=== PATIENT | male | born 1940 | race Caucasian/White ===

== ENCOUNTER 2019-04-29 19:15 | Inpatient (IN) | payer BC, MEDICARE ==
--- NOTE | 2019-04-29 19:35 | EDM.PDOC ---
ED HPI GENERAL MEDICAL PROBLEM - General Chief Complaint: General Stated Complaint: MEDICAL [facility] Time Seen by Provider: 04/29/19 19:35 Source of Information: Reports: Patient, EMS History Limitations: Reports: No Limitations - History of Present Illness INITIAL COMMENTS - FREE TEXT/NARRATIVE: pt had been at a friends tonight for supper. He did not turn the yard lit on and he went out to the car to leave. He slipped and hit his nose and his face on the car. He is having pain in the left shoulder and he has weakness in the left hand. Onset: Sudden Duration: Hour(s): Location: Reports: Face, Neck, Upper Extremity, Left Associated Symptoms: Reports: Weakness, Other (pt has weakness in the left hand. ) - Related Data Allergies Allergy/AdvReac Type Severity Reaction Status Date / Time lisinopril Allergy Other Verified 04/29/19 19:22 Home Meds: Home Meds Allopurinol [Zyloprim] 300 mg PO DAILY 03/25/16 [History] Aspirin 325 mg PO BEDTIME 03/25/16 [History] Furosemide 40 mg PO BIDAC #60 tablet 03/25/16 [Rx] metFORMIN HCl [Metformin HCl] 1,000 mg PO DAILY 03/25/16 [History] Insulin NPH/Insulin Reg,Human [Novolin 70-30] 40 units SQ BEDTIME 04/29/19 [ History] Insulin NPH/Insulin Reg,Human [Novolin 70-30] 60 units SQ DAILY 04/29/19 [ History] Metoprolol Succinate 100 mg PO DAILY 04/29/19 [History] Potassium Chloride 10 meq PO BEDTIME 04/29/19 [History] Potassium Chloride 20 meq PO DAILY 04/29/19 [History] Warfarin [Coumadin] 5 mg PO DAILY 04/29/19 [History] atorvaSTATin [Lipitor] 40 mg PO BEDTIME 04/29/19 [History] Past Medical History HEENT History: Reports: Cataract Cardiovascular History: Reports: Heart Failure, High Cholesterol, Hypertension Musculoskeletal History: Reports: Other (See Below) Other Musculoskeletal History: torn rotator cuff Endocrine/Metabolic History: Reports: Diabetes, Type II - Infectious Disease History Infectious Disease History: Reports: Mumps - Past Surgical History HEENT Surgical History: Reports: Cataract Surgery Cardiovascular Surgical History: Reports: Coronary Artery Bypass Musculoskeletal Surgical History: Reports: Shoulder Surgery Social & Family History - Family History Endocrine/Metabolic: Reports: Diabetes, type II - Caffeine Use Caffeine Use: Reports: Coffee ED ROS GENERAL - Review of Systems Review Of Systems: See Below Constitutional: Reports: No Symptoms HEENT: Reports: Other (pt hit his nose on the car and he has a nose bleed. A clamp was placed on the nose. ) Respiratory: Reports: No Symptoms Cardiovascular: Reports: No Symptoms Endocrine: Reports: No Symptoms GI/Abdominal: Reports: No Symptoms : Reports: No Symptoms Musculoskeletal: Reports: Other (pain in the left shoulder, weakness in lsft hand, paion in the cervical are and he has bruising over the nose. ) ED EXAM, GENERAL - Physical Exam Exam: See Below Free Text/Narrative:: pt arrived with a nose bleed and swelling of the nasal area. He has pain in the cervical area. He has a history of being on coumadin. Pt was going to get in his car and he missed the door handle and he hit his face on the handle. He was not knocked out. Exam Limited By: No Limitations General Appearance: Alert, Anxious, Moderate Distress, Other (pupils are equal and reactive.) Ears: Normal TMs Nose: Nasal Tenderness, Nasal Swelling, Other ( there is bleeding from the left nare area. ) Throat/Mouth: Normal Inspection Head: Atraumatic Neck: Tender Lateral, Other (pt is tender in the left post cervcal area. He is having difficulty using his left hand. He is having trouble making a fist. ) Respiratory/Chest: No Respiratory Distress Cardiovascular: Regular Rate, Rhythm GI/Abdominal: Soft, Non-Tender (Male) Exam: Deferred Rectal (Males) Exam: Deferred Back Exam: Normal Inspection Extremities: Other (He is having trouble making a fist with the left hand. ) Neurological: Alert, Oriented, Normal Cognition Psychiatric: Normal Affect Course - Vital Signs Last Recorded V/S: Last Vital Signs Temp 37.1 C 04/29/19 20:10 Pulse 69 04/29/19 22:45 Resp 20 04/29/19 22:45 BP 102/50 L 04/29/19 22:45 Pulse Ox 94 L 04/29/19 22:45 - Orders/Labs/Meds Orders: Active Orders 24 hr Category Date Time Status cefTRIAXone [Rocephin] 1 gm Med 04/29/19 23:42 Active Sodium Chloride 0.9% [Normal Saline] 50 ml IV ONETIME Medication Orders Ceftriaxone Sodium 1 gm/ (Sodium Chloride) 50 mls @ 100 mls/hr IV ONETIME ONE Stop: 04/30/19 00:11 Labs: Laboratory Tests 04/29/19 Range/Units 19:59 PT 20.6 H (9.5-12.0) sec INR 1.98 H (0.80-1.20) Meds: Medications Generic Name Dose Route Start Last Admin Trade Name Freq PRN Reason Stop Dose Admin Ceftriaxone Sodium 1 gm/ 50 mls @ 100 mls/hr 04/29/19 23:42 Sodium Chloride IV 04/30/19 00:11 ONETIME ONE Discontinued Medications Generic Name Dose Route Start Last Admin Trade Name Freq PRN Reason Stop Dose Admin Hydromorphone HCl 0.5 mg 04/29/19 20:12 04/29/19 20:15 Dilaudid IVPUSH 04/29/19 20:13 0.5 mg ONETIME ONE Administration Hydromorphone HCl 0.5 mg 04/29/19 22:23 04/29/19 22:34 Dilaudid IVPUSH 04/29/19 22:24 0.5 mg ONETIME ONE Administration - Re-Assessments/Exams Free Text/Narrative Re-Assessment/Exam: 04/29/19 22:49 pt arrived with pain in his neck and facial area. He is on coumadin. He had a cat scan of the head which was neg. He had a cat scan of the cervical spine that showed degenerative changes but no acute fracture. He had a xray of his left shoulder that was neg. 04/29/19 23:44 Dr Conklin neurosurgery [facility] was consulted regarding admitting pt to the local Hosp. She felt this was a cord contussion but recommended a soft collar for over nite and a MRI of the cervical spine in the am. 04/29/19 23:59 pt is on coumadin therapy and he had persistent bleeding from both nares. A cat scan of the facial area showed blood in the sinuses and a nasal fracture. He was packed with a rapid rhino on the left and a ant pack was placed with vaseline guaze on the rt. At this point is bleeding is under control. He had his last tetanus in 2013. He was stood up and the numbness in his legs are better. He is able to stand but because of all the blood loss he is lite headed when he stands. Departure - Departure Time of Disposition: 23:51 Disposition: Admitted As Inpatient 65 Condition: Fair Clinical Impression: Spinal cord concussion, Nasal fracture, Bleeding from the nose - Discharge Information Referrals: PCP,None [Primary Care Provider] - Forms: ED Department Discharge Care Plan Goals: admit to Dr Alvarado - My Orders Last 24 Hours: My Active Orders 04/29/19 23:42 cefTRIAXone [Rocephin] 1 gm Sodium Chloride 0.9% [Normal Saline] 50 ml IV ONETIME - Assessment/Plan Last 24 Hours: My Active Orders 04/29/19 23:42 cefTRIAXone [Rocephin] 1 gm Sodium Chloride 0.9% [Normal Saline] 50 ml IV ONETIME
[2019-04-29] MEDS ORDERED: HYDROmorphone 0.5 MG/0.5 ML Syringe IVPUSH ONE ×2 (20:12→22:23)
--- NOTE | 2019-04-29 21:29 | CRLCR ---
Indication: Left shoulder pain, left hand weakness Technique: Three views of the left shoulder Comparison: None Findings/Impression: There is no fracture or intrinsic bone lesion. The glenohumeral joint is anatomically aligned. The surrounding soft tissues are unremarkable. Dictated by Herminio Fischer MD @ Apr 29 2019 9:26PM Signed by Dr. Herminio Fischer @ Apr 29 2019 9:27PM
--- NOTE | 2019-04-29 21:49 | CRLCT ---
Indication: Neck pain, left hand weakness Technique: Nonenhanced axial CT imaging through the head. Coronal reconstructions are provided. Comparison: None Findings: There is no intracranial hemorrhage, edema, or mass effect. There is mild patchy hypoattenuation of the periventricular white matter likely reflecting chronic microvascular ischemic change. The ventricles are normal in size. The basal cisterns are patent. The calvarium is intact. There is a frontal scalp hematoma. There is partial opacification of the right frontal sinus, ethmoid air cells, and partially visualized right maxillary sinus with air-fluid level in hyperdense contents in the right maxillary sinus, likely reflecting hemorrhage. Fracture of the bony nasal septum is suggested. Impression: 1. No acute intracranial process. 2. Hyperdense fluid in the right maxillary sinus suggesting hemorrhage and likely fracture of the bony nasal septum. Dedicated facial CT is recommended for further evaluation. Please note that all CT scans at this facility use dose modulation, iterative reconstruction, and/or weight-based dosing when appropriate to reduce radiation dose to as low as reasonably achievable. Dictated by Herminio Fischer MD @ Apr 29 2019 9:41PM Signed by Dr. Herminio Fischer @ Apr 29 2019 9:47PM
--- NOTE | 2019-04-29 22:37 | CRLCT ---
Indication: Blow to the head, nose, and cervical spine, left hand weakness Technique: Nonenhanced axial CT imaging through the cervical spine. Sagittal and coronal reconstructions are provided. Comparison: None Findings: There is mild thickening of the. Small calcific focus along the anterior inferior margin of the C4 vertebral body is favored to represent ligamentous calcification. No definite cervical spine fracture is demonstrated. The cervical vertebral bodies are normal in height. The atlantoaxial and atlantooccipital relationships are maintained. There is reversal of cervical lordosis centered at C5-6. There is moderate degenerative disc height loss at C5-6 with disc bulging endplate osteophytosis resulting in moderate spinal stenosis and severe bilateral neural foraminal stenosis. There is also prominent degenerative facet hypertrophy at C2-3 and C3-4 on the left resulting in severe neural foraminal stenosis at both levels. Impression: 1. Mild indeterminate thickening of the prevertebral soft tissues of the lower cervical levels. Further evaluation with MRI is recommended to exclude ligamentous injury. 2. No acute fracture or traumatic malalignment. 3. Multilevel degenerative changes, as above. Please note that all CT scans at this facility use dose modulation, iterative reconstruction, and/or weight-based dosing when appropriate to reduce radiation dose to as low as reasonably achievable. Dictated by Herminio Fischer MD @ Apr 29 2019 10:25PM Signed by Dr. Herminio Fischer @ Apr 29 2019 10:37PM
--- NOTE | 2019-04-29 23:12 | CRLCT ---
Indication: Head trauma, facial fractures Technique: Nonenhanced axial CT images through the face. Sagittal and coronal reconstructions are provided. Comparison: CT head without contrast 04/19/2019 Findings: There is suggestion of a minimally displaced fracture of the right nasal bone. Again demonstrated is a minimally displaced fracture through the anterior portion of the bone use obtained. Hyperdense fluid in the right maxillary and sphenoid sinuses is compatible with small amount of hemorrhage. No fractures are seen through the orbital young, maxillary sinus young, and zygomatic arches. The orbital contents are normal. The mandible is intact. The temporomandibular joints are anatomically aligned. The skullbase appears intact. The mastoid air cells are well aerated. A hematoma is again noted in the superior nasal/frontal scalp. Impression: Likely minimally displaced fracture of the right nasal bone and fracture of the osseous nasal septum. Mild hemorrhage within the right maxillary and sphenoid sinuses. No evidence of maxillary sinus, orbital wall, or skullbase fracture. Please note that all CT scans at this facility use dose modulation, iterative reconstruction, and/or weight-based dosing when appropriate to reduce radiation dose to as low as reasonably achievable. Dictated by Herminio Fischer MD @ Apr 29 2019 10:53PM Signed by Dr. Herminio Fischer @ Apr 29 2019 11:11PM
[2019-04-29] MEDS ORDERED: cefTRIAXone 1 GM in Sodium Chloride 0.9% 50 ML IV ONE (23:42)
[2019-04-30] MEDS: Acetaminophen 325 MG Tab PO PRN ×2 (01:58→19:36)
--- NOTE | 2019-04-30 02:17 | HP ---
IDENTIFYING DATA: King Bhatt is a 78-year-old , male from [place], [place]. CHIEF COMPLAINT: "I fell." HISTORY OF PRESENT ILLNESS: Adult gentleman reports he was visiting a friend at suppertime this evening, as he was leaving the residence and walking toward his car, he reached for the car, slipped and fell, striking his face on the doorframe. He denies loss of consciousness or dizziness, though following the fall had significant weakness in the left upper extremity with paresthesias in the arms and legs. He was unable to ambulate with injuries to the facial area noted. He was transported to the emergency room for evaluation. He notes some interval improvement in his arm weakness as well as leg weakness. He has had no history of stroke or previous similar occurrence. He does report a history of cardiac arrhythmia with long-term Coumadin anticoagulant therapy accompanying his noted ischemic heart disease. PAST MEDICAL HISTORY: History of type 2 diabetes with b.i.d. NPH insulin therapies, followed by his [facility] physician in [place]. Denies a history of stroke or stroke-like symptoms. No history of glaucoma. No chronic neuropathy or paresthesias in the feet. Does have a reported history of coronary artery disease with 3-vessel coronary artery bypass graft in 2005. Additionally, he reports cardiac catheterization and stent placement 3 years ago. No recent episodes of angina-like pain. No palpitations, syncope, or near syncope reported. Also has a recognized history of hyperuricemia with gout, hypertension, ischemic cardiomyopathy with congestive heart failure, and hyperlipidemia. Additionally, he has a recognized history of hearing loss. Does have bilateral hearing aids, currently not worn. PREVIOUS SURGERIES: Include CABG, coronary artery stenting, and bilateral cataract extractions. HABITS: Nonsmoker of greater than 20 years' time. Infrequent use of caffeinated beverages. No alcohol use reported. ALLERGIES: REPORTED TO LISINOPRIL. CURRENT MEDICATIONS: Include allopurinol 300 mg daily, aspirin 325 mg at bedtime, furosemide 40 mg b.i.d., metformin 1000 mg daily; NPH insulin 70/30, 40 units at bedtime, 60 units in a.m.; metoprolol succinate 100 mg daily; potassium chloride 10 mEq at bedtime, 20 mEq in a.m.; Coumadin 5 mg daily, atorvastatin 40 mg at bedtime. SOCIAL HISTORY: Retired, living independently [place]. Generally performs ADLs without assistance. Drives without difficulty. FAMILY HISTORY: Noncontributory. REVIEW OF SYSTEMS: NEUROLOGIC: No history of strokes, chronic headaches, retinopathy, or chronic visual loss. Denies glaucoma. Does have a history of bilateral cataract extraction. No history of paresthesias, weakness, general imbalance, or peripheral neuropathy. CARDIAC: As above. RESPIRATORY: Denies asthma, emphysema, chronic cough, sputum production, or recent URIs. GI: No chronic dyspepsia, hepatitis, jaundice, gallbladder disease, bowel changes, diarrhea, or hematochezia. : Voids twice nightly. Records indicate a history of stage III renal insufficiency. No urinary incontinence. No dysuria or gross hematuria. MUSCULOSKELETAL: History of rotator cuff disease. No chronic arthralgias in the upper or lower extremities. PHYSICAL EXAMINATION: GENERAL: Appearance is that of an elderly male, resting comfortably in the emergency room bay, significant facial bruising is noted. VITAL SIGNS: Temperature 37.1, pulse 69 and regular, respiratory rate 20, blood pressure 102/50, O2 saturations 94% on room air. HEENT: Markedly diminished hearing. Hearing aids are not currently in place. Canals and TMs are normal. Eyes reveal previous cataract extractions. Symmetrical extraocular eye movements without nystagmus. Sclerae anicteric. Nasal packing in place bilaterally. Significant bruising in the periorbital and nasal regions. Mouth is dry. Dentures are worn. No evidence of acute oropharyngeal trauma. NECK: Brisk carotid pulses. No stridor or adenopathy. LUNGS: Symmetrical, clear, resonant, non-tachypneic. HEART: Regular. Rhythm strip suggests underlying atrial fibrillation with controlled rate. ABDOMEN: Soft, nontender, nondistended. No organomegaly. Active sounds. Good femoral pulses. No abdominal bruits. No guarding, rebound, or referred pain. No CVA tenderness. EXTREMITIES: Abrasion over the anterior left knee. Good radial and posterior tibial pulses. Non-diaphoretic. No cyanosis noted. He has mild weakness with right hand grasp, more significant weakness with hand grasp and extension of the digits of the left arm as well as flexion and extension across the elbow and left wrist. He reports of initial lower extremity weakness, though now shows good flexion and extension on command at the great toes and ankles. He is not ambulated at the present time. LABORATORY DATA: On admission, INR 1.98. IMAGING: CT of the sinuses reveal evidence of a nasal fracture as well as blood in the right maxillary and sphenoid sinus without evidence of orbital wall or skull base fracture. Shoulder x-ray showed no acute bony injury. Cervical spine CT again shows no evidence of acute bony injury or trauma to the cord. No spinal canal bleeding is evident. IMPRESSION: 1. Fall. The patient denying loss of consciousness, resultant facial contusion with nasal fracture and mild sinus bleeding into the right maxillary and sphenoid area. 2. Weakness of the lower extremities and left upper extremity showing interval improvement since fall. Consider cord contusion. No evidence of acute neurologic injury by CT imaging. 3. History of coronary artery disease status post CABG of 2005. More recent history of 3- vessel cardiac stenting with stable ischemic heart disease. 4. Hypertension. 5. Hyperlipidemia. 6. Type 2 diabetes with chronic insulin therapies. 7. Hyperuricemia with history of gout on allopurinol therapy. 8. Chronic shoulder pain secondary to rotator cuff disease. 9. Stage III renal insufficiency. PLAN: With patient's acute injury and neurologic weakness, he is unable to care for self in an unmonitored setting. Therefore, we will admit to observation bed with routine vitals and neuro checks, assistance with performance of ADLs and ambulation. We will request PT assessment in the a.m. Neurosurgery Services have suggested further imaging with MRI of the cervical spine, though given history of coronary artery bypass graft and arterial stenting, he is not a candidate for MR imaging. Therefore, we will continue to monitor in the observation setting. Coumadin and aspirin therapies will be held in the immediate post injury period, with anticipated resumption as his condition stabilizes. We will monitor b.i.d. gluco checks, provide consistent carb diet as well as insulin, and increase activity as tolerated. Consider discharge to home when neurologic status is stable and the patient is able to assume independent performance of activities of daily living. Full code status is to be maintained during the hospital stay. Todd Alvarado MD /[id number]
[2019-04-30] MEDS ORDERED: traMADol 50 MG Tab PO PRN (03:01)
[2019-04-30] MEDS ORDERED: Lidocaine 2% Jelly 10 ML Urojet MUCMEM STA (03:35)
[2019-04-30] MEDS ORDERED: Acetaminophen/HYDROcodone 325-10 MG Tab PO PRN (05:19)
[2019-04-30] MEDS: oxyCODONE 5 MG Tab PO PRN ×3 (07:54→19:35)
[2019-04-30] MEDS ORDERED: Insulin NPH/Insulin Regular,Human 70-30 100 Units/ML 10 ML Vial SUBCUT SCH ×4 (09:00→21:00)
[2019-04-30] MEDS ORDERED: Potassium Chloride 20 MEQ Tab.ER PO ONE (12:00)
--- NOTE | 2019-04-30 12:40 | PN ---
DATE OF SERVICE: 04/30/2019 SUBJECTIVE: A 78-year-old male living independently, was admitted in the electronic assembly hours following a fall and resultant facial trauma with accompanying upper and lower extremity weakness suggesting a potential cervical spine contusion. He has had significant facial pain through the nighttime hours. Analgesic therapy was escalated from tramadol to hydrocodone to oxycodone, now notes relative relief. Bilateral nasal packings are in place for reasons of significant persistent epistaxis on arrival. He is taking liquids and small amounts of food without discomfort. Denies dysphagia. No visual disturbance. Chronic hearing loss is managed with use of hearing aids. He continues to have significant weakness in the upper and lower extremities, being transferred with Muna lift and moderate to marked left hand weakness with grasp and mild to moderate right-sided weakness. No paresthesias are noted. No cardiac, respiratory, or GI complaints. He has a recognized history of ischemic heart disease with previous coronary artery bypass graft of 2005 and subsequent 3-vessel coronary artery stenting approximately 3 years ago. Additionally, he has paroxysmal atrial fibrillation with use of Coumadin anticoagulant therapy. Coumadin therapy is now on hold. Diabetes is managed with use of Novolin 70/30 on a b.i.d. schedule. Unsure of last diabetic labs obtained by his [facility] provider. He did have bladder distention and urinary retention through the nighttime with bladder scan revealing 1000 mL of retained urine necessitating placement of a Rubi catheter. OBJECTIVE: VITAL SIGNS: Temperature 37.3, pulse rate 69, AFib by cardiac monitoring, blood pressure 105/72, respiratory rate 20 with O2 saturations of 96% on room air. GENERAL: He is awake, attentive, oriented to person, place, and time. Hearing remains diminished, though hearing aids are in place. He has significant bruising in the periorbital and nasal regions. Nasal packings bilaterally remain in place. Speech is clear. NECK: No pain is noted. Good range of motion. Brisk carotid pulses without bruits. LUNGS: Few inspiratory rales, non-tachypneic. No wheezes. HEART: Atrial fibrillation by cardiac monitoring. Controlled rate. No murmurs noted. EXTREMITIES: Significant weakness with left hand grasp as well as flexion and extension at the left elbow. Mild weakness with right hand grasp. He has good abduction at the shoulders against resistance, is able to raise hands overhead as well. Normal sensation in the fingertips. He has reasonably well-maintained strength to dorsi and plantar flexion of the ankles and great toes, though has instability and imbalance when standing requiring use of Muna lift. IMPRESSION: 1. Fall with facial contusions leading to nasal fracture with epistaxis. 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 This is not confirmed by presenting CT imaging obtained in the emergency room. 2. History of ischemic heart disease, chronic, stable, prior coronary artery bypass graft and vascular stenting. 3. Type 2 diabetes, on insulin therapies. 4. Hypertension and hyperlipidemia. 5. Hearing loss. PLAN: PT/OT assessments are requested today to determine rehabilitative needs. The patient understands if weakness is persistent, he may require transfer to a rehab unit or alf for ongoing supportive and rehabilitative cares. Atrial fibrillation is currently stable. Coumadin anticoagulant therapy has been held given his presentation of nasal bleeding. Anticipate removal of nasal packing in 24 to 48 hours and potential resumption of his Coumadin therapy when condition stabilizes. Note, he had no evidence of posterior sinus, orbital, or cranial fractures on imaging. We will continue with his b.i.d. insulin therapies as well as b.i.d. Gluco Cheks. Allow consistent carb diet and fluid intake as desired. I have requested documentation regarding his cardiac interventional therapy provided by [facility] in [place]. If his stents and previous CABG are MRI compatible, we will then request MRI of the head and cervical spine to exclude other confirmed etiologies of his neurologic deficits. Care will be turned over to Hospitalist Service with Dr. Teixeira accepting responsibility for patient management. Todd Alvarado MD /[id number]
[2019-04-30] MEDS: Allopurinol 300 MG Tab PO SCH (13:10)
[2019-04-30] MEDS: metFORMIN 500 MG Tab PO SCH (13:10)
[2019-04-30] MEDS: Metoprolol Succinate 50 MG Tab.ER PO SCH (15:19)
--- NOTE | 2019-04-30 16:09 | MR ---
Cervical Spine Comp wo Cont CLINICAL HISTORY: Left arm and leg weakness, recent trauma TECHNIQUE: Sagittal and axial T2 and sagittal T1-weighted images were obtained through the cervical spine without contrast. All images were obtained on a 1.5 Myrna superconducting magnet. COMPARISON: CT cervical spine 04/29/2019 FINDINGS: There is motion artifact reducing some resolution. Vertebral body heights are maintained. There is diffuse spondylosis. There is reactive change at the inferior endplate of C3 related to an adjacent Schmorl's node. There is reversal of the normal cervical lordosis. There is soft tissue edema and fluid in the prevertebral space extending from the C2-3 space downward. There is a small fluid collection just anterior to C6. These findings may be related to soft tissue injury associated with the anterior longitudinal ligament. There is no subluxation. Axial images show concentric disc bulging and spondylosis at C2-3. There is uncovertebral joint spurring causing left neural foraminal encroachment. There is disc osteophyte complex at C3-4 with severe central canal stenosis. There is effacement of the anterior cord. There is moderate encroachment on the left neural foramina. There is disc osteophyte complex at C4-5 which abuts the anterior cord. There is moderate central canal stenosis and bilateral neural foraminal encroachment. There is moderate the disc osteophyte complex at C5-6 causing very severe central canal stenosis and effacement of the cervical cord. There is severe bilateral neural foraminal encroachment. There is disc osteophyte complex at C6-7 abutting the anterior cord. There is moderate central canal stenosis and encroachment on the neural foramina bilaterally. 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 This causes moderate to severe central canal stenosis at multiple levels most notable at C5-6 with significant effacement of the cord. There are multiple levels of moderate neural foraminal encroachment bilaterally There is no fracture or subluxation but there is moderate edema and some fluid in the prevertebral soft tissues which may relate to soft tissue or ligamentous injury
--- NOTE | 2019-04-30 16:14 | MR ---
Brain wo Cont CLINICAL HISTORY: Recent injury, left-sided weakness COMPARISON: CT brain 04/29/2019 TECHNIQUE: Multiple axial, sagittal, and coronal images were obtained on a 1.5 T magnet with multiweighted sequences, FLAIR, and diffusion imaging without contrast. FINDINGS: There is no focal mass lesion. There is no hemmorhage or extraaxial collection. There is no restricted diffusion. The basal cisterns and sulci over the convexities are prominent. The ventricles are normal for age. There are some scattered T2 hyperintensities in the periventricular region. There is fluid in both maxillary sinuses and significant swelling in the nasal mucosa and lower posterior ethmoid sinuses. The this is related to the recent facial trauma. IMPRESSION: No acute intracranial abnormality Fluid in the sinuses, right greater than left, related to recent facial trauma
[2019-04-30] MEDS: Dexamethasone 4 MG Tab PO SCH (21:32)
[2019-04-30] MEDS: atorvaSTATin 20 MG Tab PO SCH (21:32)
[2019-04-30] MEDS: Potassium Chloride 10 MEQ Cap.ER PO SCH (21:32)
[2019-04-30] MEDS: Insulin Lispro 100 Unit/ML 3 ML KwikPen SUBCUT PRN (21:40)
[2019-04-30] MEDS: Insulin NPH/Insulin Regular,Human 70-30 100 Units/ML 10 ML Vial SUBCUT SCH (21:40)
[2019-05-01] MEDS: oxyCODONE 5 MG Tab PO PRN ×2 (03:04→20:34)
[2019-05-01] MEDS: Acetaminophen 325 MG Tab PO PRN ×2 (03:04→20:35)
[2019-05-01] MEDS: metFORMIN 500 MG Tab PO SCH (08:26)
[2019-05-01] MEDS: Insulin Lispro 100 Unit/ML 3 ML KwikPen SUBCUT PRN ×3 (08:27→20:50)
[2019-05-01] MEDS: Dexamethasone 4 MG Tab PO SCH ×2 (08:27→20:36)
[2019-05-01] MEDS: Metoprolol Succinate 50 MG Tab.ER PO SCH (08:28)
[2019-05-01] MEDS: Allopurinol 300 MG Tab PO SCH (08:28)
[2019-05-01] MEDS: Insulin NPH/Insulin Regular,Human 70-30 100 Units/ML 10 ML Vial SUBCUT SCH ×2 (08:32→20:59)
[2019-05-01] MEDS ORDERED: Potassium Chloride 20 MEQ Tab.ER PO ONE (09:00)
--- NOTE | 2019-05-01 12:45 | PCM.PN ---
- General Info Date of Service: 05/01/19 Subjective Update: No acute events overnight. Patient still reports weakness in his upper extremities with the left being weaker than the right but this has improved a fair amount since last night. 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 No complaints of headache or neck pain. Rhino Rocket and nasal packing were both removed today with no continued bleeding from either nostril. Appetite little better today. Blood sugars have been well- controlled. Strength is improving and he is doing better with the Renata steady. Functional Status: Reports: Pain Controlled, Tolerating Diet - Review of Systems General: Reports: Weakness Musculoskeletal: Denies: Neck Pain Neurological: Reports: Tingling (feet), Weakness (both hands L>R) - Patient Data Vitals - Most Recent: Last Vital Signs Temp 37.3 C 05/01/19 11:00 Pulse 95 05/01/19 11:00 Resp 18 05/01/19 11:00 BP 114/53 L 05/01/19 11:00 Pulse Ox 96 05/01/19 11:00 Weight - Most Recent: 101.5 kg I&O - Last 24 Hours: Intake & Output 04/30/19 05/01/19 05/01/19 22:59 06:59 14:59 Intake Total 600 300 490 Output Total 325 750 Balance 275 -450 490 Lab Results Last 24 Hours: Laboratory Results - last 24 hr 05/01/19 05/01/19 05/01/19 Range/Units 05:19 05:19 05:19 WBC 12.3 H (4.5-11.0) K/uL RBC 3.66 L (4.30-5.90) M/uL Hgb 10.2 L (12.0-15.0) g/dL Hct 33.1 L (40.0-54.0) % MCV 90 (80-98) fL MCH 28 (27-31) pg MCHC 31 L (32-36) % Plt Count 199 (150-400) K/uL PT 18.8 H (9.5-12.0) sec INR 1.80 H (0.80-1.20) Sodium 137 L (140-148) mmol/L Potassium 3.7 (3.6-5.2) mmol/L Chloride 100 (100-108) mmol/L Carbon Dioxide 27 (21-32) mmol/L Anion Gap 13.7 (5.0-14.0) mmol/L BUN 42 H (7-18) mg/dL Creatinine 1.5 H (0.8-1.3) mg/dL Est Cr Clr Drug Dosing 41.23 mL/min Estimated GFR (MDRD) 45 L (>60) Glucose 162 H (74-106) mg/dL Calcium 8.7 (8.5-10.1) mg/dL Med Orders - Current: Current Medications Acetaminophen (Tylenol) 650 mg PO Q4H PRN PRN Reason: Pain Last Admin: 05/01/19 03:04 Dose: 650 mg Allopurinol (Zyloprim) 300 mg PO DAILY [facility] Last Admin: 05/01/19 08:28 Dose: 300 mg Atorvastatin Calcium (Lipitor) 40 mg PO BEDTIME [facility] Last Admin: 04/30/19 21:32 Dose: 40 mg Dexamethasone (Dexamethasone) 4 mg PO BID [facility] Last Admin: 05/01/19 08:27 Dose: 4 mg Insulin Human Isoph/Insulin Regular (Humulin 70-30) 20 units SUBCUT BEDTIME [facility] Last Admin: 04/30/19 21:40 Dose: 20 units Insulin Human Isoph/Insulin Regular (Humulin 70-30) 30 units SUBCUT DAILY [facility] Last Admin: 05/01/19 08:32 Dose: 30 units Insulin Human Lispro (Humalog) 0 unit SUBCUT ASDIRECTED PRN; Protocol PRN Reason: BLOOD SUGARS Last Admin: 05/01/19 08:27 Dose: 1 unit Metformin HCl (Glucophage) 1,000 mg PO DAILY@0800 [facility] Last Admin: 05/01/19 08:26 Dose: 1,000 mg Metoprolol Succinate (Toprol Xl) 100 mg PO DAILY [facility] Last Admin: 05/01/19 08:28 Dose: 100 mg Oxycodone HCl (Oxycodone) 5 mg PO Q4H PRN PRN Reason: Pain Last Admin: 05/01/19 03:04 Dose: 5 mg Potassium Chloride (Potassium Chloride) 10 meq PO BEDTIME [facility] Last Admin: 04/30/19 21:32 Dose: 10 meq Discontinued Medications Hydrocodone Bitart/Acetaminophen ([place]lin 325-10 Mg) 1 tab PO Q6H PRN PRN Reason: Pain Last Admin: 04/30/19 05:39 Dose: 1 tab Hydromorphone HCl (Dilaudid) 0.5 mg IVPUSH ONETIME ONE Stop: 04/29/19 20:13 Last Admin: 04/29/19 20:15 Dose: 0.5 mg Hydromorphone HCl (Dilaudid) 0.5 mg IVPUSH ONETIME ONE Stop: 04/29/19 22:24 Last Admin: 04/29/19 22:34 Dose: 0.5 mg Ceftriaxone Sodium 1 gm/ (Sodium Chloride) 50 mls @ 100 mls/hr IV ONETIME ONE Stop: 04/30/19 00:11 Last Admin: 04/30/19 00:13 Dose: 100 mls/hr Insulin Human Isoph/Insulin Regular (Humulin 70-30) 40 units SUBCUT BEDTIME [facility] Insulin Human Isoph/Insulin Regular (Humulin 70-30) 60 units SUBCUT DAILY [facility] Last Admin: 04/30/19 09:19 Dose: 60 units Lidocaine HCl (Xylocaine 2% Jelly) 10 ml MUCMEM ONETIME STA Stop: 04/30/19 03:36 Last Admin: 04/30/19 03:54 Dose: 10 ml Potassium Chloride (Klor-Con M20) 40 meq PO ONETIME ONE Stop: 04/30/19 12:01 Last Admin: 04/30/19 13:18 Dose: 40 meq Potassium Chloride (Klor-Con M20) 40 meq PO ONETIME ONE Stop: 05/01/19 09:01 Last Admin: 05/01/19 10:22 Dose: 40 meq Tramadol HCl (Ultram) 50 mg PO Q6H PRN PRN Reason: pain Last Admin: 04/30/19 03:53 Dose: 50 mg - Exam Quality Assessment: No: Supplemental Oxygen General: Alert, Oriented, Cooperative, No Acute Distress HEENT: Other (bilateral orbital ecchymoses ) Lungs: Normal Respiratory Effort Cardiovascular: Regular Rate, Regular Rhythm GI/Abdominal Exam: Soft, No Distention Extremities: No Pedal Edema Neurological: No: Strength Equal Bilateral (both hand pad machine operator weak but left more so than right ) Psy/Mental Status: Alert, Normal Affect - Problem List Review Problem List Initiated/Reviewed/Updated: Yes - My Orders Last 24 Hours: My Active Orders 04/30/19 17:01 Discontinue Telemetry Monitoring [Cardiac Monitoring Discontinue] [RC] Click to Edit 04/30/19 17:02 Communication Order [RC] PRN Communication Order [RC] PRN Diabetes Education [RC] Click to Edit Notify Provider [RC] PRN 04/30/19 17:14 Admission Status [Patient Status] [ADT] Routine 04/30/19 17:15 Insulin Lispro [HumaLOG] See Protocol SUBCUT ASDIRECTED PRN 04/30/19 21:00 Insulin NPH/Insulin Reg,Human [HumuLIN 70-30] 20 units SUBCUT BEDTIME dexAMETHasone 4 mg PO BID 05/01/19 03:15 Rubi Catheter Insertion [Insert Urinary Catheter] [OM.PC] Q24H 05/01/19 09:00 Insulin NPH/Insulin Reg,Human [HumuLIN 70-30] 30 units SUBCUT DAILY 05/01/19 16:30 GLUCOSE POC LAB TO COLLECT [POC] QIDACANDBED 05/01/19 21:00 GLUCOSE POC LAB TO COLLECT [POC] QIDACANDBED 05/02/19 07:30 GLUCOSE POC LAB TO COLLECT [POC] QIDACANDBED 05/02/19 11:30 GLUCOSE POC LAB TO COLLECT [POC] QIDACANDBED 05/02/19 16:30 GLUCOSE POC LAB TO COLLECT [POC] QIDACANDBED 05/02/19 21:00 GLUCOSE POC LAB TO COLLECT [POC] QIDACANDBED 05/03/19 07:30 GLUCOSE POC LAB TO COLLECT [POC] QIDACANDBED 05/03/19 11:30 GLUCOSE POC LAB TO COLLECT [POC] QIDACANDBED 05/03/19 16:30 GLUCOSE POC LAB TO COLLECT [POC] QIDACANDBED 05/03/19 21:00 GLUCOSE POC LAB TO COLLECT [POC] QIDACANDBED 05/04/19 07:30 GLUCOSE POC LAB TO COLLECT [POC] QIDACANDBED 05/04/19 11:30 GLUCOSE POC LAB TO COLLECT [POC] QIDACANDBED 05/04/19 16:30 GLUCOSE POC LAB TO COLLECT [POC] QIDACANDBED 05/04/19 21:00 GLUCOSE POC LAB TO COLLECT [POC] QIDACANDBED 05/05/19 07:30 GLUCOSE POC LAB TO COLLECT [POC] QIDACANDBED 05/05/19 11:30 GLUCOSE POC LAB TO COLLECT [POC] QIDACANDBED 05/05/19 16:30 GLUCOSE POC LAB TO COLLECT [POC] QIDACANDBED 05/05/19 21:00 GLUCOSE POC LAB TO COLLECT [POC] QIDACANDBED 05/06/19 07:30 GLUCOSE POC LAB TO COLLECT [POC] QIDACANDBED - Plan Plan:: ASSESSMENT AND PLAN - Cervical spine injury with contusion - MRI showed chronic stenosis of the cervical spine with some acute swelling related to his injury. No evidence for cervical spine fracture. Still has some left hand weakness but is clinically improving. -Continue dexamethasone -Physical therapy -Increase activity as tolerated -Continue neck brace when up in chair or about -Warfarin will remain on hold with recent trauma Fall with nasal fracture - initially there was some difficulty with epistaxis but this has resolved and the Rhino Rocket is removed. Has bilateral orbital ecchymoses but otherwise seems to be doing well. He does have mild to moderate pain related to the fractures but this has been controlled with oral medications. -Pain control Insulin-dependent type 2 diabetes mellitus - sugars a been well-controlled with reduced dose of his long-acting insulin. -Continue reduced dose of NPH with breakfast and supper -Sliding-scale insulin Chronic ischemic heart disease - stable with no active symptoms. Stage III chronic kidney disease - kidney function stable at this time. Maintenance issues - - DVT prophylaxis - warfarin and mechanical - GI prophylaxis - not indicated - Nutrition - consistent carbohydrate Admission justification - patient was transitioned to inpatient status last night with his suspected cervical spinal cord contusion and resulting neuromuscular dysfunction. Disposition - I would anticipate discharge home with home care after the hospital stay. Patient is adamant that he will not go to a [facility] facility for subacute rehabilitation. Wilberto Teixeira M.D.
[2019-05-01] MEDS: atorvaSTATin 20 MG Tab PO SCH (20:37)
[2019-05-01] MEDS: Potassium Chloride 10 MEQ Cap.ER PO SCH (20:37)
[2019-05-01] MEDS: Magnesium Hydroxide 400 MG/5 ML Susp 30 ML Cup PO PRN (20:54)
[2019-05-02] MEDS: Insulin NPH/Insulin Regular,Human 70-30 100 Units/ML 10 ML Vial SUBCUT SCH (09:03)
[2019-05-02] MEDS: Insulin Lispro 100 Unit/ML 3 ML KwikPen SUBCUT PRN ×4 (09:04→17:47)
[2019-05-02] MEDS: Dexamethasone 4 MG Tab PO SCH ×2 (09:08→21:09)
[2019-05-02] MEDS: metFORMIN 500 MG Tab PO SCH (09:08)
[2019-05-02] MEDS: Metoprolol Succinate 50 MG Tab.ER PO SCH (09:08)
[2019-05-02] MEDS: Allopurinol 300 MG Tab PO SCH (09:09)
[2019-05-02] MEDS ORDERED: Tamsulosin 0.4 MG Cap.ER PO ONE (10:15)
--- NOTE | 2019-05-02 12:17 | PCM.PN ---
- General Info Date of Service: 05/02/19 Subjective Update: No acute events overnight. Still weak today and requires significant assistance to stand or try to ambulate but a little better today. He thinks his right hand is almost back to normal and left hand is better but still quite weak. No fevers. Blood sugars moderately elevated. Tolerating steroid so far. Clinically seems to be getting better. Functional Status: Reports: Pain Controlled, Tolerating Diet - Review of Systems General: Reports: Weakness - Patient Data Vitals - Most Recent: Last Vital Signs Temp 36.6 C 05/02/19 11:23 Pulse 68 05/02/19 11:23 Resp 24 H 05/02/19 11:23 BP 102/63 05/02/19 11:23 Pulse Ox 94 L 05/02/19 11:23 Weight - Most Recent: 101.5 kg I&O - Last 24 Hours: Intake & Output 05/01/19 05/02/19 05/02/19 22:59 06:59 14:59 Intake Total 1380 Output Total 900 600 Balance 480 -600 Lab Results Last 24 Hours: Laboratory Results - last 24 hr 05/02/19 Range/Units 03:52 PT 17.6 H (9.5-12.0) sec INR 1.68 H (0.80-1.20) Med Orders - Current: Current Medications Acetaminophen (Tylenol) 650 mg PO Q4H PRN PRN Reason: Pain Last Admin: 05/01/19 20:35 Dose: 650 mg Allopurinol (Zyloprim) 300 mg PO DAILY [facility] Last Admin: 05/02/19 09:09 Dose: 300 mg Atorvastatin Calcium (Lipitor) 40 mg PO BEDTIME [facility] Last Admin: 05/01/19 20:37 Dose: 40 mg Dexamethasone (Dexamethasone) 4 mg PO BID [facility] Last Admin: 05/02/19 09:08 Dose: 4 mg Insulin Human Lispro (Humalog) 0 unit SUBCUT ASDIRECTED PRN; Protocol PRN Reason: BLOOD SUGARS Last Admin: 05/02/19 11:38 Dose: 1 unit Magnesium Hydroxide (Milk Of Magnesia) 30 ml PO BID PRN PRN Reason: Constipation Last Admin: 05/01/19 20:54 Dose: 30 ml Metformin HCl (Glucophage) 1,000 mg PO DAILY@0800 [facility] Last Admin: 05/02/19 09:08 Dose: 1,000 mg Metoprolol Succinate (Toprol Xl) 100 mg PO DAILY [facility] Last Admin: 05/02/19 09:08 Dose: 100 mg Oxycodone HCl (Oxycodone) 5 mg PO Q4H PRN PRN Reason: Pain Last Admin: 05/01/19 20:34 Dose: 5 mg Potassium Chloride (Potassium Chloride) 10 meq PO BEDTIME [facility] Last Admin: 05/01/19 20:37 Dose: 10 meq Discontinued Medications Hydrocodone Bitart/Acetaminophen ([place] 325-10 Mg) 1 tab PO Q6H PRN PRN Reason: Pain Last Admin: 04/30/19 05:39 Dose: 1 tab Hydromorphone HCl (Dilaudid) 0.5 mg IVPUSH ONETIME ONE Stop: 04/29/19 20:13 Last Admin: 04/29/19 20:15 Dose: 0.5 mg Hydromorphone HCl (Dilaudid) 0.5 mg IVPUSH ONETIME ONE Stop: 04/29/19 22:24 Last Admin: 04/29/19 22:34 Dose: 0.5 mg Ceftriaxone Sodium 1 gm/ (Sodium Chloride) 50 mls @ 100 mls/hr IV ONETIME ONE Stop: 04/30/19 00:11 Last Admin: 04/30/19 00:13 Dose: 100 mls/hr Insulin Human Isoph/Insulin Regular (Humulin 70-30) 40 units SUBCUT BEDTIME [facility] Insulin Human Isoph/Insulin Regular (Humulin 70-30) 60 units SUBCUT DAILY [facility] Last Admin: 04/30/19 09:19 Dose: 60 units Insulin Human Isoph/Insulin Regular (Humulin 70-30) 20 units SUBCUT BEDTIME [facility] Last Admin: 05/01/19 20:59 Dose: 20 units Insulin Human Isoph/Insulin Regular (Humulin 70-30) 30 units SUBCUT DAILY [facility] Last Admin: 05/02/19 09:03 Dose: 30 units Lidocaine HCl (Xylocaine 2% Jelly) 10 ml MUCMEM ONETIME STA Stop: 04/30/19 03:36 Last Admin: 04/30/19 03:54 Dose: 10 ml Potassium Chloride (Klor-Con M20) 40 meq PO ONETIME ONE Stop: 04/30/19 12:01 Last Admin: 04/30/19 13:18 Dose: 40 meq Potassium Chloride (Klor-Con M20) 40 meq PO ONETIME ONE Stop: 05/01/19 09:01 Last Admin: 05/01/19 10:22 Dose: 40 meq Tamsulosin HCl (Flomax) 0.4 mg PO ONETIME ONE Stop: 05/02/19 10:16 Last Admin: 05/02/19 11:28 Dose: 0.4 mg Tramadol HCl (Ultram) 50 mg PO Q6H PRN PRN Reason: pain Last Admin: 04/30/19 03:53 Dose: 50 mg - Exam Quality Assessment: No: Supplemental Oxygen General: Alert, Oriented, Cooperative, No Acute Distress Neck: Other (bilateral orbital ecchymoses ) Lungs: Normal Respiratory Effort GI/Abdominal Exam: Soft, No Distention Skin: Warm, Dry Neurological: No: Strength Equal Bilateral (diminished strength of both triceps and both hands but L>R) Psy/Mental Status: Alert, Normal Affect - Problem List Review Problem List Initiated/Reviewed/Updated: Yes - My Orders Last 24 Hours: My Active Orders 05/01/19 20:42 Magnesium Hydroxide [Milk of Magnesia] 30 ml PO BID PRN 05/02/19 14:00 DC Rubi Catheter [Urinary Catheter Removal] [RC] Per Unit Routine 05/02/19 16:30 GLUCOSE POC LAB TO COLLECT [POC] QIDACANDBED 05/02/19 21:00 GLUCOSE POC LAB TO COLLECT [POC] QIDACANDBED Insulin NPH/Insulin Reg,Human [HumuLIN 70-30] 30 units SUBCUT BEDTIME 05/03/19 05:00 BASIC METABOLIC PANEL,BMP [CHEM] Timed CBC W/O DIFF,HEMOGRAM [HEME] Timed (1) INR,PT,PROTHROMBIN TIME [COAG] Timed 05/03/19 07:30 GLUCOSE POC LAB TO COLLECT [POC] QIDACANDBED 05/03/19 09:00 Insulin NPH/Insulin Reg,Human [HumuLIN 70-30] 40 units SUBCUT DAILY 05/03/19 11:30 GLUCOSE POC LAB TO COLLECT [POC] QIDACANDBED 05/03/19 16:30 GLUCOSE POC LAB TO COLLECT [POC] QIDACANDBED 05/03/19 21:00 GLUCOSE POC LAB TO COLLECT [POC] QIDACANDBED 05/04/19 07:30 GLUCOSE POC LAB TO COLLECT [POC] QIDACANDBED 05/04/19 11:30 GLUCOSE POC LAB TO COLLECT [POC] QIDACANDBED 05/04/19 16:30 GLUCOSE POC LAB TO COLLECT [POC] QIDACANDBED 05/04/19 21:00 GLUCOSE POC LAB TO COLLECT [POC] QIDACANDBED 05/05/19 07:30 GLUCOSE POC LAB TO COLLECT [POC] QIDACANDBED 05/05/19 11:30 GLUCOSE POC LAB TO COLLECT [POC] QIDACANDBED 05/05/19 16:30 GLUCOSE POC LAB TO COLLECT [POC] QIDACANDBED 05/05/19 21:00 GLUCOSE POC LAB TO COLLECT [POC] QIDACANDBED 05/06/19 07:30 GLUCOSE POC LAB TO COLLECT [POC] QIDACANDBED - Plan Plan:: ASSESSMENT AND PLAN - Cervical spine injury with contusion - MRI showed 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 No evidence for cervical spine fracture. He remains weak, especially in the left arm but he is doing better today. Still not strong enough to stand on his own. -Continue dexamethasone -Physical therapy -Increase activity as tolerated -Continue neck brace when up in chair or about -Warfarin will remain on hold with recent trauma Fall with nasal fracture - no ongoing bleeding and pain is well-controlled. -Pain control Insulin-dependent type 2 diabetes mellitus - sugars are starting to rise with the use of steroids but remained acceptable. -Increase dose of NPH with breakfast and supper -Sliding-scale insulin Chronic ischemic heart disease - stable with no active symptoms. Stage III chronic kidney disease - kidney function stable at this time. Maintenance issues - - DVT prophylaxis - warfarin and mechanical - GI prophylaxis - not indicated - Nutrition - consistent carbohydrate Disposition - I would anticipate discharge home with home care after the hospital stay. Patient is adamant that he will not go to a [place] [facility] facility for subacute rehabilitation. Wilberto Teixeira M.D.
[2019-05-02] MEDS: Magnesium Hydroxide 400 MG/5 ML Susp 30 ML Cup PO PRN (16:05)
[2019-05-02] MEDS: oxyCODONE 5 MG Tab PO PRN ×2 (16:05→21:36)
[2019-05-02] MEDS: Acetaminophen 325 MG Tab PO PRN ×2 (16:06→21:34)
[2019-05-02] MEDS ORDERED: Insulin NPH/Insulin Regular,Human 70-30 100 Units/ML 10 ML Vial SUBCUT SCH (21:00)
[2019-05-02] MEDS: Potassium Chloride 10 MEQ Cap.ER PO SCH (21:10)
[2019-05-02] MEDS: atorvaSTATin 20 MG Tab PO SCH (21:10)
[2019-05-03] MEDS: metFORMIN 500 MG Tab PO SCH (08:17)
[2019-05-03] MEDS: Dexamethasone 4 MG Tab PO SCH ×2 (08:18→20:03)
[2019-05-03] MEDS: Allopurinol 300 MG Tab PO SCH (08:27)
[2019-05-03] MEDS: Metoprolol Succinate 50 MG Tab.ER PO SCH (08:28)
[2019-05-03] MEDS ORDERED: Insulin NPH/Insulin Regular,Human 70-30 100 Units/ML 10 ML Vial SUBCUT SCH (09:00)
[2019-05-03] MEDS: Magnesium Hydroxide 400 MG/5 ML Susp 30 ML Cup PO PRN (09:59)
--- NOTE | 2019-05-03 10:53 | PCM.PN ---
- General Info Date of Service: 05/03/19 Subjective Update: No acute events overnight. Blood sugars mildly elevated. No complaints of nausea or shortness of breath. No neck pain. Strength is a little better again today but he does continue to require the assist of 2 people. Left hand grasp is stronger but not normal. Right hand is nearly back to normal. Functional Status: Reports: Pain Controlled, Tolerating Diet - Review of Systems General: Reports: Weakness Musculoskeletal: Denies: Neck Pain - Patient Data Vitals - Most Recent: Last Vital Signs Temp 36.9 C 05/03/19 04:00 Pulse 79 05/03/19 08:28 Resp 18 05/03/19 04:00 BP 131/64 05/03/19 08:28 Pulse Ox 96 05/03/19 04:00 Weight - Most Recent: 101.5 kg I&O - Last 24 Hours: Intake & Output 05/02/19 05/03/19 05/03/19 22:59 06:59 14:59 Intake Total 1700 Output Total 1000 200 Balance 700 -200 Lab Results Last 24 Hours: Laboratory Results - last 24 hr 05/03/19 05/03/19 05/03/19 Range/Units 04:00 04:00 04:00 WBC 15.3 H (4.5-11.0) K/uL RBC 3.77 L (4.30-5.90) M/uL Hgb 10.6 L (12.0-15.0) g/dL Hct 34.4 L (40.0-54.0) % MCV 91 (80-98) fL MCH 28 (27-31) pg MCHC 31 L (32-36) % Plt Count 205 (150-400) K/uL PT 14.7 H (9.5-12.0) sec INR 1.39 H (0.80-1.20) Sodium 134 L (140-148) mmol/L Potassium 4.5 (3.6-5.2) mmol/L Chloride 99 L (100-108) mmol/L Carbon Dioxide 27 (21-32) mmol/L Anion Gap 12.5 (5.0-14.0) mmol/L BUN 55 H (7-18) mg/dL Creatinine 1.4 H (0.8-1.3) mg/dL Est Cr Clr Drug Dosing 44.18 mL/min Estimated GFR (MDRD) 49 L (>60) Glucose 244 H (74-106) mg/dL Calcium 8.9 (8.5-10.1) mg/dL Med Orders - Current: Current Medications Acetaminophen (Tylenol) 650 mg PO Q4H PRN PRN Reason: Pain Last Admin: 05/02/19 21:34 Dose: 650 mg Allopurinol (Zyloprim) 300 mg PO DAILY [facility] Last Admin: 05/03/19 08:27 Dose: 300 mg Atorvastatin Calcium (Lipitor) 40 mg PO BEDTIME [facility] Last Admin: 05/02/19 21:10 Dose: 40 mg Dexamethasone (Dexamethasone) 4 mg PO BID [facility] Last Admin: 05/03/19 08:18 Dose: 4 mg Insulin Human Isoph/Insulin Regular (Humulin 70-30) 30 units SUBCUT BEDTIME [facility] Last Admin: 05/02/19 21:10 Dose: 30 units Insulin Human Isoph/Insulin Regular (Humulin 70-30) 40 units SUBCUT DAILY [facility] Last Admin: 05/03/19 08:22 Dose: 40 unit Insulin Human Lispro (Humalog) 0 unit SUBCUT ASDIRECTED PRN; Protocol PRN Reason: BLOOD SUGARS Last Admin: 05/02/19 17:47 Dose: 3 unit Magnesium Hydroxide (Milk Of Magnesia) 30 ml PO BID PRN PRN Reason: Constipation Last Admin: 05/03/19 09:59 Dose: 30 ml Metformin HCl (Glucophage) 1,000 mg PO DAILY@0800 [facility] Last Admin: 05/03/19 08:17 Dose: 1,000 mg Metoprolol Succinate (Toprol Xl) 100 mg PO DAILY [facility] Last Admin: 05/03/19 08:28 Dose: 100 mg Oxycodone HCl (Oxycodone) 5 mg PO Q4H PRN PRN Reason: Pain Last Admin: 05/02/19 21:36 Dose: 5 mg Potassium Chloride (Potassium Chloride) 10 meq PO BEDTIME [facility] Last Admin: 05/02/19 21:10 Dose: 10 meq Discontinued Medications Hydrocodone Bitart/Acetaminophen ([place] 325-10 Mg) 1 tab PO Q6H PRN PRN Reason: Pain Last Admin: 04/30/19 05:39 Dose: 1 tab Hydromorphone HCl (Dilaudid) 0.5 mg IVPUSH ONETIME ONE Stop: 04/29/19 20:13 Last Admin: 04/29/19 20:15 Dose: 0.5 mg Hydromorphone HCl (Dilaudid) 0.5 mg IVPUSH ONETIME ONE Stop: 04/29/19 22:24 Last Admin: 04/29/19 22:34 Dose: 0.5 mg Ceftriaxone Sodium 1 gm/ (Sodium Chloride) 50 mls @ 100 mls/hr IV ONETIME ONE Stop: 04/30/19 00:11 Last Admin: 04/30/19 00:13 Dose: 100 mls/hr Insulin Human Isoph/Insulin Regular (Humulin 70-30) 40 units SUBCUT BEDTIME [facility] Insulin Human Isoph/Insulin Regular (Humulin 70-30) 60 units SUBCUT DAILY [facility] Last Admin: 04/30/19 09:19 Dose: 60 units Insulin Human Isoph/Insulin Regular (Humulin 70-30) 20 units SUBCUT BEDTIME [facility] Last Admin: 05/01/19 20:59 Dose: 20 units Insulin Human Isoph/Insulin Regular (Humulin 70-30) 30 units SUBCUT DAILY [facility] Last Admin: 05/02/19 09:03 Dose: 30 units Lidocaine HCl (Xylocaine 2% Jelly) 10 ml MUCMEM ONETIME STA Stop: 04/30/19 03:36 Last Admin: 04/30/19 03:54 Dose: 10 ml Potassium Chloride (Klor-Con M20) 40 meq PO ONETIME ONE Stop: 04/30/19 12:01 Last Admin: 04/30/19 13:18 Dose: 40 meq Potassium Chloride (Klor-Con M20) 40 meq PO ONETIME ONE Stop: 05/01/19 09:01 Last Admin: 05/01/19 10:22 Dose: 40 meq Tamsulosin HCl (Flomax) 0.4 mg PO ONETIME ONE Stop: 05/02/19 10:16 Last Admin: 05/02/19 11:28 Dose: 0.4 mg Tramadol HCl (Ultram) 50 mg PO Q6H PRN PRN Reason: pain Last Admin: 04/30/19 03:53 Dose: 50 mg - Exam Quality Assessment: No: Supplemental Oxygen General: Alert, Oriented, Cooperative, No Acute Distress HEENT: Other (bilateral eye ecchymoses ) Neck: Supple Lungs: Normal Respiratory Effort Cardiovascular: Regular Rate, Regular Rhythm GI/Abdominal Exam: Soft, No Distention Extremities: No Pedal Edema Psy/Mental Status: Alert, Normal Affect - Problem List Review Problem List Initiated/Reviewed/Updated: Yes - My Orders Last 24 Hours: My Active Orders 05/02/19 14:00 DC Rubi Catheter [Urinary Catheter Removal] [RC] Per Unit Routine 05/02/19 20:12 Sequential Compression Device [OM.PC] Routine 05/02/19 21:00 Insulin NPH/Insulin Reg,Human [HumuLIN 70-30] 30 units SUBCUT BEDTIME 05/03/19 09:00 Insulin NPH/Insulin Reg,Human [HumuLIN 70-30] 40 units SUBCUT DAILY 05/03/19 11:30 GLUCOSE POC LAB TO COLLECT [POC] QIDACANDBED 05/03/19 16:30 GLUCOSE POC LAB TO COLLECT [POC] QIDACANDBED 05/03/19 21:00 GLUCOSE POC LAB TO COLLECT [POC] QIDACANDBED Insulin NPH/Insulin Reg,Human [HumuLIN 70-30] 40 units SUBCUT BEDTIME 05/04/19 07:30 GLUCOSE POC LAB TO COLLECT [POC] QIDACANDBED 05/04/19 09:00 Insulin NPH/Insulin Reg,Human [HumuLIN 70-30] 50 units SUBCUT DAILY 05/04/19 11:30 GLUCOSE POC LAB TO COLLECT [POC] QIDACANDBED 05/04/19 16:30 GLUCOSE POC LAB TO COLLECT [POC] QIDACANDBED 05/04/19 21:00 GLUCOSE POC LAB TO COLLECT [POC] QIDACANDBED 05/05/19 07:30 GLUCOSE POC LAB TO COLLECT [POC] QIDACANDBED 05/05/19 11:30 GLUCOSE POC LAB TO COLLECT [POC] QIDACANDBED 05/05/19 16:30 GLUCOSE POC LAB TO COLLECT [POC] QIDACANDBED 05/05/19 21:00 GLUCOSE POC LAB TO COLLECT [POC] QIDACANDBED 05/06/19 07:30 GLUCOSE POC LAB TO COLLECT [POC] QIDACANDBED - Plan Plan:: ASSESSMENT AND PLAN - Cervical spine injury with contusion - MRI showed 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 No evidence for cervical spine fracture. Strength is slowly improving but he continues to require the assist of 2 and his quite unsteady when he is on his feet. -Continue dexamethasone -Physical therapy -Increase activity as tolerated -Continue neck brace when up in chair or about -Warfarin will remain on hold with recent trauma Fall with nasal fracture - no ongoing bleeding and pain is well-controlled. -Pain control Insulin-dependent type 2 diabetes mellitus - sugars are mildly elevated since the steroids were initiated. -Increase dose of NPH again today with breakfast and supper -Sliding-scale insulin Chronic ischemic heart disease - stable with no active symptoms. Stage III chronic kidney disease - kidney function stable at this time. Maintenance issues - - DVT prophylaxis - mechanical - GI prophylaxis - not indicated - Nutrition - consistent carbohydrate Disposition - I would anticipate discharge home with home care after the hospital stay. Patient is adamant that he will not go to a [facility] facility for subacute rehabilitation. Wilberto Teixeira M.D.
[2019-05-03] MEDS: Insulin Lispro 100 Unit/ML 3 ML KwikPen SUBCUT PRN ×2 (12:02→17:21)
[2019-05-03] MEDS: atorvaSTATin 20 MG Tab PO SCH (20:02)
[2019-05-03] MEDS: Potassium Chloride 10 MEQ Cap.ER PO SCH (20:03)
[2019-05-03] MEDS: oxyCODONE 5 MG Tab PO PRN (20:13)
[2019-05-03] MEDS: Insulin NPH/Insulin Regular,Human 70-30 100 Units/ML 10 ML Vial SUBCUT SCH (21:21)
[2019-05-04] MEDS: Dexamethasone 4 MG Tab PO SCH ×2 (08:16→20:04)
[2019-05-04] MEDS: Metoprolol Succinate 50 MG Tab.ER PO SCH (08:16)
[2019-05-04] MEDS: metFORMIN 500 MG Tab PO SCH (08:16)
[2019-05-04] MEDS: Allopurinol 300 MG Tab PO SCH (08:17)
[2019-05-04] MEDS: Insulin Lispro 100 Unit/ML 3 ML KwikPen SUBCUT PRN ×3 (08:38→17:06)
[2019-05-04] MEDS ORDERED: Insulin NPH/Insulin Regular,Human 70-30 100 Units/ML 10 ML Vial SUBCUT SCH (09:00)
--- NOTE | 2019-05-04 12:01 | PCM.PN ---
- General Info Date of Service: 05/04/19 Subjective Update: Patient was a little confused last night and thought the hospital was on fire. He is alert and oriented and back to baseline this morning. Left hand is a little stronger but not quite back to baseline. Leg strength is good but he still unable to bear weight on his own. Still using serous study to get around. Blood sugars have been rising with steroids. No complaints of neck pain. No fevers. No paresthesias. Functional Status: Reports: Pain Controlled, Tolerating Diet - Review of Systems General: Reports: Weakness Musculoskeletal: Denies: Neck Pain - Patient Data Vitals - Most Recent: Last Vital Signs Temp 36.2 C 05/04/19 11:12 Pulse 79 05/04/19 11:12 Resp 20 05/04/19 11:12 BP 120/68 05/04/19 11:12 Pulse Ox 96 05/04/19 11:12 Weight - Most Recent: 101.5 kg I&O - Last 24 Hours: Intake & Output 05/03/19 05/04/19 05/04/19 22:59 06:59 14:59 Intake Total 790 Output Total 550 625 Balance 240 -625 Med Orders - Current: Current Medications Acetaminophen (Tylenol) 650 mg PO Q4H PRN PRN Reason: Pain Last Admin: 05/02/19 21:34 Dose: 650 mg Allopurinol (Zyloprim) 300 mg PO DAILY [facility] Last Admin: 05/04/19 08:17 Dose: 300 mg Atorvastatin Calcium (Lipitor) 40 mg PO BEDTIME [facility] Last Admin: 05/03/19 20:02 Dose: 40 mg Dexamethasone (Dexamethasone) 4 mg PO BID [facility] Last Admin: 05/04/19 08:16 Dose: 4 mg Insulin Human Isoph/Insulin Regular (Humulin 70-30) 40 units SUBCUT BEDTIME [facility] Last Admin: 05/03/19 21:21 Dose: 40 units Insulin Human Isoph/Insulin Regular (Humulin 70-30) 60 units SUBCUT DAILY [facility] Insulin Human Lispro (Humalog) 0 unit SUBCUT ASDIRECTED PRN; Protocol PRN Reason: BLOOD SUGARS Last Admin: 05/04/19 08:38 Dose: 3 unit Magnesium Hydroxide (Milk Of Magnesia) 30 ml PO BID PRN PRN Reason: Constipation Last Admin: 05/03/19 09:59 Dose: 30 ml Metformin HCl (Glucophage) 1,000 mg PO DAILY@0800 [facility] Last Admin: 05/04/19 08:16 Dose: 1,000 mg Metoprolol Succinate (Toprol Xl) 100 mg PO DAILY [facility] Last Admin: 05/04/19 08:16 Dose: 100 mg Oxycodone HCl (Oxycodone) 5 mg PO Q4H PRN PRN Reason: Pain Last Admin: 05/03/19 20:13 Dose: 5 mg Potassium Chloride (Potassium Chloride) 10 meq PO BEDTIME [facility] Last Admin: 05/03/19 20:03 Dose: 10 meq Warfarin Sodium (Coumadin) 5 mg PO DAILY@1300 [facility] Discontinued Medications Hydrocodone Bitart/Acetaminophen ([place] 325-10 Mg) 1 tab PO Q6H PRN PRN Reason: Pain Last Admin: 04/30/19 05:39 Dose: 1 tab Hydromorphone HCl (Dilaudid) 0.5 mg IVPUSH ONETIME ONE Stop: 04/29/19 20:13 Last Admin: 04/29/19 20:15 Dose: 0.5 mg Hydromorphone HCl (Dilaudid) 0.5 mg IVPUSH ONETIME ONE Stop: 04/29/19 22:24 Last Admin: 04/29/19 22:34 Dose: 0.5 mg Ceftriaxone Sodium 1 gm/ (Sodium Chloride) 50 mls @ 100 mls/hr IV ONETIME ONE Stop: 04/30/19 00:11 Last Admin: 04/30/19 00:13 Dose: 100 mls/hr Insulin Human Isoph/Insulin Regular (Humulin 70-30) 40 units SUBCUT BEDTIME [facility] Insulin Human Isoph/Insulin Regular (Humulin 70-30) 60 units SUBCUT DAILY [facility] Last Admin: 04/30/19 09:19 Dose: 60 units Insulin Human Isoph/Insulin Regular (Humulin 70-30) 20 units SUBCUT BEDTIME [facility] Last Admin: 05/01/19 20:59 Dose: 20 units Insulin Human Isoph/Insulin Regular (Humulin 70-30) 30 units SUBCUT DAILY [facility] Last Admin: 05/02/19 09:03 Dose: 30 units Insulin Human Isoph/Insulin Regular (Humulin 70-30) 30 units SUBCUT BEDTIME [facility] Last Admin: 05/02/19 21:10 Dose: 30 units Insulin Human Isoph/Insulin Regular (Humulin 70-30) 40 units SUBCUT DAILY [facility] Last Admin: 05/03/19 08:22 Dose: 40 unit Insulin Human Isoph/Insulin Regular (Humulin 70-30) 50 units SUBCUT DAILY [facility] Last Admin: 05/04/19 08:33 Dose: 50 units Lidocaine HCl (Xylocaine 2% Jelly) 10 ml MUCMEM ONETIME STA Stop: 04/30/19 03:36 Last Admin: 04/30/19 03:54 Dose: 10 ml Potassium Chloride (Klor-Con M20) 40 meq PO ONETIME ONE Stop: 04/30/19 12:01 Last Admin: 04/30/19 13:18 Dose: 40 meq Potassium Chloride (Klor-Con M20) 40 meq PO ONETIME ONE Stop: 05/01/19 09:01 Last Admin: 05/01/19 10:22 Dose: 40 meq Tamsulosin HCl (Flomax) 0.4 mg PO ONETIME ONE Stop: 05/02/19 10:16 Last Admin: 05/02/19 11:28 Dose: 0.4 mg Tramadol HCl (Ultram) 50 mg PO Q6H PRN PRN Reason: pain Last Admin: 04/30/19 03:53 Dose: 50 mg - Exam Quality Assessment: No: Supplemental Oxygen General: Alert, Oriented, Cooperative, No Acute Distress HEENT: Other (bilateral orbital ecchymoses ) Lungs: Normal Respiratory Effort GI/Abdominal Exam: Soft, No Distention Extremities: No Pedal Edema Psy/Mental Status: Alert, Normal Affect - Problem List Review Problem List Initiated/Reviewed/Updated: Yes - My Orders Last 24 Hours: My Active Orders 05/03/19 14:19 Consult to Occupational Therapy [OT Evaluation and Treatment] [CONS] Routine 05/03/19 21:00 Insulin NPH/Insulin Reg,Human [HumuLIN 70-30] 40 units SUBCUT BEDTIME 05/04/19 13:00 Warfarin [Coumadin] 5 mg PO DAILY@1300 05/04/19 16:30 GLUCOSE POC LAB TO COLLECT [POC] QIDACANDBED 05/04/19 21:00 GLUCOSE POC LAB TO COLLECT [POC] QIDACANDBED Melatonin 9 mg PO BEDTIME 05/05/19 05:00 BASIC METABOLIC PANEL,BMP [CHEM] Timed CBC W/O DIFF,HEMOGRAM [HEME] Timed (1) INR,PT,PROTHROMBIN TIME [COAG] Timed 05/05/19 07:30 GLUCOSE POC LAB TO COLLECT [POC] QIDACANDBED 05/05/19 09:00 Insulin NPH/Insulin Reg,Human [HumuLIN 70-30] 60 units SUBCUT DAILY 05/05/19 11:30 GLUCOSE POC LAB TO COLLECT [POC] QIDACANDBED 05/05/19 16:30 GLUCOSE POC LAB TO COLLECT [POC] QIDACANDBED 05/05/19 21:00 GLUCOSE POC LAB TO COLLECT [POC] QIDACANDBED 05/06/19 07:30 GLUCOSE POC LAB TO COLLECT [POC] QIDACANDBED - Plan Plan:: ASSESSMENT AND PLAN - Cervical spine injury with contusion - MRI showed 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 No evidence for cervical spine fracture. Strength is improving but very slowly. He continues to require the assist of 2 and his quite unsteady when he is on his feet. -Continue dexamethasone twice daily -Physical therapy -Increase activity as tolerated -Continue neck brace when up in chair or about -Warfarin will be restarted today Fall with nasal fracture - no ongoing bleeding and pain is well-controlled. -Pain control Insulin-dependent type 2 diabetes mellitus - sugars have trended up over the past couple of days. -Increase dose of NPH to usual dosing of 60/40 -Sliding-scale insulin Chronic ischemic heart disease - stable with no active symptoms. Stage III chronic kidney disease - kidney function stable at this time. Maintenance issues - - DVT prophylaxis - mechanical - GI prophylaxis - not indicated - Nutrition - consistent carbohydrate Disposition - I would anticipate discharge to a [facility] facility. Patient would like to go home but is unable to bear any weight and would benefit from subacute rehabilitation. Wilberto Teixeira M.D.
[2019-05-04] MEDS: Warfarin 5 MG Tab PO SCH (13:23)
[2019-05-04] MEDS: Acetaminophen 325 MG Tab PO PRN (15:58)
[2019-05-04] MEDS: Magnesium Hydroxide 400 MG/5 ML Susp 30 ML Cup PO PRN (18:01)
[2019-05-04] MEDS: atorvaSTATin 20 MG Tab PO SCH (20:03)
[2019-05-04] MEDS: Potassium Chloride 10 MEQ Cap.ER PO SCH (20:04)
[2019-05-04] MEDS: Melatonin 3 MG Tab PO SCH (20:05)
[2019-05-04] MEDS: Insulin NPH/Insulin Regular,Human 70-30 100 Units/ML 10 ML Vial SUBCUT SCH (22:22)
[2019-05-05] MEDS: Metoprolol Succinate 50 MG Tab.ER PO SCH (08:34)
[2019-05-05] MEDS: metFORMIN 500 MG Tab PO SCH (08:38)
[2019-05-05] MEDS: Allopurinol 300 MG Tab PO SCH (08:38)
[2019-05-05] MEDS: Dexamethasone 4 MG Tab PO SCH (08:38)
[2019-05-05] MEDS: Insulin Lispro 100 Unit/ML 3 ML KwikPen SUBCUT PRN ×4 (08:46→21:57)
[2019-05-05] MEDS: Insulin NPH/Insulin Regular,Human 70-30 100 Units/ML 10 ML Vial SUBCUT SCH ×2 (08:49→21:55)
[2019-05-05] MEDS: Warfarin 5 MG Tab PO SCH (14:24)
--- NOTE | 2019-05-05 15:03 | PCM.PN ---
- General Info Date of Service: 05/05/19 Subjective Update: Mr. Bhatt has continued to show improvement in his left arm strength as well as lower extremity strength. Glucose levels of been elevated but he has remained on oral Decadron. Each day seems to regain strength and mobility. Currently awaiting discharge plans for acute rehabilitation stay at retirement. Functional Status: Reports: Tolerating Diet - Review of Systems General: Reports: Weakness. Denies: Fever, Chills Pulmonary: Reports: No Symptoms Cardiovascular: Reports: No Symptoms Gastrointestinal: Reports: No Symptoms Neurological: Reports: Difficulty Walking, Weakness - Patient Data Vitals - Most Recent: Last Vital Signs Temp 97.9 F 05/05/19 14:41 Pulse 64 05/05/19 14:41 Resp 18 05/05/19 14:41 BP 106/71 05/05/19 14:41 Pulse Ox 96 05/05/19 14:41 Weight - Most Recent: 223 lb 12.307 oz I&O - Last 24 Hours: Intake & Output 05/04/19 05/05/19 05/05/19 22:59 06:59 14:59 Intake Total 900 120 Output Total 550 500 150 Balance -550 400 -30 Lab Results Last 24 Hours: Laboratory Results - last 24 hr 05/05/19 05/05/19 05/05/19 Range/Units 06:01 06:01 06:01 WBC 20.3 H (4.5-11.0) K/uL RBC 4.00 L (4.30-5.90) M/uL Hgb 11.7 L (12.0-15.0) g/dL Hct 36.8 L (40.0-54.0) % MCV 92 (80-98) fL MCH 29 (27-31) pg MCHC 32 (32-36) % Plt Count 287 (150-400) K/uL PT 13.3 H (9.5-12.0) sec INR 1.25 H (0.80-1.20) Sodium 135 L (140-148) mmol/L Potassium 5.2 (3.6-5.2) mmol/L Chloride 101 (100-108) mmol/L Carbon Dioxide 25 (21-32) mmol/L Anion Gap 14.2 H (5.0-14.0) mmol/L BUN 67 H (7-18) mg/dL Creatinine 1.5 H (0.8-1.3) mg/dL Est Cr Clr Drug Dosing 41.23 mL/min Estimated GFR (MDRD) 45 L (>60) Glucose 237 H (74-106) mg/dL Calcium 8.9 (8.5-10.1) mg/dL Med Orders - Current: Current Medications Acetaminophen (Tylenol) 650 mg PO Q4H PRN PRN Reason: Pain Last Admin: 05/04/19 15:58 Dose: 650 mg Allopurinol (Zyloprim) 300 mg PO DAILY [facility] Last Admin: 05/05/19 08:38 Dose: 300 mg Atorvastatin Calcium (Lipitor) 40 mg PO BEDTIME [facility] Last Admin: 05/04/19 20:03 Dose: 40 mg Insulin Human Isoph/Insulin Regular (Humulin 70-30) 40 units SUBCUT BEDTIME [facility] Last Admin: 05/04/19 22:22 Dose: 40 units Insulin Human Isoph/Insulin Regular (Humulin 70-30) 60 units SUBCUT DAILY [facility] Last Admin: 05/05/19 08:49 Dose: 60 units Insulin Human Lispro (Humalog) 0 unit SUBCUT ASDIRECTED PRN; Protocol PRN Reason: BLOOD SUGARS Last Admin: 05/05/19 12:50 Dose: 2 unit Magnesium Hydroxide (Milk Of Magnesia) 30 ml PO BID PRN PRN Reason: Constipation Last Admin: 05/04/19 18:01 Dose: 30 ml Melatonin (Melatonin) 9 mg PO BEDTIME [facility] Last Admin: 05/04/19 20:05 Dose: 9 mg Metformin HCl (Glucophage) 1,000 mg PO DAILY@0800 [facility] Last Admin: 05/05/19 08:38 Dose: 1,000 mg Metoprolol Succinate (Toprol Xl) 100 mg PO DAILY [facility] Last Admin: 05/05/19 08:34 Dose: 100 mg Oxycodone HCl (Oxycodone) 5 mg PO Q4H PRN PRN Reason: Pain Last Admin: 05/03/19 20:13 Dose: 5 mg Potassium Chloride (Potassium Chloride) 10 meq PO BEDTIME [facility] Last Admin: 05/04/19 20:04 Dose: 10 meq Warfarin Sodium (Coumadin) 5 mg PO DAILY@1300 [facility] Last Admin: 05/05/19 14:24 Dose: 5 mg Discontinued Medications Hydrocodone Bitart/Acetaminophen ([place] 325-10 Mg) 1 tab PO Q6H PRN PRN Reason: Pain Last Admin: 04/30/19 05:39 Dose: 1 tab Dexamethasone (Dexamethasone) 4 mg PO BID [facility] Last Admin: 05/05/19 08:38 Dose: 4 mg Hydromorphone HCl (Dilaudid) 0.5 mg IVPUSH ONETIME ONE Stop: 04/29/19 20:13 Last Admin: 04/29/19 20:15 Dose: 0.5 mg Hydromorphone HCl (Dilaudid) 0.5 mg IVPUSH ONETIME ONE Stop: 04/29/19 22:24 Last Admin: 04/29/19 22:34 Dose: 0.5 mg Ceftriaxone Sodium 1 gm/ (Sodium Chloride) 50 mls @ 100 mls/hr IV ONETIME ONE Stop: 04/30/19 00:11 Last Admin: 04/30/19 00:13 Dose: 100 mls/hr Insulin Human Isoph/Insulin Regular (Humulin 70-30) 40 units SUBCUT BEDTIME [facility] Insulin Human Isoph/Insulin Regular (Humulin 70-30) 60 units SUBCUT DAILY [facility] Last Admin: 04/30/19 09:19 Dose: 60 units Insulin Human Isoph/Insulin Regular (Humulin 70-30) 20 units SUBCUT BEDTIME [facility] Last Admin: 05/01/19 20:59 Dose: 20 units Insulin Human Isoph/Insulin Regular (Humulin 70-30) 30 units SUBCUT DAILY [facility] Last Admin: 05/02/19 09:03 Dose: 30 units Insulin Human Isoph/Insulin Regular (Humulin 70-30) 30 units SUBCUT BEDTIME [facility] Last Admin: 05/02/19 21:10 Dose: 30 units Insulin Human Isoph/Insulin Regular (Humulin 70-30) 40 units SUBCUT DAILY [facility] Last Admin: 05/03/19 08:22 Dose: 40 unit Insulin Human Isoph/Insulin Regular (Humulin 70-30) 50 units SUBCUT DAILY [facility] Last Admin: 05/04/19 08:33 Dose: 50 units Lidocaine HCl (Xylocaine 2% Jelly) 10 ml MUCMEM ONETIME STA Stop: 04/30/19 03:36 Last Admin: 04/30/19 03:54 Dose: 10 ml Potassium Chloride (Klor-Con M20) 40 meq PO ONETIME ONE Stop: 04/30/19 12:01 Last Admin: 04/30/19 13:18 Dose: 40 meq Potassium Chloride (Klor-Con M20) 40 meq PO ONETIME ONE Stop: 05/01/19 09:01 Last Admin: 05/01/19 10:22 Dose: 40 meq Tamsulosin HCl (Flomax) 0.4 mg PO ONETIME ONE Stop: 05/02/19 10:16 Last Admin: 05/02/19 11:28 Dose: 0.4 mg Tramadol HCl (Ultram) 50 mg PO Q6H PRN PRN Reason: pain Last Admin: 04/30/19 03:53 Dose: 50 mg - Exam Quality Assessment: DVT Prophylaxis General: Alert, Oriented, Cooperative, Mild Distress Lungs: Clear to Auscultation, Normal Respiratory Effort Cardiovascular: Regular Rate, Regular Rhythm, No Murmurs GI/Abdominal Exam: Soft, Non-Tender, No Organomegaly, No Distention Neurological: Other (Weakness both legs and left upper extremity) - Problem List Review Problem List Initiated/Reviewed/Updated: Yes - My Orders Last 24 Hours: My Active Orders 05/06/19 05:00 BASIC METABOLIC PANEL,BMP [CHEM] Timed CBC WITH AUTO DIFF [HEME] Timed INR,PT,PROTHROMBIN TIME [COAG] Timed - Plan Plan:: ASSESSMENT AND PLAN - Cervical spine injury with contusion - MRI showed 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 No evidence for cervical spine fracture. Strength is improving but very slowly. He continues to require the assist of 2 and his quite unsteady when he is on his feet. -Discontinue dexamethasone twice daily -Physical therapy -Increase activity as tolerated -Continue neck brace when up in chair or about -Warfarin Fall with nasal fracture - no ongoing bleeding and pain is well-controlled. -Pain control Insulin-dependent type 2 diabetes mellitus - sugars have trended up over the past couple of days. Expect that glucose post levels will improve off of Decadron -Increase dose of NPH to usual dosing of 60/40 -Sliding-scale insulin Chronic ischemic heart disease - stable with no active symptoms. Stage III chronic kidney disease - kidney function stable at this time. Maintenance issues - - DVT prophylaxis - mechanical - GI prophylaxis - not indicated - Nutrition - consistent carbohydrate Disposition - I would anticipate discharge to a senior care facility. Patient would like to go home but is unable to bear any weight and would benefit from subacute rehabilitation.
[2019-05-05] MEDS ORDERED: diphenhydrAMINE 50 MG/ML SDV IVPUSH PRN (17:47)
[2019-05-05] MEDS: atorvaSTATin 20 MG Tab PO SCH (21:54)
[2019-05-05] MEDS: Melatonin 3 MG Tab PO SCH (21:54)
[2019-05-05] MEDS: Potassium Chloride 10 MEQ Cap.ER PO SCH (21:54)
[2019-05-06] MEDS: oxyCODONE 5 MG Tab PO PRN (07:21)
[2019-05-06] MEDS: metFORMIN 500 MG Tab PO SCH (07:21)
[2019-05-06 07:52] VITALS: BP 107/76; PULSE 89
[2019-05-06] MEDS: Insulin NPH/Insulin Regular,Human 70-30 100 Units/ML 10 ML Vial SUBCUT SCH (09:21)
[2019-05-06] MEDS: Insulin Lispro 100 Unit/ML 3 ML KwikPen SUBCUT PRN (09:21)
[2019-05-06] MEDS: Metoprolol Succinate 50 MG Tab.ER PO SCH (09:25)
[2019-05-06] MEDS: Allopurinol 300 MG Tab PO SCH (09:25)
--- NOTE | 2019-05-06 09:25 | PCM.DCSUM1 ---
Discharge Summary - Hospital Course Brief History: Mr. Bhatt is a 78-year-old gentleman who fell on the evening of admission experiencing facial injuries including a nasal fracture. He also experienced a spinal cord contusion resulting in weakness of his left upper extremity and both lower extremities. - Discharge Data Discharge Date: 05/06/19 Discharge Disposition: DC/Tfer to SNF 03 Condition: Fair - Referral to Home Health Primary Care Physician: PCP None - Discharge Diagnosis/Problem(s) (1) Spinal cord contusion SNOMED Code(s): 756499598 ICD Code: [id number] - Status: Acute Current Visit: Yes (2) Systolic CHF with reduced left ventricular function, NYHA class 2 SNOMED Code(s): 386330399, 822964802, 209162448 ICD Code: I50.20 - UNSPECIFIED SYSTOLIC (CONGESTIVE) HEART FAILURE Status: Acute Current Visit: No (3) Diabetes mellitus SNOMED Code(s): 35947575 ICD Code: E11.9 - TYPE 2 DIABETES MELLITUS WITHOUT COMPLICATIONS Status: Chronic Priority: Low Current Visit: No Qualifiers: Diabetes mellitus type: type 2 Diabetes mellitus detention insulin use: with detention use Diabetes mellitus complication status: with kidney complications Diabetes mellitus complication detail: with chronic kidney disease Chronic kidney disease stage: stage 3 (moderate) Qualified Code(s): E11.22 - Type 2 diabetes mellitus with diabetic chronic kidney disease; N18.3 - Chronic kidney disease, stage 3 (moderate); Z79.4 - penitentiary (current) use of insulin (4) COPD (chronic obstructive pulmonary disease) SNOMED Code(s): 11310987 ICD Code: J44.9 - CHRONIC OBSTRUCTIVE PULMONARY DISEASE, UNSPECIFIED Status : Chronic Current Visit: No - Patient Summary/Data Consults: Consultations 04/30/19 01:25 Consult to Physical Therapy [PT Evaluation and Treatment] [CONS] Routine Please Evaluate and Treat. PT Reason for Consult: Strengthening Pending Discharge: No This query below is only for informational purposes and is not editable. Admission Diagnosis/Problem: Spinal cord injury 05/03/19 14:19 Consult to Occupational Therapy [OT Evaluation and Treatment] [CONS] Routine Please Evaluate and Treat. OT Reason for Consult: Strengthening Pending Discharge: Yes Discharge Disposition: Alf Facility Special Instructions: pending SNF admission 05/05/19 This query below is only for informational purposes and is not editable. Admission Diagnosis/Problem: Spinal cord injury Hospital Course: Mr. Bhatt is a 78-year-old gentleman who fell on the evening admission experiencing facial injuries as well as spinal cord contusion resulting in weakness of both lower extremities and the left upper extremity. He slipped and fell on the ice as he was approaching his car striking his head on the side of the car and then on the ground. He noted immediate weakness in both legs as well as his left upper extremity. On evaluation in the emergency department facial x-rays showed evidence of a nasal fracture as well as some hemorrhage into sinuses. MRI was obtained of the cervical spine which did show chronic degenerative changes resulting in spinal canal stenosis worse at C5-6 with effacement of the spinal cord. MRI of the brain showed no acute abnormalities. He was admitted to the hospital, given pain medication as needed. He was seen daily by physical therapy. During the course of his hospital stay he did regain strength in his left arm as well as both lower extremities. Prior to discharge she was able to walk short distances in the hallway using a walker. He was treated with oral Decadron through most of the hospital stay, this was discontinued prior to discharge. Glucose levels were monitored and insulin adjusted as needed. Glucose levels were elevated during hospitalization secondary to therapy with Decadron. He requires ongoing physical therapy and occupational therapy and will be discharged to the [facility] until he is able to function adequately at home. Activity will be as tolerated and he will be on a 2 g sodium diabetic diet. He will follow-up with primary care provider within one week. - Patient Instructions Diet: Low Sodium, Diabetic Diet Activity: As Tolerated Other/Special Instructions: Daily PT and OT while at [facility]. - Discharge Plan *PRESCRIPTION DRUG MONITORING PROGRAM REVIEWED*: Not Applicable *COPY OF PRESCRIPTION DRUG MONITORING REPORT IN PATIENT RAYO: Not Applicable Home Medications: Home Meds Allopurinol [Zyloprim] 300 mg PO DAILY 03/25/16 [History] Aspirin 325 mg PO BEDTIME 03/25/16 [History] Furosemide 40 mg PO BIDAC #60 tablet 03/25/16 [Rx] metFORMIN HCl [Metformin HCl] 1,000 mg PO DAILY 03/25/16 [History] Insulin NPH/Insulin Reg,Human [Novolin 70-30] 40 units SQ BEDTIME 04/29/19 [ History] Insulin NPH/Insulin Reg,Human [Novolin 70-30] 60 units SQ DAILY 04/29/19 [ History] Metoprolol Succinate 100 mg PO DAILY 04/29/19 [History] Potassium Chloride 10 meq PO BEDTIME 04/29/19 [History] Potassium Chloride 20 meq PO DAILY 04/29/19 [History] Warfarin [Coumadin] 5 mg PO DAILY 04/29/19 [History] atorvaSTATin [Lipitor] 40 mg PO BEDTIME 04/29/19 [History] Referrals: Fede Sullivan NP [Ordering Only Provider] - 05/13/19 4:00 pm (Please arrive 15 minutes early to register for your appointment.) - Discharge Summary/Plan Comment DC Time >30 min.: No - Patient Data Vitals - Most Recent: Last Vital Signs Temp 98.1 F 05/06/19 07:50 Pulse 89 05/06/19 07:50 Resp 16 05/06/19 07:50 BP 107/76 05/06/19 07:50 Pulse Ox 92 L 05/06/19 07:50 Weight - Most Recent: 223 lb 12.307 oz I&O - Last 24 hours: Intake & Output 05/05/19 05/06/19 05/06/19 22:59 06:59 14:59 Intake Total 780 500 240 Output Total 700 600 Balance 80 -100 240 Lab Results - Last 24 hrs: Laboratory Results - last 24 hr 05/06/19 05/06/19 05/06/19 Range/Units 04:00 04:00 04:00 WBC 21.4 H (4.5-11.0) K/uL RBC 4.01 L (4.30-5.90) M/uL Hgb 11.7 L (12.0-15.0) g/dL Hct 36.7 L (40.0-54.0) % MCV 92 (80-98) fL MCH 29 (27-31) pg MCHC 32 (32-36) % Plt Count 294 (150-400) K/uL Neut % (Auto) 81 H (36-66) % Lymph % (Auto) 11 L (24-44) % [place] % (Auto) 8 H (2-6) % Eos % (Auto) 0 L (2-4) % Baso % (Auto) 0 (0-1) % PT 14.4 H (9.5-12.0) sec INR 1.36 H (0.80-1.20) Sodium 135 L (140-148) mmol/L Potassium 4.9 (3.6-5.2) mmol/L Chloride 100 (100-108) mmol/L Carbon Dioxide 24 (21-32) mmol/L Anion Gap 15.9 H (5.0-14.0) mmol/L BUN 70 H (7-18) mg/dL Creatinine 1.4 H (0.8-1.3) mg/dL Est Cr Clr Drug Dosing 44.18 mL/min Estimated GFR (MDRD) 49 L (>60) Glucose 253 H (74-106) mg/dL Calcium 8.7 (8.5-10.1) mg/dL Med Orders - Current: Current Medications Acetaminophen (Tylenol) 650 mg PO Q4H PRN PRN Reason: Pain Last Admin: 05/04/19 15:58 Dose: 650 mg Allopurinol (Zyloprim) 300 mg PO DAILY [facility] [place] Last Admin: 05/05/19 08:38 Dose: 300 mg Atorvastatin Calcium (Lipitor) 40 mg PO BEDTIME [facility] [place] Last Admin: 05/05/19 21:54 Dose: 40 mg Diphenhydramine HCl (Benadryl) 25 mg IVPUSH Q4H PRN PRN Reason: Itching Insulin Human Isoph/Insulin Regular (Humulin 70-30) 40 units SUBCUT BEDTIME [facility] [place] Last Admin: 05/05/19 21:55 Dose: 40 units Insulin Human Isoph/Insulin Regular (Humulin 70-30) 60 units SUBCUT DAILY [facility] [place] Last Admin: 05/05/19 08:49 Dose: 60 units Insulin Human Lispro (Humalog) 0 unit SUBCUT ASDIRECTED PRN; Protocol PRN Reason: BLOOD SUGARS Last Admin: 05/05/19 21:57 Dose: 4 unit Magnesium Hydroxide (Milk Of Magnesia) 30 ml PO BID PRN PRN Reason: Constipation Last Admin: 05/04/19 18:01 Dose: 30 ml Melatonin (Melatonin) 9 mg PO BEDTIME [facility] [place] Last Admin: 05/05/19 21:54 Dose: 9 mg Metformin HCl (Glucophage) 1,000 mg PO DAILY@0800 [facility] [place] Last Admin: 05/06/19 07:21 Dose: 1,000 mg Metoprolol Succinate (Toprol Xl) 100 mg PO DAILY [facility] [place] Last Admin: 05/05/19 08:34 Dose: 100 mg Oxycodone HCl (Oxycodone) 5 mg PO Q4H PRN PRN Reason: Pain Last Admin: 05/06/19 07:21 Dose: 5 mg Potassium Chloride (Potassium Chloride) 10 meq PO BEDTIME [facility] Last Admin: 05/05/19 21:54 Dose: 10 meq Warfarin Sodium (Coumadin) 5 mg PO DAILY@1300 [facility] [place] Last Admin: 05/05/19 14:24 Dose: 5 mg Discontinued Medications Hydrocodone Bitart/Acetaminophen ([place] 325-10 Mg) 1 tab PO Q6H PRN PRN Reason: Pain Last Admin: 04/30/19 05:39 Dose: 1 tab Dexamethasone (Dexamethasone) 4 mg PO BID [facility] [place] Last Admin: 05/05/19 08:38 Dose: 4 mg Hydromorphone HCl (Dilaudid) 0.5 mg IVPUSH ONETIME ONE Stop: 04/29/19 20:13 Last Admin: 04/29/19 20:15 Dose: 0.5 mg Hydromorphone HCl (Dilaudid) 0.5 mg IVPUSH ONETIME ONE Stop: 04/29/19 22:24 Last Admin: 04/29/19 22:34 Dose: 0.5 mg Ceftriaxone Sodium 1 gm/ (Sodium Chloride) 50 mls @ 100 mls/hr IV ONETIME ONE Stop: 04/30/19 00:11 Last Admin: 04/30/19 00:13 Dose: 100 mls/hr Insulin Human Isoph/Insulin Regular (Humulin 70-30) 40 units SUBCUT BEDTIME [facility] [place] Insulin Human Isoph/Insulin Regular (Humulin 70-30) 60 units SUBCUT DAILY [facility] [place] Last Admin: 04/30/19 09:19 Dose: 60 units Insulin Human Isoph/Insulin Regular (Humulin 70-30) 20 units SUBCUT BEDTIME [facility] [place] Last Admin: 05/01/19 20:59 Dose: 20 units Insulin Human Isoph/Insulin Regular (Humulin 70-30) 30 units SUBCUT DAILY [facility] [place] Last Admin: 05/02/19 09:03 Dose: 30 units Insulin Human Isoph/Insulin Regular (Humulin 70-30) 30 units SUBCUT BEDTIME [facility] [place] Last Admin: 05/02/19 21:10 Dose: 30 units Insulin Human Isoph/Insulin Regular (Humulin 70-30) 40 units SUBCUT DAILY [facility] [place] Last Admin: 05/03/19 08:22 Dose: 40 unit Insulin Human Isoph/Insulin Regular (Humulin 70-30) 50 units SUBCUT DAILY [facility] [place] Last Admin: 05/04/19 08:33 Dose: 50 units Lidocaine HCl (Xylocaine 2% Jelly) 10 ml MUCMEM ONETIME STA Stop: 04/30/19 03:36 Last Admin: 04/30/19 03:54 Dose: 10 ml Potassium Chloride (Klor-Con M20) 40 meq PO ONETIME ONE Stop: 04/30/19 12:01 Last Admin: 04/30/19 13:18 Dose: 40 meq Potassium Chloride (Klor-Con M20) 40 meq PO ONETIME ONE Stop: 05/01/19 09:01 Last Admin: 05/01/19 10:22 Dose: 40 meq Tamsulosin HCl (Flomax) 0.4 mg PO ONETIME ONE Stop: 05/02/19 10:16 Last Admin: 05/02/19 11:28 Dose: 0.4 mg Tramadol HCl (Ultram) 50 mg PO Q6H PRN PRN Reason: pain Last Admin: 04/30/19 03:53 Dose: 50 mg - Exam Quality Assessment: Reports: DVT Prophylaxis General: Reports: Alert, Oriented, Cooperative, Mild Distress Lungs: Reports: Clear to Auscultation, Normal Respiratory Effort, Decreased Breath Sounds Cardiovascular: Reports: Regular Rate, Regular Rhythm, No Murmurs GI/Abdominal Exam: Soft, Non-Tender, No Organomegaly, No Distention Neurological: Reports: Other (Weakness left upper extremity and both lower extremities)
[2019-05-06] MEDS: Warfarin 5 MG Tab PO SCH (12:45)
== END 2019-05-06 13:14 | DRG 52 ==
LOC: JP.ED 19:15 → JP.MS 23:40 → OBSVTOIN 04-30 17:14
PROVIDERS: ADMIT Family Medicine; ATTEND Hospitalist
DX: S14.0XXA Concussion and edema of cervical spinal cord, initial encounter (principal); S14.105A Unspecified injury at C5 level of cervical spinal cord, initial encounter; I13.0 Hypertensive heart and chronic kidney disease with heart failure and stage 1 through stage 4 chronic kidney disease, or unspecified chronic kidney disease; R04.0 Epistaxis; I50.9 Heart failure, unspecified; I50.22 Chronic systolic (congestive) heart failure; E11.9 Type 2 diabetes mellitus without complications; S02.2XXA Fracture of nasal bones, initial encounter for closed fracture; I25.10 Atherosclerotic heart disease of native coronary artery without angina pectoris; E78.5 Hyperlipidemia, unspecified; M10.9 Gout, unspecified; M48.02 Spinal stenosis, cervical region; J44.9 Chronic obstructive pulmonary disease, unspecified; G89.29 Other chronic pain; H91.93 Unspecified hearing loss, bilateral; Z98.49 Cataract extraction status, unspecified eye; N18.3 Chronic kidney disease, stage 3 (moderate); E79.0 Hyperuricemia without signs of inflammatory arthritis and tophaceous disease; E78.00 Pure hypercholesterolemia, unspecified; E11.22 Type 2 diabetes mellitus with diabetic chronic kidney disease; I25.9 Chronic ischemic heart disease, unspecified; Z95.1 Presence of aortocoronary bypass graft; Z79.4 Long term (current) use of insulin; Z79.899 Other long term (current) drug therapy; Z79.01 Long term (current) use of anticoagulants; Z98.41 Cataract extraction status, right eye; Z98.42 Cataract extraction status, left eye; Z88.8 Allergy status to other drugs, medicaments and biological substances; Z79.82 Long term (current) use of aspirin; Z95.5 Presence of coronary angioplasty implant and graft; W01.0XXA Fall on same level from slipping, tripping and stumbling without subsequent striking against object, initial encounter
CPT/HCPCS: 30901; 30905; 36415 ×2; 51702 ×2; 51798 ×2; 70450; 70486; 70551 ×2; 72125; 72141 ×2; 73030; 80053; 81001; 82962 ×2; 85025; 85610; 96365; 96372; 96375; 96376; 97112; 97162; 99285; A9270 ×8; J0696; J1170 ×2; J7050; 80048; 85027; 97110-GP; 97165-GO; 97530-GP; 97535-GP; J1815; J8540

== ENCOUNTER 2019-05-27 12:43 | Inpatient (IN) | payer MEDICARE ==
--- NOTE | 2019-05-27 13:00 | EDM.PDOC ---
ED HPI GENERAL MEDICAL PROBLEM - General Chief Complaint: Cardiovascular Problem Stated Complaint: CHS Time Seen by Provider: 05/27/19 12:55 Source of Information: Reports: Patient History Limitations: Reports: No Limitations - History of Present Illness INITIAL COMMENTS - FREE TEXT/NARRATIVE: pt has increased ankle swelling and is sob. Onset: Gradual, Other (pt has been more sob. ) Duration: Hour(s): Location: Reports: Chest, Lower Extremity, Left, Lower Extremity, Right, Other ( pt has marked peripheral edema. ) Associated Symptoms: Reports: Shortness of Breath - Related Data Allergies Allergy/AdvReac Type Severity Reaction Status Date / Time lisinopril Allergy Other Verified 05/27/19 13:20 Home Meds: Home Meds allopurinoL [Zyloprim] 300 mg PO DAILY 03/25/16 [History] metFORMIN HCl [Metformin HCl] 1,000 mg PO DAILY 03/25/16 [History] Insulin NPH/Insulin Reg,Human [Novolin 70-30] 45 units SQ DAILY 04/29/19 [ History] Potassium Chloride 20 meq PO BID 04/29/19 [History] Warfarin [Coumadin] 5 mg PO DAILY 04/29/19 [History] atorvaSTATin [Lipitor] 40 mg PO BEDTIME 04/29/19 [History] oxyCODONE 5 mg PO Q4H PRN #20 tablet 05/06/19 [Rx] Clopidogrel Bisulfate [Clopidogrel] 75 mg PO DAILY 05/27/19 [History] Furosemide 80 mg PO BIDAC 05/27/19 [History] Ipratropium [Atrovent] 0.5 mg IH Q6HR 05/27/19 [History] Ipratropium/Albuterol Sulfate [Iprat-Albut 0.5-3(2.5) MG/3 ML] 1 vial NEB Q6H PRN 05/27/19 [History] Metoprolol Succinate 25 mg PO DAILY 05/27/19 [History] levoFLOXacin [Levofloxacin] 250 mg PO DAILY 05/27/19 [History] metOLazone [Metolazone] 2.5 mg PO WEEKLY 05/27/19 [History] predniSONE [Prednisone] 40 mg PO ASDIRECTED 05/27/19 [History] Past Medical History HEENT History: Reports: Cataract Cardiovascular History: Reports: Heart Failure, High Cholesterol, Hypertension Genitourinary History: Reports: Other (See Below) Other Genitourinary History: some kidney insuffiency Musculoskeletal History: Reports: Other (See Below) Other Musculoskeletal History: torn rotator cuff Endocrine/Metabolic History: Reports: Diabetes, Type II Hematologic History: Reports: Anticoagulation Therapy - Infectious Disease History Infectious Disease History: Reports: Mumps - Past Surgical History HEENT Surgical History: Reports: Cataract Surgery Cardiovascular Surgical History: Reports: Coronary Artery Bypass, Other (See Below) Other Cardiovascular Surgeries/Procedures: stents Male Surgical History: Reports: None Endocrine Surgical History: Reports: None Musculoskeletal Surgical History: Reports: Shoulder Surgery Social & Family History - Family History Endocrine/Metabolic: Reports: Diabetes, type II - Caffeine Use Caffeine Use: Reports: Coffee ED ROS GENERAL - Review of Systems Review Of Systems: See Below Constitutional: Reports: Weakness, Other ( decreased exercise tolerance. ) HEENT: Reports: No Symptoms Respiratory: Reports: Shortness of Breath, Wheezing, Cough Cardiovascular: Reports: No Symptoms, Other (pt has not had chest pain. ) Endocrine: Reports: No Symptoms GI/Abdominal: Reports: No Symptoms : Reports: No Symptoms Musculoskeletal: Reports: No Symptoms Skin: Reports: No Symptoms Neurological: Reports: Other (pt is having trouble comprehending things. ) Psychiatric: Reports: Anxiety Hematologic/Lymphatic: Reports: No Symptoms ED EXAM, GENERAL - Physical Exam Exam: See Below Free Text/Narrative:: pt arrived with marked chf. He has increased swelling in both legs. He is very sob with any activity and he is not able to lie flat. Exam Limited By: No Limitations General Appearance: Alert, Anxious, Moderate Distress Ears: Normal TMs Nose: Normal Inspection Throat/Mouth: Normal Inspection Head: Atraumatic Neck: Other (neck veins are prominent. ) Respiratory/Chest: Decreased Breath Sounds, Crackles Cardiovascular: Irregularly Irregular, Other (history of atrial fib. ) GI/Abdominal: Soft, Non-Tender (Male) Exam: Deferred Rectal (Males) Exam: Deferred Back Exam: Normal Inspection Extremities: Other (pt has profound edema in both legs. ) Neurological: Alert, Oriented, Normal Cognition, Other (pt is slightly lethargic. ) Psychiatric: Anxious Course - Vital Signs Last Recorded V/S: Last Vital Signs Temp 35.9 C 05/28/19 07:49 Pulse 82 05/28/19 08:06 Resp 16 05/28/19 07:49 BP 100/58 L 05/28/19 08:06 Pulse Ox 94 L 05/28/19 07:55 - Orders/Labs/Meds Orders: Active Orders 24 hr Category Date Time Status Sodium Chloride 0.9% [Saline Flush] Med 05/27/19 13:17 Active 10 ml FLUSH ASDIRECTED PRN Saline Lock Insert [OM.PC] Routine Oth 05/27/19 13:17 Ordered EKG 12 Lead [EK] Routine Ther 05/27/19 12:54 Stop Req Medication Orders Acetaminophen (Tylenol) 650 mg PO Q4H PRN PRN Reason: Pain (Mild 1-3)/fever Albuterol (Proventil Neb Soln) 2.5 mg NEB Q4H PRN PRN Reason: Shortness Of Breath/wheezing Albuterol/Ipratropium (Duoneb 3.0-0.5 Mg/3 Ml) 3 ml NEB QIDRT [facility] Last Admin: 05/28/19 07:55 Dose: 3 ml Admin: 05/27/19 20:29 Dose: 3 ml Admin: 05/27/19 17:49 Dose: 3 ml Allopurinol (Zyloprim) 300 mg PO DAILY [facility] Last Admin: 05/28/19 08:07 Dose: 300 mg Atorvastatin Calcium (Lipitor) 40 mg PO BEDTIME [facility] Last Admin: 05/27/19 20:26 Dose: 40 mg Clopidogrel Bisulfate (Plavix) 75 mg PO DAILY [facility] Last Admin: 05/28/19 08:06 Dose: 75 mg Insulin Human Isoph/Insulin Regular (Humulin 70-30) 10 units SUBCUT QPM [facility] Insulin Human Isoph/Insulin Regular (Humulin 70-30) 25 units SUBCUT ACBREAKFAST [facility] Insulin Human Lispro (Humalog) 0 unit SUBCUT QIDACANDBED [facility]; Protocol Last Admin: 05/28/19 08:19 Dose: Not Given Admin: 05/27/19 20:55 Dose: Not Given Admin: 05/27/19 17:53 Dose: 1 unit Magnesium Hydroxide (Milk Of Magnesia) 30 ml PO Q12H PRN PRN Reason: Constipation Melatonin (Melatonin) 9 mg PO BEDTIME [facility] Last Admin: 05/27/19 20:26 Dose: 9 mg Metoprolol Succinate (Toprol Xl) 25 mg PO DAILY [facility] Last Admin: 05/28/19 08:06 Dose: 25 mg Ondansetron HCl (Zofran Odt) 4 mg PO Q6H PRN PRN Reason: Nausea able to take PO Ondansetron HCl (Zofran) 4 mg IV Q6H PRN PRN Reason: Nausea/Vomiting Oxycodone HCl (Oxycodone) 5 mg PO Q4H PRN PRN Reason: Pain Senna/Docusate Sodium (Senna Plus) 1 tab PO BID [facility] Last Admin: 05/28/19 08:06 Dose: 1 tab Admin: 05/27/19 20:26 Dose: 1 tab Sodium Chloride (Saline Flush) 10 ml FLUSH ASDIRECTED PRN PRN Reason: Keep Vein Open Last Admin: 05/27/19 14:10 Dose: 10 ml Warfarin Sodium (Coumadin) 5 mg PO DAILY@1300 [facility] Last Admin: 05/27/19 17:49 Dose: 5 mg Labs: Laboratory Tests 05/27/19 05/27/19 05/27/19 Range/Units 12:54 13:48 13:48 D-Dimer, Quantitative 679 H (0.0-400.0) ng/mL Puncture Site Lt brachial ABG pH 7.396 (7.350-7.450) ABG pCO2 43.4 H (35.0-42.0) mmHg ABG pO2 14.5 L* (75.0-100.0) mmHg ABG HCO3 26.1 H (22.0-26.0) mmol/L ABG Total CO2 24.5 (23.0-27.0) mmol/L ABG O2 Saturation 11.5 L (95.0-98.0) % ABG O2 Content 1.7 L (15.0-23.0) %vol ABG Base Excess 1.5 mm/L ABG Hemoglobin 10.7 L (13.5-18.0) g/dL ABG Oxyhemoglobin 11.4 % ABG Carboxyhemoglobin 0.7 (0.0-1.6) % ABG Methemoglobin 0.5 % Ranjit Test Performed O2 Delivery Device Room air Troponin I 0.183 H* (0.000-0.056) ng/mL Meds: Medications Generic Name Dose Route Start Last Admin Trade Name Freq PRN Reason Stop Dose Admin Acetaminophen 650 mg 05/27/19 16:14 Tylenol PO Q4H PRN Pain (Mild 1-3)/fever Albuterol 2.5 mg 05/27/19 16:14 Proventil Neb Soln NEB Q4H PRN Shortness Of Breath/wheezing Albuterol/Ipratropium 3 ml 05/27/19 16:14 05/28/19 07:55 Duoneb 3.0-0.5 Mg/3 Ml NEB 3 ml QIDRT [facility] Administration Allopurinol 300 mg 05/28/19 09:00 05/28/19 08:07 Zyloprim PO 300 mg DAILY [facility] Administration Atorvastatin Calcium 40 mg 05/27/19 21:00 05/27/19 20:26 Lipitor PO 40 mg BEDTIME [facility] Administration Clopidogrel Bisulfate 75 mg 05/28/19 09:00 05/28/19 08:06 Plavix PO 75 mg DAILY [facility] Administration Insulin Human Isoph/Insulin Regular 10 units 05/28/19 17:00 Humulin 70-30 SUBCUT QPM [facility] Insulin Human Isoph/Insulin Regular 25 units 05/29/19 07:30 Humulin 70-30 SUBCUT ACBREAKFAST [facility] Insulin Human Lispro 0 unit 05/27/19 17:00 05/28/19 08:19 Humalog SUBCUT Not Given QIDACANDBED [facility] Protocol Magnesium Hydroxide 30 ml 05/27/19 16:14 Milk Of Magnesia PO Q12H PRN Constipation Melatonin 9 mg 05/27/19 21:00 05/27/19 20:26 Melatonin PO 9 mg BEDTIME [facility] Administration Metoprolol Succinate 25 mg 05/28/19 09:00 05/28/19 08:06 Toprol Xl PO 25 mg DAILY [facility] Administration Ondansetron HCl 4 mg 05/27/19 16:14 Zofran Odt PO Q6H PRN Nausea able to take PO Ondansetron HCl 4 mg 05/27/19 16:14 Zofran IV Q6H PRN Nausea/Vomiting Oxycodone HCl 5 mg 05/27/19 16:14 Oxycodone PO Q4H PRN Pain Senna/Docusate Sodium 1 tab 05/27/19 21:00 05/28/19 08:06 Senna Plus PO 1 tab BID [facility] Administration Sodium Chloride 10 ml 05/27/19 13:17 05/27/19 14:10 Saline Flush FLUSH 10 ml ASDIRECTED PRN Administration Keep Vein Open Warfarin Sodium 5 mg 05/27/19 16:14 05/27/19 17:49 Coumadin PO 5 mg DAILY@1300 [facility] Administration Discontinued Medications Generic Name Dose Route Start Last Admin Trade Name Freq PRN Reason Stop Dose Admin Furosemide 60 mg 05/27/19 13:33 05/27/19 14:08 Lasix IVPUSH 05/27/19 13:34 60 mg ONETIME ONE Administration Furosemide 60 mg 05/28/19 07:00 05/28/19 08:07 Lasix IVPUSH 05/28/19 07:01 60 mg ONETIME ONE Administration Insulin Human Isoph/Insulin Regular 30 units 05/28/19 07:30 05/28/19 08:12 Humulin 70-30 SUBCUT 30 units ACBREAKFAST [facility] Administration Insulin Human Isoph/Insulin Regular 15 units 05/27/19 17:00 05/27/19 17:56 Humulin 70-30 SUBCUT 15 units QPM [facility] Administration Sodium Chloride 10 ml 05/27/19 13:32 Saline Flush FLUSH ASDIRECTED PRN Keep Vein Open - Re-Assessments/Exams Free Text/Narrative Re-Assessment/Exam: 05/27/19 14:18 pt had a repeat trop which was down from this am. He has a very elevated bnp. His chest xray shows cardiomegoly and congestion. His creatnine is 1.7. He does have chronic renal issues. He did have a doppler on both legs. Departure - Departure Time of Disposition: 14:19 Disposition: Admitted As Inpatient 65 Condition: Fair Clinical Impression: Elevated troponin, Renal insufficiency, History of Coumadin therapy CHF (congestive heart failure) Qualifiers: Qualified Code(s): I50.23 - Acute on chronic systolic (congestive) heart failure Atrial fibrillation Qualifiers: Atrial fibrillation type: permanent Qualified Code(s): I48.21 - Permanent atrial fibrillation Sepsis Event Note - Focused Exam Date Exam was Performed: 05/28/19 Time Exam was Performed: 09:03 - My Orders Last 24 Hours: My Active Orders 05/27/19 12:54 EKG 12 Lead [EK] Routine 05/27/19 13:17 Sodium Chloride 0.9% [Saline Flush] 10 ml FLUSH ASDIRECTED PRN Saline Lock Insert [OM.PC] Routine - Assessment/Plan Last 24 Hours: My Active Orders 05/27/19 12:54 EKG 12 Lead [EK] Routine 05/27/19 13:17 Sodium Chloride 0.9% [Saline Flush] 10 ml FLUSH ASDIRECTED PRN Saline Lock Insert [OM.PC] Routine
[2019-05-27] MEDS ORDERED: Sodium Chloride 0.9% 10 ML Syringe FLUSH PRN (13:32)
[2019-05-27] MEDS ORDERED: Furosemide 40 MG/4 ML VIAL IVPUSH ONE (13:33)
[2019-05-27] MEDS: Sodium Chloride 0.9% 10 ML Syringe FLUSH PRN (14:10)
--- NOTE | 2019-05-27 14:55 | CRLUS ---
INDICATION: Shows of breath, bilateral leg swelling. COMPARISON: None. TECHNIQUE: A compression venous ultrasound exam was performed of the right and left lower extremity using yang-scale imaging, color Doppler and spectral Doppler analysis. FINDINGS: The right and left common femoral, femoral, and popliteal veins are fully compressible and patent. The paired veins of the calf are patent. IMPRESSION: Normal right and left lower extremity Doppler ultrasound. No evidence of DVT. Dictated by Earnest Carrera MD @ May 27 2019 2:51PM Signed by Dr. Earnest Carrera @ May 27 2019 2:52PM
--- NOTE | 2019-05-27 15:25 | PCM.HP.2 ---
H&P History of Present Illness - General Date of Service: 05/27/19 Admit Problem/Dx: Admission Diagnosis/Problem Admission Diagnosis/Problem Congestive heart failure Source of Information: Patient, Provider History Limitations: Reports: No Limitations - History of Present Illness Initial Comments - Free Text/Narative: CC: My legs are huge HPI: Ed presents to the emergency room today with 3 to 4 days of progressive lower extremity swelling and progressive shortness of breath, especially with exertion. He is currently at the [facility] for [facility] after a recent fall and spinal cord contusion. Towards the end of last week he had sudden onset of shortness of breath and some lower extremity swelling. Both of these have progressed fairly rapidly despite medication adjustments, antibiotic therapy and steroids. He reports significant shortness of breath after ambulating only a few feet and does feel even short of breath at rest. He has orthopnea. He has a dry cough. He has not had any chest pain. He does not think he had any fevers or chills. He has developed mild to moderate achy pain throughout his lower legs as the swelling has progressed. Pain pills have not helped the pain much. Pain has been fairly steady with no obvious exacerbating factors. No trouble passing urine. Bowels have been on the slow side. This morning he had a chest x-ray and some laboratory studies ordered by the [facility]. Chest x-ray showed cardiomegaly and a small effusion on the right. Laboratory studies showed slight worsening of his kidney function from baseline and a mild elevation of the troponin. Additional laboratory studies in the emergency room revealed an elevated BNP. D-dimer was also elevated. Lower extremity ultrasound negative for DVT. INR was only 1.5. He will be admitted for management of exacerbation of congestive heart failure. He is currently requiring supplemental oxygen. - Related Data Allergies/Adverse Reactions: Allergies Allergy/AdvReac Type Severity Reaction Status Date / Time lisinopril Allergy Other Verified 05/27/19 13:20 Home Medications: Home Meds allopurinoL [Zyloprim] 300 mg PO DAILY 03/25/16 [History] metFORMIN HCl [Metformin HCl] 1,000 mg PO DAILY 03/25/16 [History] Insulin NPH/Insulin Reg,Human [Novolin 70-30] 45 units SQ DAILY 04/29/19 [ History] Potassium Chloride 20 meq PO BID 04/29/19 [History] Warfarin [Coumadin] 5 mg PO DAILY 04/29/19 [History] atorvaSTATin [Lipitor] 40 mg PO BEDTIME 04/29/19 [History] oxyCODONE 5 mg PO Q4H PRN #20 tablet 05/06/19 [Rx] Clopidogrel Bisulfate [Clopidogrel] 75 mg PO DAILY 05/27/19 [History] Furosemide 80 mg PO BIDAC 05/27/19 [History] Ipratropium [Atrovent] 0.5 mg IH Q6HR 05/27/19 [History] Ipratropium/Albuterol Sulfate [Iprat-Albut 0.5-3(2.5) MG/3 ML] 1 vial NEB Q6H PRN 05/27/19 [History] Metoprolol Succinate 25 mg PO DAILY 05/27/19 [History] levoFLOXacin [Levofloxacin] 250 mg PO DAILY 05/27/19 [History] metOLazone [Metolazone] 2.5 mg PO WEEKLY 05/27/19 [History] predniSONE [Prednisone] 40 mg PO ASDIRECTED 05/27/19 [History] Past Medical History HEENT History: Reports: Cataract Cardiovascular History: Reports: Heart Failure, High Cholesterol, Hypertension Respiratory History: Reports: COPD Genitourinary History: Reports: Other (See Below) Other Genitourinary History: some kidney insuffiency Musculoskeletal History: Reports: Other (See Below) Other Musculoskeletal History: torn rotator cuff Endocrine/Metabolic History: Reports: Diabetes, Type II Hematologic History: Reports: Anticoagulation Therapy - Infectious Disease History Infectious Disease History: Reports: Mumps - Past Surgical History HEENT Surgical History: Reports: Cataract Surgery Cardiovascular Surgical History: Reports: Coronary Artery Bypass, Other (See Below) Other Cardiovascular Surgeries/Procedures: stents Male Surgical History: Reports: None Endocrine Surgical History: Reports: None Musculoskeletal Surgical History: Reports: Shoulder Surgery Social & Family History - Family History Endocrine/Metabolic: Reports: Diabetes, type II - Tobacco Use Smoking Status *Q: Never Smoker Second Hand Smoke Exposure: No - Caffeine Use Caffeine Use: Reports: Coffee - Recreational Drug Use Recreational Drug Use: No H&P Review of Systems - Review of Systems: Review Of Systems: See Below Free Text/Narrative: A complete 12 point review of systems was obtained. Pertinent positives and negatives are noted in the history of present illness. All other systems were reviewed and were negative except as noted. Exam - Exam Exam: See Below - Vital Signs Vital Signs: Last Vital Signs Temp 34.5 C L 05/27/19 13:16 Pulse 87 05/27/19 15:13 Resp 16 05/27/19 15:13 BP 93/47 L 05/27/19 15:13 Pulse Ox 94 L 05/27/19 15:13 Weight: 109.588 kg - Exam Quality Assessment: Supplemental Oxygen General: Alert, Oriented, Cooperative, Mild Distress HEENT: Conjunctiva Clear, Mucosa Moist & [place]. No: Scleral Icterus Neck: Supple, Trachea Midline, JVD Lungs: Crackles (Bilateral lower and midlung huertas). No: Normal Respiratory Effort (Increased work of breathing) Cardiovascular: Regular Rate, Irregular Rhythm, Systolic Murmur GI/Abdominal Exam: Normal Bowel Sounds, Soft, Non-Tender, No Distention Back Exam: Full Range of Motion. No: Muscle Spasm Extremities: Pedal Edema (Massive pitting edema extending from his feet all the way up to the waist and up onto the lower back), Increased Warmth (Both lower legs from below the knee to the foot, mild) Skin: Warm, Dry Neuro Extensive - Mental Status: Alert, Oriented x3, Nl Response to Commands Neuro Extensive - Motor, Sensory, Reflexes: No: Dysarthria, Abnormal Motor, Tremor Psychiatric: Alert, Normal Affect - Patient Data Lab Results Last 24 hrs: Laboratory Results - last 24 hr 05/27/19 05/27/19 05/27/19 Range/Units 12:54 13:48 13:48 D-Dimer, Quantitative 679 H (0.0-400.0) ng/mL Puncture Site Lt brachial ABG pH 7.396 (7.350-7.450) ABG pCO2 43.4 H (35.0-42.0) mmHg ABG pO2 14.5 L* (75.0-100.0) mmHg ABG HCO3 26.1 H (22.0-26.0) mmol/L ABG Total CO2 24.5 (23.0-27.0) mmol/L ABG O2 Saturation 11.5 L (95.0-98.0) % ABG O2 Content 1.7 L (15.0-23.0) %vol ABG Base Excess 1.5 mm/L ABG Hemoglobin 10.7 L (13.5-18.0) g/dL ABG Oxyhemoglobin 11.4 % ABG Carboxyhemoglobin 0.7 (0.0-1.6) % ABG Methemoglobin 0.5 % Ranjit Test Performed O2 Delivery Device Room air Troponin I 0.183 H* (0.000-0.056) ng/mL Imaging Impressions Last 24 hrs: Chest x-ray-image personally reviewed-there is evidence for cardiomegaly and previous sternotomy. Small right pleural effusion. No obvious mass or infiltrate. Sepsis Event Note - Evaluation Sepsis Screening Result: No Definite Risk - Focused Exam Vital Signs: Vital Signs Temp Pulse Resp BP Pulse Ox 05/27/19 15:13 87 16 93/47 L 94 L 05/27/19 13:16 34.5 C L 100 24 H 139/116 H 95 05/27/19 12:58 34.5 C L 100 24 H 139/116 H 95 Date Exam was Performed: 05/27/19 Time Exam was Performed: 15:29 *Q Meaningful Use (ADM) - VTE Risk Assess *Q Each Risk Factor Represents 1 Point: Swollen Legs, Current, Obesity ( BMI > 25 kg/m2), Congestive heart failure (CHF), Abnormal Pulmonary Function (COPD) Total Score 1 Point Risk Factors: 4 Each Risk Factor Represents 2 Points: None Total Score 2 Point Risk Factors: 0 Each Risk Factor Represents 3 Points: Age 75 Years or Greater Total Score 3 Point Risk Factors: 3 Each Risk Factor Represents 5 Points: None Total Score 5 Point Risk Factors: 0 Venous Thromboembolism Risk Factor Score *Q: 7 - Problem List (1) Acute combined systolic and diastolic CHF, NYHA class 3 SNOMED Code(s): 462726450939682, 584400486, 322386075804983 ICD Code: I50.41 - ACUTE COMBINED SYSTOLIC AND DIASTOLIC (CONGESTIVE) HRT FAIL Status: Acute Current Visit: Yes (2) Elevated troponin SNOMED Code(s): 519305756, 777788000, 058009134 ICD Code: R79.89 - OTHER SPECIFIED ABNORMAL FINDINGS OF BLOOD CHEMISTRY Status: Acute Current Visit: Yes (3) Ischemic cardiomyopathy SNOMED Code(s): 841809769 ICD Code: I25.5 - ISCHEMIC CARDIOMYOPATHY Status: Chronic Current Visit: Yes (4) Insulin dependent diabetes mellitus SNOMED Code(s): 99012113 ICD Code: E11.9 - TYPE 2 DIABETES MELLITUS WITHOUT COMPLICATIONS; Z79.4 - SKILLED NURSING (CURRENT) USE OF INSULIN Status: Chronic Current Visit: Yes (5) Atrial fibrillation SNOMED Code(s): 92685289 ICD Code: I48.91 - UNSPECIFIED ATRIAL FIBRILLATION Status: Chronic Current Visit: Yes Qualifiers: Atrial fibrillation type: permanent Qualified Code(s): I48.21 - Permanent atrial fibrillation (6) CAD (coronary artery disease) SNOMED Code(s): 22433576 ICD Code: I25.10 - ATHSCL HEART DISEASE OF [place] CORONARY ARTERY W/O ANG PCTRS Status: Chronic Current Visit: No Qualifiers: Coronary Disease-Associated Artery/Lesion type: [place] artery [place] vs. transplanted heart: [place] heart Associated angina: without angina Qualified Code(s): I25.10 - Atherosclerotic heart disease of [place] coronary artery without angina pectoris (7) CKD (chronic kidney disease) stage 3, GFR 30-59 ml/min SNOMED Code(s): 774501731 ICD Code: N18.3 - CHRONIC KIDNEY DISEASE, STAGE 3 (MODERATE) Status: Chronic Current Visit: No Problem List Initiated/Reviewed/Updated: Yes Orders Last 24hrs: Active Orders 24 hr Category Date Time Status Patient Status Manage Transfer [TRANSFER] Routine ADT 05/27/19 15:11 Ordered EKG Documentation Completion [RC] ASDIRECTED Care 05/27/19 12:54 Active Sodium Chloride 0.9% [Saline Flush] Med 05/27/19 13:17 Active 10 ml FLUSH ASDIRECTED PRN Sodium Chloride 0.9% [Saline Flush] Med 05/27/19 13:32 Active 10 ml FLUSH ASDIRECTED PRN Saline Lock Insert [OM.PC] Routine Oth 05/27/19 13:17 Ordered Saline Lock Insert [OM.PC] Routine Oth 05/27/19 13:32 Ordered Resuscitation Status Routine Resus Stat 05/27/19 15:14 Ordered EKG 12 Lead [EK] Routine Ther 05/27/19 12:54 Ordered Medication Orders Sodium Chloride (Saline Flush) 10 ml FLUSH ASDIRECTED PRN PRN Reason: Keep Vein Open Last Admin: 05/27/19 14:10 Dose: 10 ml Sodium Chloride (Saline Flush) 10 ml FLUSH ASDIRECTED PRN PRN Reason: Keep Vein Open Assessment/Plan Comment:: ASSESSMENT AND PLAN - Acute combined systolic and diastolic congestive heart failure-complicated by hypoxic respiratory failure. Symptoms include dyspnea and weakness with signs including hypoxic respiratory failure and significant edema/anasarca. History of ischemic cardiomyopathy with reduced ejection fraction but last echo was about 3 years ago. No obvious exacerbating event based on his history. He is not safe for outpatient management as he has had recent medication changes and continues to worsen despite these changes. He has received IV furosemide in the emergency room. -Supplement oxygen -Strict intake and output monitoring -Repeat furosemide dosing in the morning -Continue beta-iqra -Daily weights -Doni stockings to help with lower extremity edema Elevated troponin-Mild elevation likely reflective of heart strain with congestive heart failure and poor clearance from kidney disease. Level is trending down. -Repeat level in the morning COPD-stable at this time. There was some concern about COPD exacerbation with increasing shortness of breath and he has been on antibiotics and steroids but I do not believe these are necessary at this time and they will be discontinued. Shortness of breath likely related to his congestive heart failure. No evidence for infection. No wheezing. -Scheduled nebulizers Stage III chronic knee disease-creatinine slightly higher than baseline, likely related to his congestive heart failure. -Labs in the morning with close monitoring during diuresis Insulin-dependent diabetes mellitus-intermittent hypoglycemia. Currently receiving his 70/30 mix only once a day. -Change NovoLog 70/30 to 30 units in the morning and 15 in the evening -Accu-Cheks 4 times daily Chronic atrial fibrillation-rate controlled at this time with his metoprolol. He is chronically anticoagulated though INR is slightly low. -Continue warfarin with daily INR -Continue beta-iqra Recent nasal fracture and spinal cord contusion-has been doing well with therapy and is improving from the standpoint. Maintenance issues - - DVT prophylaxis -warfarin - GI prophylaxis -not indicated - Nutrition -consistent carbohydrate - Rubi catheter -not indicated CODE STATUS -DNR/DNI Admission justification - this patient will be admitted for inpatient services and is medically appropriate meeting medical necessity for inpatient admission as outlined in my documentation. I reasonably expect the patient will require inpatient services that span a period time over 2 midnights. I reasonably expect this patient to be discharged or transferred within 96 hours [facility]. Disposition -I would anticipate discharge back to the [facility] after the hospital stay for additional rehabilitation Primary care physician -Dr. Kenneth Teixeira M.D. - Mortality Measure Prognosis:: Good
[2019-05-27] MEDS ORDERED: Ondansetron 4 MG/2 ML SDV IV PRN (16:14)
[2019-05-27] MEDS ORDERED: Ondansetron 4 MG Tab.DIS PO PRN (16:14)
[2019-05-27] MEDS ORDERED: Albuterol 0.083% 2.5 MG/3 ML Neb Soln NEB PRN (16:14)
[2019-05-27] MEDS ORDERED: Magnesium Hydroxide 400 MG/5 ML Susp 30 ML Cup PO PRN (16:14)
[2019-05-27] MEDS ORDERED: Insulin NPH/Insulin Regular,Human 70-30 100 Units/ML 10 ML Vial SUBCUT SCH (17:00)
[2019-05-27] MEDS: Warfarin 5 MG Tab PO SCH (17:49)
[2019-05-27] MEDS: Albuterol/Ipratropium 3.0-0.5 MG/3 ML Neb Soln NEB SCH ×2 (17:49→20:29)
[2019-05-27] MEDS: Insulin Lispro 100 Unit/ML 3 ML KwikPen SUBCUT SCH ×2 (17:53→20:55)
[2019-05-27] MEDS: atorvaSTATin 20 MG Tab PO SCH (20:26)
[2019-05-27] MEDS: Melatonin 3 MG Tab PO SCH (20:26)
[2019-05-28] MEDS ORDERED: Furosemide 20 MG/2 ML VIAL IVPUSH ONE (07:00)
[2019-05-28] MEDS ORDERED: Insulin NPH/Insulin Regular,Human 70-30 100 Units/ML 10 ML Vial SUBCUT SCH (07:30)
[2019-05-28] MEDS: Albuterol/Ipratropium 3.0-0.5 MG/3 ML Neb Soln NEB SCH ×4 (07:55→20:27)
[2019-05-28] MEDS: Clopidogrel 75 MG Tab PO SCH (08:06)
[2019-05-28] MEDS: Metoprolol Succinate 25 MG Tab.ER PO SCH (08:06)
[2019-05-28] MEDS: Allopurinol 300 MG Tab PO SCH (08:07)
[2019-05-28] MEDS: Insulin Lispro 100 Unit/ML 3 ML KwikPen SUBCUT SCH (08:19)
--- NOTE | 2019-05-28 10:07 | PCM.PN ---
- General Info Date of Service: 05/28/19 Subjective Update: Suboptimal response to diuresis overnight but otherwise no acute events. Lower extremity edema and anasarca are essentially stable since admission. Creatinine is slightly higher today than yesterday. He feels less short of breath and work of breathing has decreased. No complaints of chest pain. Feels weak and tired. Appetite has been acceptable but room for improvement. Blood sugar was low this morning and has been improving. Functional Status: Reports: Pain Controlled, Tolerating Diet - Review of Systems General: Reports: Weakness Pulmonary: Reports: Shortness of Breath Cardiovascular: Reports: Edema - Patient Data Vitals - Most Recent: Last Vital Signs Temp 35.9 C 05/28/19 07:49 Pulse 82 05/28/19 08:06 Resp 16 05/28/19 07:49 BP 100/58 L 05/28/19 08:06 Pulse Ox 94 L 05/28/19 07:55 Weight - Most Recent: 107.048 kg I&O - Last 24 Hours: Intake & Output 05/27/19 05/28/19 05/28/19 22:59 06:59 14:59 Output Total 320 350 500 Balance -320 -350 -500 Lab Results Last 24 Hours: Laboratory Results - last 24 hr 05/27/19 05/27/19 05/27/19 Range/Units 12:54 13:48 13:48 WBC (4.5-11.0) K/uL RBC (4.30-5.90) M/uL Hgb (12.0-15.0) g/dL Hct (40.0-54.0) % MCV (80-98) fL MCH (27-31) pg MCHC (32-36) % Plt Count (150-400) K/uL PT (9.5-12.0) sec INR (0.80-1.20) D-Dimer, Quantitative 679 H (0.0-400.0) ng/mL Puncture Site Lt brachial ABG pH 7.396 (7.350-7.450) ABG pCO2 43.4 H (35.0-42.0) mmHg ABG pO2 14.5 L* (75.0-100.0) mmHg ABG HCO3 26.1 H (22.0-26.0) mmol/L ABG Total CO2 24.5 (23.0-27.0) mmol/L ABG O2 Saturation 11.5 L (95.0-98.0) % ABG O2 Content 1.7 L (15.0-23.0) %vol ABG Base Excess 1.5 mm/L ABG Hemoglobin 10.7 L (13.5-18.0) g/dL ABG Oxyhemoglobin 11.4 % ABG Carboxyhemoglobin 0.7 (0.0-1.6) % ABG Methemoglobin 0.5 % Ranjit Test Performed O2 Delivery Device Room air Sodium (140-148) mmol/L Potassium (3.6-5.2) mmol/L Chloride (100-108) mmol/L Carbon Dioxide (21-32) mmol/L Anion Gap (5.0-14.0) mmol/L BUN (7-18) mg/dL Creatinine (0.8-1.3) mg/dL Est Cr Clr Drug Dosing mL/min Estimated GFR (MDRD) (>60) Glucose (74-106) mg/dL Calcium (8.5-10.1) mg/dL Magnesium (1.8-2.4) mg/dL Troponin I 0.183 H* (0.000-0.056) ng/mL 05/28/19 05/28/19 05/28/19 Range/Units 04:00 04:00 04:00 WBC 10.3 (4.5-11.0) K/uL RBC 3.86 L (4.30-5.90) M/uL Hgb 10.4 L (12.0-15.0) g/dL Hct 34.4 L (40.0-54.0) % MCV 89 (80-98) fL MCH 27 (27-31) pg MCHC 30 L (32-36) % Plt Count 382 (150-400) K/uL PT 18.6 H (9.5-12.0) sec INR 1.78 H (0.80-1.20) D-Dimer, Quantitative (0.0-400.0) ng/mL Puncture Site ABG pH (7.350-7.450) ABG pCO2 (35.0-42.0) mmHg ABG pO2 (75.0-100.0) mmHg ABG HCO3 (22.0-26.0) mmol/L ABG Total CO2 (23.0-27.0) mmol/L ABG O2 Saturation (95.0-98.0) % ABG O2 Content (15.0-23.0) %vol ABG Base Excess mm/L ABG Hemoglobin (13.5-18.0) g/dL ABG Oxyhemoglobin % ABG Carboxyhemoglobin (0.0-1.6) % ABG Methemoglobin % Ranjit Test O2 Delivery Device Sodium 133 L (140-148) mmol/L Potassium 4.4 (3.6-5.2) mmol/L Chloride 96 L (100-108) mmol/L Carbon Dioxide 27 (21-32) mmol/L Anion Gap 14.4 H (5.0-14.0) mmol/L BUN 57 H (7-18) mg/dL Creatinine 1.8 H (0.8-1.3) mg/dL Est Cr Clr Drug Dosing 34.36 mL/min Estimated GFR (MDRD) 37 L (>60) Glucose 51 L (74-106) mg/dL Calcium 8.5 (8.5-10.1) mg/dL Magnesium 2.4 (1.8-2.4) mg/dL Troponin I 0.137 H* (0.000-0.056) ng/mL Med Orders - Current: Current Medications Acetaminophen (Tylenol) 650 mg PO Q4H PRN PRN Reason: Pain (Mild 1-3)/fever Albuterol (Proventil Neb Soln) 2.5 mg NEB Q4H PRN PRN Reason: Shortness Of Breath/wheezing Albuterol/Ipratropium (Duoneb 3.0-0.5 Mg/3 Ml) [address] [facility] Last Admin: 05/28/19 07:55 Dose: 3 ml Allopurinol (Zyloprim) [address] [facility] Last Admin: 05/28/19 08:07 Dose: 300 mg Atorvastatin Calcium (Lipitor) [address] [facility] Last Admin: 05/27/19 20:26 Dose: 40 mg Clopidogrel Bisulfate (Plavix) [address] [facility] Last Admin: 05/28/19 08:06 Dose: 75 mg Insulin Human Isoph/Insulin Regular (Humulin 70-30) [address] [facility] Insulin Human Isoph/Insulin Regular (Humulin 70-30) [address] [facility] Magnesium Hydroxide (Milk Of Magnesia) 30 ml PO Q12H PRN PRN Reason: Constipation Melatonin (Melatonin) [address] [facility] Last Admin: 05/27/19 20:26 Dose: 9 mg Metoprolol Succinate (Toprol Xl) [address] [facility] Last Admin: 05/28/19 08:06 Dose: 25 mg Ondansetron HCl (Zofran Odt) 4 mg PO Q6H PRN PRN Reason: Nausea able to take PO Ondansetron HCl (Zofran) 4 mg IV Q6H PRN PRN Reason: Nausea/Vomiting Oxycodone HCl (Oxycodone) 5 mg PO Q4H PRN PRN Reason: Pain Senna/Docusate Sodium (Senna Plus) [address] [facility] Last Admin: 05/28/19 08:06 Dose: 1 tab Sodium Chloride (Saline Flush) 10 ml FLUSH ASDIRECTED PRN PRN Reason: Keep Vein Open Last Admin: 05/27/19 14:10 Dose: 10 ml Warfarin Sodium (Coumadin) 5 mg PO DAILY@1300 [facility] Last Admin: 05/27/19 17:49 Dose: 5 mg Discontinued Medications Furosemide (Lasix) 60 mg IVPUSH ONETIME ONE Stop: 05/27/19 13:34 Last Admin: 05/27/19 14:08 Dose: 60 mg Furosemide (Lasix) 60 mg IVPUSH ONETIME ONE Stop: 05/28/19 07:01 Last Admin: 05/28/19 08:07 Dose: 60 mg Insulin Human Isoph/Insulin Regular (Humulin 70-30) [address] [facility] Last Admin: 05/28/19 08:12 Dose: 30 units Insulin Human Isoph/Insulin Regular (Humulin 70-30) [address] [facility] Last Admin: 05/27/19 17:56 Dose: 15 units Insulin Human Lispro (Humalog) [address] [facility]; Protocol Last Admin: 05/28/19 08:19 Dose: Not Given Sodium Chloride (Saline Flush) 10 ml FLUSH ASDIRECTED PRN PRN Reason: Keep Vein Open - Exam Quality Assessment: Supplemental Oxygen General: Alert, Oriented, Cooperative, No Acute Distress Lungs: Normal Respiratory Effort, Crackles (few both lung bases) Cardiovascular: Regular Rate, Regular Rhythm, Murmurs GI/Abdominal Exam: Soft, No Distention Extremities: Pedal Edema, Increased Warmth (both lower legs from the ankle to below the knee ) Skin: Warm, Dry Psy/Mental Status: Alert, Normal Affect Sepsis Event Note - Evaluation Sepsis Screening Result: No Definite Risk - Focused Exam Vital Signs: Vital Signs Temp Pulse Pulse Resp BP BP Pulse Ox 05/28/19 08:06 82 100/58 L 05/28/19 07:55 109 H 05/28/19 07:49 35.9 C 111 H 16 99/58 L 95 05/28/19 03:00 35.2 C 95 20 85/55 L 95 05/27/19 23:00 35.7 C 62 20 100/68 95 Pulse Ox 05/28/19 08:06 05/28/19 07:55 94 L 05/28/19 07:49 05/28/19 03:00 05/27/19 23:00 Date Exam was Performed: 05/28/19 Time Exam was Performed: 12:54 - Problem List & Annotations (1) Acute combined systolic and diastolic CHF, NYHA class 3 SNOMED Code(s): 465538690782487, 842354767, 373522281596278 Code(s): I50.41 - ACUTE COMBINED SYSTOLIC AND DIASTOLIC (CONGESTIVE) HRT FAIL Status: Acute Current Visit: Yes (2) Elevated troponin SNOMED Code(s): 331634006, 992796692, 813332214 Code(s): R79.89 - OTHER SPECIFIED ABNORMAL FINDINGS OF BLOOD CHEMISTRY Status: Acute Current Visit: Yes (3) Ischemic cardiomyopathy SNOMED Code(s): 949543282 Code(s): I25.5 - ISCHEMIC CARDIOMYOPATHY Status: Chronic Current Visit: Yes (4) Insulin dependent diabetes mellitus SNOMED Code(s): 39153567 Code(s): E11.9 - TYPE 2 DIABETES MELLITUS WITHOUT COMPLICATIONS; Z79.4 - CUSTODIAL (CURRENT) USE OF INSULIN Status: Chronic Current Visit: Yes (5) Atrial fibrillation SNOMED Code(s): 24188776 Code(s): I48.91 - UNSPECIFIED ATRIAL FIBRILLATION Status: Chronic Current Visit: Yes Qualifiers: Atrial fibrillation type: permanent Qualified Code(s): I48.21 - Permanent atrial fibrillation (6) CAD (coronary artery disease) SNOMED Code(s): 02354551 Code(s): I25.10 - ATHSCL HEART DISEASE OF [place] CORONARY ARTERY W/O ANG PCTRS Status: Chronic Current Visit: No Qualifiers: Coronary Disease-Associated Artery/Lesion type: [place] artery [place] vs. transplanted heart: [place] heart Associated angina: without angina Qualified Code(s): I25.10 - Atherosclerotic heart disease of [place] coronary artery without angina pectoris (7) CKD (chronic kidney disease) stage 3, GFR 30-59 ml/min SNOMED Code(s): 550009339 Code(s): N18.3 - CHRONIC KIDNEY DISEASE, STAGE 3 (MODERATE) Status: Chronic Current Visit: No - Problem List Review Problem List Initiated/Reviewed/Updated: Yes - My Orders Last 24 Hours: My Active Orders 05/27/19 15:14 Resuscitation Status Routine 05/27/19 16:14 Patient Status [ADT] Routine Ambulate [RC] QID Antiembolic Devices [RC] .Routine Communication Order [RC] DAILY Communication Order [RC] PRN Communication Order [RC] PRN Diabetes Education [RC] Click to Edit Height and Weight [RC] DAILY Intake and Output [RC] QSHIFT Notify Provider Vital Signs [RC] ASDIRECTED Notify Provider [RC] .PRN Oxygen Therapy [RC] .PRN RT Aerosol Therapy [RC] ASDIRECTED Up With Assistance [RC] ASDIRECTED VTE/DVT Education [RC] Per Unit Routine Vital Signs [RC] Q4H Acetaminophen [Tylenol] 650 mg PO Q4H PRN Albuterol [Proventil Neb Soln] 2.5 mg NEB Q4H PRN Albuterol/Ipratropium [DuoNeb 3.0-0.5 MG/3 ML] 3 ml NEB QIDRT Magnesium Hydroxide [Milk of Magnesia] 30 ml PO Q12H PRN Ondansetron [Zofran ODT] 4 mg PO Q6H PRN Ondansetron [Zofran] 4 mg IV Q6H PRN Warfarin [Coumadin] 5 mg PO DAILY@1300 oxyCODONE 5 mg PO Q4H PRN Antiembolic Hose [OM.PC] Routine 05/27/19 21:00 Docusate Sodium/Sennosides [Senna Plus] 1 tab PO BID Melatonin 9 mg PO BEDTIME atorvaSTATin [Lipitor] 40 mg PO BEDTIME 05/27/19 Dinner Consistent Carbohydrate Diet [DIET] 05/28/19 07:00 PT Evaluation and Treatment [CONS] Routine 05/28/19 09:00 Clopidogrel [Plavix] 75 mg PO DAILY Metoprolol Succinate [Toprol XL] 25 mg PO DAILY allopurinoL [Zyloprim] 300 mg PO DAILY 05/28/19 10:05 Discontinue Telemetry Monitoring [Cardiac Monitoring Discontinue] [RC] Click to Edit Urinary Catheter Assessment [RC] ASDIRECTED 05/28/19 10:15 Insert Rubi Catheter [Insert Urinary Catheter] [OM.PC] Q24H Bumetanide [Bumex] 2 mg IVPUSH Q12H 05/28/19 11:30 GLUCOSE POC LAB TO COLLECT [POC] QIDACANDBED 05/28/19 16:30 GLUCOSE POC LAB TO COLLECT [POC] QIDACANDBED 05/28/19 17:00 Insulin NPH/Insulin Reg,Human [HumuLIN 70-30] 10 units SUBCUT QPM 05/28/19 21:00 GLUCOSE POC LAB TO COLLECT [POC] QIDACANDBED 05/29/19 05:00 BASIC METABOLIC PANEL,BMP [CHEM] Timed INR,PT,PROTHROMBIN TIME [COAG] Timed 05/29/19 07:00 Echo Comp wo Cont [US] Routine 05/29/19 07:30 GLUCOSE POC LAB TO COLLECT [POC] QIDACANDBED Insulin NPH/Insulin Reg,Human [HumuLIN 70-30] 25 units SUBCUT ACBREAKFAST 05/29/19 11:30 GLUCOSE POC LAB TO COLLECT [POC] QIDACANDBED 05/29/19 16:30 GLUCOSE POC LAB TO COLLECT [POC] QIDACANDBED 05/29/19 21:00 GLUCOSE POC LAB TO COLLECT [POC] QIDACANDBED 05/30/19 07:30 GLUCOSE POC LAB TO COLLECT [POC] QIDACANDBED 05/30/19 11:30 GLUCOSE POC LAB TO COLLECT [POC] QIDACANDBED 05/30/19 16:30 GLUCOSE POC LAB TO COLLECT [POC] QIDACANDBED 05/30/19 21:00 GLUCOSE POC LAB TO COLLECT [POC] QIDACANDBED 05/31/19 07:30 GLUCOSE POC LAB TO COLLECT [POC] QIDACANDBED 05/31/19 11:30 GLUCOSE POC LAB TO COLLECT [POC] QIDACANDBED 05/31/19 16:30 GLUCOSE POC LAB TO COLLECT [POC] QIDACANDBED 05/31/19 21:00 GLUCOSE POC LAB TO COLLECT [POC] QIDACANDBED 06/01/19 07:30 GLUCOSE POC LAB TO COLLECT [POC] QIDACANDBED 06/01/19 11:30 GLUCOSE POC LAB TO COLLECT [POC] QIDACANDBED 06/01/19 16:30 GLUCOSE POC LAB TO COLLECT [POC] QIDACANDBED 06/01/19 21:00 GLUCOSE POC LAB TO COLLECT [POC] QIDACANDBED 06/02/19 07:30 GLUCOSE POC LAB TO COLLECT [POC] QIDACANDBED - Plan Plan:: ASSESSMENT AND PLAN - Acute combined systolic and diastolic congestive heart failure-complicated by hypoxic respiratory failure. Stable since admission but not dramatically improved. Slight improvement in shortness of breath. Suboptimal response to furosemide. -Supplement oxygen -Strict intake and output monitoring -Trial of bumetanide -Insert Rubi catheter for strict intake and output monitoring -Continue beta-iqra -Daily weights -Doni stockings to help with lower extremity edema Elevated troponin-Mild elevation likely reflective of heart strain with congestive heart failure and poor clearance from kidney disease. Level has continued to trend down. -Repeat level in the morning COPD-stable at this time. No evidence for exacerbation at this time. -Scheduled nebulizers Stage III chronic knee disease-creatinine slightly higher again today. -Labs in the morning with close monitoring during diuresis Insulin-dependent diabetes mellitus-hypoglycemia noted this morning despite further reduction in his insulin dosing. -Decreased NovoLog 70/30 to 25 units in the morning and 10 in the evening -Accu-Cheks 4 times daily Chronic atrial fibrillation-rate controlled at this time with his metoprolol. He is chronically anticoagulated though INR remains slightly low but is improving. -Continue warfarin with daily INR -Continue beta-iqra Recent nasal fracture and spinal cord contusion-has been doing well with therapy and is improving from the standpoint. Maintenance issues - - DVT prophylaxis -warfarin - GI prophylaxis -not indicated - Nutrition -consistent carbohydrate - Rubi catheter -will be placed today for strict intake and output monitoring in a critical patient with congestive heart failure and chronic kidney disease which is worsening Disposition -I would anticipate discharge back to the skilled nursing after the hospital stay for additional rehabilitation Wilberto Teixeira M.D.
[2019-05-28] MEDS: Bumetanide 2.5 MG/10 ML MDV IVPUSH SCH ×2 (10:35→23:00)
[2019-05-28] MEDS: Warfarin 5 MG Tab PO SCH (13:38)
[2019-05-28] MEDS: Insulin NPH/Insulin Regular,Human 70-30 100 Units/ML 10 ML Vial SUBCUT SCH (16:58)
[2019-05-28] MEDS: Melatonin 3 MG Tab PO SCH (20:23)
[2019-05-28] MEDS: atorvaSTATin 20 MG Tab PO SCH (20:23)
[2019-05-29] MEDS: Albuterol/Ipratropium 3.0-0.5 MG/3 ML Neb Soln NEB SCH ×4 (07:04→20:18)
[2019-05-29] MEDS ORDERED: Insulin NPH/Insulin Regular,Human 70-30 100 Units/ML 10 ML Vial SUBCUT SCH (07:30)
[2019-05-29] MEDS: Allopurinol 300 MG Tab PO SCH (08:55)
[2019-05-29] MEDS: Clopidogrel 75 MG Tab PO SCH (08:55)
[2019-05-29] MEDS: Metoprolol Succinate 25 MG Tab.ER PO SCH (08:56)
--- NOTE | 2019-05-29 09:54 | PCM.PN ---
- General Info Date of Service: 05/29/19 Subjective Update: No acute events overnight. Good response to diuresis yesterday and weight is down a couple of pounds. Lower extremity edema has improved. He still feels short of breath. He has been a little bit confused. Head CT was negative. Creatinine slightly better today. Blood pressure on the low side of normal this morning. No complaints of chest pain. Functional Status: Reports: Pain Controlled, Tolerating Diet - Review of Systems General: Reports: Weakness Pulmonary: Reports: Shortness of Breath Cardiovascular: Reports: Edema - Patient Data Vitals - Most Recent: Last Vital Signs Temp 36.3 C 05/29/19 02:00 Pulse 104 H 05/29/19 08:56 Resp 16 05/29/19 07:19 BP 131/96 H 05/29/19 08:56 Pulse Ox 97 05/29/19 07:19 Weight - Most Recent: 106.322 kg I&O - Last 24 Hours: Intake & Output 05/28/19 05/29/19 05/29/19 22:59 06:59 14:59 Intake Total 500 200 480 Output Total 900 1100 300 Balance -400 -900 180 Lab Results Last 24 Hours: Laboratory Results - last 24 hr 05/29/19 05/29/19 Range/Units 04:52 04:52 PT 33.7 H (9.5-12.0) sec INR 3.34 H (0.80-1.20) Sodium 133 L (140-148) mmol/L Potassium 3.9 (3.6-5.2) mmol/L Chloride 96 L (100-108) mmol/L Carbon Dioxide 27 (21-32) mmol/L Anion Gap 13.9 (5.0-14.0) mmol/L BUN 53 H (7-18) mg/dL Creatinine 1.7 H (0.8-1.3) mg/dL Est Cr Clr Drug Dosing 36.38 mL/min Estimated GFR (MDRD) 39 L (>60) Glucose 96 (74-106) mg/dL Calcium 8.6 (8.5-10.1) mg/dL Med Orders - Current: Current Medications Acetaminophen (Tylenol) 650 mg PO Q4H PRN PRN Reason: Pain (Mild 1-3)/fever Albuterol (Proventil Neb Soln) 2.5 mg NEB Q4H PRN PRN Reason: Shortness Of Breath/wheezing Albuterol/Ipratropium (Duoneb 3.0-0.5 Mg/3 Ml) 3 ml NEB QIDRT [facility] Last Admin: 05/29/19 07:04 Dose: 3 ml Allopurinol (Zyloprim) 300 mg PO DAILY [facility] Last Admin: 05/29/19 08:55 Dose: 300 mg Atorvastatin Calcium (Lipitor) 40 mg PO BEDTIME [facility] Last Admin: 05/28/19 20:23 Dose: 40 mg Bumetanide (Bumex) 2 mg IVPUSH Q12H [facility] Last Admin: 05/28/19 23:00 Dose: 2 mg Clopidogrel Bisulfate (Plavix) 75 mg PO DAILY [facility] Last Admin: 05/29/19 08:55 Dose: 75 mg Insulin Human Isoph/Insulin Regular (Humulin 70-30) 10 units SUBCUT QPM [facility] Last Admin: 05/28/19 16:58 Dose: 10 units Insulin Human Isoph/Insulin Regular (Humulin 70-30) 25 units SUBCUT ACBREAKFAST [facility] Last Admin: 05/29/19 07:33 Dose: 25 units Magnesium Hydroxide (Milk Of Magnesia) 30 ml PO Q12H PRN PRN Reason: Constipation Melatonin (Melatonin) 9 mg PO BEDTIME [facility] Last Admin: 05/28/19 20:23 Dose: 9 mg Metoprolol Succinate (Toprol Xl) 25 mg PO DAILY [facility] Last Admin: 05/29/19 08:56 Dose: 25 mg Ondansetron HCl (Zofran Odt) 4 mg PO Q6H PRN PRN Reason: Nausea able to take PO Ondansetron HCl (Zofran) 4 mg IV Q6H PRN PRN Reason: Nausea/Vomiting Oxycodone HCl (Oxycodone) 5 mg PO Q4H PRN PRN Reason: Pain Senna/Docusate Sodium (Senna Plus) 1 tab PO BID [facility] Last Admin: 05/29/19 08:56 Dose: 1 tab Sodium Chloride (Saline Flush) 10 ml FLUSH ASDIRECTED PRN PRN Reason: Keep Vein Open Last Admin: 05/27/19 14:10 Dose: 10 ml Warfarin Sodium (Coumadin) 5 mg PO DAILY@1300 [facility] Last Admin: 05/28/19 13:38 Dose: 5 mg Discontinued Medications Furosemide (Lasix) 60 mg IVPUSH ONETIME ONE Stop: 05/27/19 13:34 Last Admin: 05/27/19 14:08 Dose: 60 mg Furosemide (Lasix) 60 mg IVPUSH ONETIME ONE Stop: 05/28/19 07:01 Last Admin: 05/28/19 08:07 Dose: 60 mg Insulin Human Isoph/Insulin Regular (Humulin 70-30) 30 units SUBCUT ACBREAKFAST [facility] Last Admin: 05/28/19 08:12 Dose: 30 units Insulin Human Isoph/Insulin Regular (Humulin 70-30) 15 units SUBCUT QPM [facility] Last Admin: 05/27/19 17:56 Dose: 15 units Insulin Human Lispro (Humalog) 0 unit SUBCUT QIDACANDBED [facility]; Protocol Last Admin: 05/28/19 08:19 Dose: Not Given Sodium Chloride (Saline Flush) 10 ml FLUSH ASDIRECTED PRN PRN Reason: Keep Vein Open - Exam Quality Assessment: No: Supplemental Oxygen General: Alert, Oriented, Cooperative, No Acute Distress Lungs: Normal Respiratory Effort, Crackles (both bases) Cardiovascular: Regular Rate, Irregular Rhythm, Murmurs GI/Abdominal Exam: Soft, No Distention Extremities: Pedal Edema, Increased Warmth Skin: Warm, Dry Psy/Mental Status: Alert, Normal Affect Sepsis Event Note - Evaluation Sepsis Screening Result: No Definite Risk - Focused Exam Vital Signs: Vital Signs Temp Pulse Pulse Resp BP BP Pulse Ox 05/29/19 08:56 104 H 131/96 H 05/29/19 07:19 99 16 131/96 H 97 05/29/19 02:00 36.3 C 96 16 90/58 L 93 L 05/28/19 22:00 36.8 C 65 18 92/58 L 94 L Date Exam was Performed: 05/29/19 Time Exam was Performed: 11:33 - Problem List & Annotations (1) Acute combined systolic and diastolic CHF, NYHA class 3 SNOMED Code(s): 811261971069946, 376275578, 202484310492661 Code(s): I50.41 - ACUTE COMBINED SYSTOLIC AND DIASTOLIC (CONGESTIVE) HRT FAIL Status: Acute Current Visit: Yes (2) Elevated troponin SNOMED Code(s): 035554599, 764135110, 071201050 Code(s): R79.89 - OTHER SPECIFIED ABNORMAL FINDINGS OF BLOOD CHEMISTRY Status: Acute Current Visit: Yes (3) Ischemic cardiomyopathy SNOMED Code(s): 316176080 Code(s): I25.5 - ISCHEMIC CARDIOMYOPATHY Status: Chronic Current Visit: Yes (4) Insulin dependent diabetes mellitus SNOMED Code(s): 83895885 Code(s): E11.9 - TYPE 2 DIABETES MELLITUS WITHOUT COMPLICATIONS; Z79.4 - ASSISTED (CURRENT) USE OF INSULIN Status: Chronic Current Visit: Yes (5) Atrial fibrillation SNOMED Code(s): 95317045 Code(s): I48.91 - UNSPECIFIED ATRIAL FIBRILLATION Status: Chronic Current Visit: Yes Qualifiers: Atrial fibrillation type: permanent Qualified Code(s): I48.21 - Permanent atrial fibrillation (6) CAD (coronary artery disease) SNOMED Code(s): 42057417 Code(s): I25.10 - ATHSCL HEART DISEASE OF [place] CORONARY ARTERY W/O ANG PCTRS Status: Chronic Current Visit: No Qualifiers: Coronary Disease-Associated Artery/Lesion type: [place] artery [place] vs. transplanted heart: [place] heart Associated angina: without angina Qualified Code(s): I25.10 - Atherosclerotic heart disease of [place] coronary artery without angina pectoris (7) CKD (chronic kidney disease) stage 3, GFR 30-59 ml/min SNOMED Code(s): 440569275 Code(s): N18.3 - CHRONIC KIDNEY DISEASE, STAGE 3 (MODERATE) Status: Chronic Current Visit: No - Problem List Review Problem List Initiated/Reviewed/Updated: Yes - My Orders Last 24 Hours: My Active Orders 05/28/19 09:00 Clopidogrel [Plavix] 75 mg PO DAILY Metoprolol Succinate [Toprol XL] 25 mg PO DAILY allopurinoL [Zyloprim] 300 mg PO DAILY 05/28/19 10:05 Urinary Catheter Assessment [RC] Q12H 05/28/19 10:15 Insert Rubi Catheter [Insert Urinary Catheter] [OM.PC] Q24H 05/28/19 10:30 Bumetanide [Bumex] 2 mg IVPUSH Q12H 05/28/19 17:00 Insulin NPH/Insulin Reg,Human [HumuLIN 70-30] 10 units SUBCUT QPM 05/29/19 07:00 Echo Comp wo Cont [US] Routine 05/29/19 07:30 Insulin NPH/Insulin Reg,Human [HumuLIN 70-30] 25 units SUBCUT ACBREAKFAST 05/29/19 11:30 GLUCOSE POC LAB TO COLLECT [POC] QIDACANDBED 05/29/19 16:30 GLUCOSE POC LAB TO COLLECT [POC] QIDACANDBED 05/29/19 21:00 GLUCOSE POC LAB TO COLLECT [POC] QIDACANDBED 05/30/19 05:00 BASIC METABOLIC PANEL,BMP [CHEM] Timed CBC W/O DIFF,HEMOGRAM [HEME] Timed (1) INR,PT,PROTHROMBIN TIME [COAG] Timed 05/30/19 07:30 GLUCOSE POC LAB TO COLLECT [POC] QIDACANDBED Insulin NPH/Insulin Reg,Human [HumuLIN 70-30] 20 units SUBCUT ACBREAKFAST 05/30/19 11:30 GLUCOSE POC LAB TO COLLECT [POC] QIDACANDBED 05/30/19 16:30 GLUCOSE POC LAB TO COLLECT [POC] QIDACANDBED 05/30/19 21:00 GLUCOSE POC LAB TO COLLECT [POC] QIDACANDBED 05/31/19 07:30 GLUCOSE POC LAB TO COLLECT [POC] QIDACANDBED 05/31/19 11:30 GLUCOSE POC LAB TO COLLECT [POC] QIDACANDBED 05/31/19 16:30 GLUCOSE POC LAB TO COLLECT [POC] QIDACANDBED 05/31/19 21:00 GLUCOSE POC LAB TO COLLECT [POC] QIDACANDBED 06/01/19 07:30 GLUCOSE POC LAB TO COLLECT [POC] QIDACANDBED 06/01/19 11:30 GLUCOSE POC LAB TO COLLECT [POC] QIDACANDBED 06/01/19 16:30 GLUCOSE POC LAB TO COLLECT [POC] QIDACANDBED 06/01/19 21:00 GLUCOSE POC LAB TO COLLECT [POC] QIDACANDBED 06/02/19 07:30 GLUCOSE POC LAB TO COLLECT [POC] QIDACANDBED - Plan Plan:: ASSESSMENT AND PLAN - Acute combined systolic and diastolic congestive heart failure-complicated by hypoxic respiratory failure. Doing better with transition to bumetanide. Echocardiogram showed severely reduced left ventricular function at 25 to 30%. He has global hypokinesis consistent with his ischemic cardiomyopathy that appears worse than his previous echocardiogram. He also has severe MR and severe TR as well as grade 3 diastolic dysfunction. -Supplement oxygen -Strict intake and output monitoring -Continue bumetanide -Continue Rubi catheter for strict intake and output monitoring -Continue beta-iqra -Daily weights -Doni stockings to help with lower extremity edema Elevated troponin-Mild elevation likely reflective of heart strain with congestive heart failure and poor clearance from kidney disease. Level has continued to trend down. COPD-stable at this time. No evidence for exacerbation at this time. -Scheduled nebulizers Stage III chronic knee disease-creatinine slightly better today. -Labs in the morning with close monitoring during diuresis Insulin-dependent diabetes mellitus-blood sugars better with decreased in dose but still slightly on the low side. -Decrease NovoLog 70/30 to 20 units in the morning and 10 in the evening -Accu-Cheks 4 times daily Chronic atrial fibrillation-rate controlled at this time with his metoprolol. He is chronically anticoagulated though INR is slightly elevated today. -Hold warfarin with daily INR -Continue beta-iqra Recent nasal fracture and spinal cord contusion-has been doing well with therapy and is improving from the standpoint. Maintenance issues - - DVT prophylaxis -warfarin - GI prophylaxis -not indicated - Nutrition -consistent carbohydrate - Rubi catheter -placed 05/28 for strict intake and output monitoring in a critical patient with congestive heart failure and chronic kidney disease which is worsening Disposition -I would anticipate discharge back to the skilled nursing after the hospital stay for additional rehabilitation Wilberto Teixeira M.D.
[2019-05-29] MEDS: Bumetanide 2.5 MG/10 ML MDV IVPUSH SCH ×2 (10:39→22:34)
--- NOTE | 2019-05-29 10:52 | CRLCT ---
INDICATION: Confusion, recent head trauma COMPARISON: CT head 04/29/2019 TECHNIQUE: A CT volumetric acquisition was performed of the brain without IV contrast. Please note that all CT scans at this facility use dose modulation, iterative reconstruction, and/or weight-based dosing when appropriate to reduce radiation dose to as low as reasonably achievable. FINDINGS: Brain: [place] and white matter differentiation cortex are maintained. The bilateral caudate nuclei, lentiform nuclei, thalami midbrain estiven and the cerebellum are normal. Confluent areas of decreased attenuation throughout the white matter are seen. Ventricles/sulci: The ventricles and sulci are normal in size and configuration. There is no abnormal extra-axial fluid collection. There is no shift of midline structures. Bones: The bones of the calvarium are intact. Orbits and paranasal sinuses: The visualized paranasal sinuses are clear. Orbits are normal. IMPRESSION: 1. No acute infarct hemorrhage mass or fracture. 2. Age-related small vessel ischemic change. Please note that all CT scans at this facility use dose modulation, iterative reconstruction, and/or weight-based dosing when appropriate to reduce radiation dose to as low as reasonably achievable. Dictated by Earnest Carrera MD @ May 29 2019 10:48AM Signed by Dr. Earnest Carrera @ May 29 2019 10:52AM
[2019-05-29] MEDS: Insulin NPH/Insulin Regular,Human 70-30 100 Units/ML 10 ML Vial SUBCUT SCH (17:44)
[2019-05-29] MEDS: Melatonin 3 MG Tab PO SCH (20:19)
[2019-05-29] MEDS: atorvaSTATin 20 MG Tab PO SCH (20:20)
[2019-05-29] MEDS: Sodium Chloride 0.9% 10 ML Syringe FLUSH PRN ×2 (22:37→22:38)
[2019-05-30] MEDS: oxyCODONE 5 MG Tab PO PRN ×2 (02:01→21:36)
[2019-05-30] MEDS: Albuterol/Ipratropium 3.0-0.5 MG/3 ML Neb Soln NEB SCH ×4 (06:58→20:06)
[2019-05-30] MEDS ORDERED: Insulin NPH/Insulin Regular,Human 70-30 100 Units/ML 10 ML Vial SUBCUT SCH ×3 (07:30→17:00)
[2019-05-30] MEDS: Metoprolol Succinate 25 MG Tab.ER PO SCH (08:26)
[2019-05-30] MEDS: Clopidogrel 75 MG Tab PO SCH (08:26)
[2019-05-30] MEDS: Allopurinol 300 MG Tab PO SCH (08:26)
--- NOTE | 2019-05-30 10:44 | PCM.PN ---
- General Info Date of Service: 05/30/19 Subjective Update: No acute events overnight. Patient has not slept in several days. He continues to be confused but has not had significant agitation. He has difficulty trying to lay down in bed and he thinks this is because it makes him more short of breath. No complaints of chest pain. Gentle diuresis yesterday because of hypotension but we were able to remove some fluid. Weight is down a couple of pounds today. Creatinine is stable. No fevers. Blood sugar was low again this morning. Functional Status: Reports: Pain Controlled, Tolerating Diet - Review of Systems General: Reports: Weakness, Fatigue Pulmonary: Reports: Shortness of Breath Neurological: Reports: Confusion - Patient Data Vitals - Most Recent: Last Vital Signs Temp 35.4 C 05/30/19 07:00 Pulse 102 H 05/30/19 08:26 Resp 18 05/30/19 07:00 BP 95/60 05/30/19 08:26 Pulse Ox 95 05/30/19 08:15 Weight - Most Recent: 104.145 kg I&O - Last 24 Hours: Intake & Output 05/29/19 05/30/19 05/30/19 22:59 06:59 14:59 Intake Total 600 360 600 Output Total 500 525 Balance 100 -165 600 Lab Results Last 24 Hours: Laboratory Results - last 24 hr 05/29/19 05/30/19 05/30/19 Range/Units 15:50 04:24 04:24 WBC 9.5 (4.5-11.0) K/uL RBC 3.91 L (4.30-5.90) M/uL Hgb 10.5 L (12.0-15.0) g/dL Hct 34.4 L (40.0-54.0) % MCV 88 (80-98) fL MCH 27 (27-31) pg MCHC 31 L (32-36) % Plt Count 377 (150-400) K/uL PT 36.8 H (9.5-12.0) sec INR 3.67 H (0.80-1.20) Sodium (140-148) mmol/L Potassium (3.6-5.2) mmol/L Chloride (100-108) mmol/L Carbon Dioxide (21-32) mmol/L Anion Gap (5.0-14.0) mmol/L BUN (7-18) mg/dL Creatinine (0.8-1.3) mg/dL Est Cr Clr Drug Dosing mL/min Estimated GFR (MDRD) (>60) Glucose (74-106) mg/dL Calcium (8.5-10.1) mg/dL Urine Color [place] A (YELLOW) Urine Appearance Clear (CLEAR) Urine pH 5.5 (5.0-8.0) Ur Specific [place] 1.020 (1.008-1.030) Urine Protein Negative (NEGATIVE) mg/dL Urine Glucose (UA) Negative (NEGATIVE) mg/dL Urine Ketones Negative (NEGATIVE) mg/dL Urine Occult Blood Large H (NEGATIVE) Urine Nitrite Negative (NEGATIVE) Urine Bilirubin Negative (NEGATIVE) Urine Urobilinogen 1.0 (0.2-1.0) EU/dL Ur Leukocyte Esterase Small H (NEGATIVE) Urine RBC Semi-packed H (0-5) Urine WBC 5-10 H (0-5) Ur Epithelial Cells Not seen Amorphous Sediment Few Urine Bacteria Not seen Urine Mucus Not seen 05/30/19 Range/Units 04:24 WBC (4.5-11.0) K/uL RBC (4.30-5.90) M/uL Hgb (12.0-15.0) g/dL Hct (40.0-54.0) % MCV (80-98) fL MCH (27-31) pg MCHC (32-36) % Plt Count (150-400) K/uL PT (9.5-12.0) sec INR (0.80-1.20) Sodium 134 L (140-148) mmol/L Potassium 3.7 (3.6-5.2) mmol/L Chloride 97 L (100-108) mmol/L Carbon Dioxide 26 (21-32) mmol/L Anion Gap 14.7 H (5.0-14.0) mmol/L BUN 56 H (7-18) mg/dL Creatinine 1.8 H (0.8-1.3) mg/dL Est Cr Clr Drug Dosing 34.36 mL/min Estimated GFR (MDRD) 37 L (>60) Glucose 59 L (74-106) mg/dL Calcium 8.5 (8.5-10.1) mg/dL Urine Color (YELLOW) Urine Appearance (CLEAR) Urine pH (5.0-8.0) Ur Specific [place] (1.008-1.030) Urine Protein (NEGATIVE) mg/dL Urine Glucose (UA) (NEGATIVE) mg/dL Urine Ketones (NEGATIVE) mg/dL Urine Occult Blood (NEGATIVE) Urine Nitrite (NEGATIVE) Urine Bilirubin (NEGATIVE) Urine Urobilinogen (0.2-1.0) EU/dL Ur Leukocyte Esterase (NEGATIVE) Urine RBC (0-5) Urine WBC (0-5) Ur Epithelial Cells Amorphous Sediment Urine Bacteria Urine Mucus Med Orders - Current: Current Medications Acetaminophen (Tylenol) 650 mg PO Q4H PRN PRN Reason: Pain (Mild 1-3)/fever Albuterol (Proventil Neb Soln) 2.5 mg NEB Q4H PRN PRN Reason: Shortness Of Breath/wheezing Albuterol/Ipratropium (Duoneb 3.0-0.5 Mg/3 Ml) 3 ml NEB QIDRT [facility] Last Admin: 05/30/19 06:58 Dose: 3 ml Allopurinol (Zyloprim) 100 mg PO DAILY [facility] Atorvastatin Calcium (Lipitor) 40 mg PO BEDTIME [facility] Last Admin: 05/29/19 20:20 Dose: 40 mg Bumetanide (Bumex) 2 mg IVPUSH Q12H [facility] Last Admin: 05/29/19 22:34 Dose: 1 mg Clopidogrel Bisulfate (Plavix) 75 mg PO DAILY [facility] Last Admin: 05/30/19 08:26 Dose: 75 mg Insulin Human Isoph/Insulin Regular (Humulin 70-30) 20 units SUBCUT ACBREAKFAST [facility] Last Admin: 05/30/19 08:22 Dose: 20 units Insulin Human Isoph/Insulin Regular (Humulin 70-30) 5 units SUBCUT QPM [facility] Magnesium Hydroxide (Milk Of Magnesia) 30 ml PO Q12H PRN PRN Reason: Constipation Melatonin (Melatonin) 9 mg PO BEDTIME [facility] Last Admin: 05/29/19 20:19 Dose: 9 mg Metoprolol Succinate (Toprol Xl) 25 mg PO DAILY [facility] Last Admin: 05/30/19 08:26 Dose: 25 mg Ondansetron HCl (Zofran Odt) 4 mg PO Q6H PRN PRN Reason: Nausea able to take PO Ondansetron HCl (Zofran) 4 mg IV Q6H PRN PRN Reason: Nausea/Vomiting Oxycodone HCl (Oxycodone) 5 mg PO Q4H PRN PRN Reason: Pain Last Admin: 05/30/19 02:01 Dose: 5 mg Potassium Chloride (Klor-Con M20) 40 meq PO ONETIME ONE Stop: 05/30/19 10:41 Risperidone (Risperidal) 0.5 mg PO BEDTIME [facility] Senna/Docusate Sodium (Senna Plus) 1 tab PO BID [facility] Last Admin: 05/30/19 08:26 Dose: 1 tab Sodium Chloride (Saline Flush) 10 ml FLUSH ASDIRECTED PRN PRN Reason: Keep Vein Open Last Admin: 05/29/19 22:38 Dose: 10 ml Warfarin Sodium (Coumadin) 5 mg PO DAILY@1300 [facility] Last Admin: 05/28/19 13:38 Dose: 5 mg Discontinued Medications Allopurinol (Zyloprim) 300 mg PO DAILY [facility] Last Admin: 05/30/19 08:26 Dose: 300 mg Furosemide (Lasix) 60 mg IVPUSH ONETIME ONE Stop: 05/27/19 13:34 Last Admin: 05/27/19 14:08 Dose: 60 mg Furosemide (Lasix) 60 mg IVPUSH ONETIME ONE Stop: 05/28/19 07:01 Last Admin: 05/28/19 08:07 Dose: 60 mg Insulin Human Isoph/Insulin Regular (Humulin 70-30) 30 units SUBCUT ACBREAKFAST [facility] Last Admin: 05/28/19 08:12 Dose: 30 units Insulin Human Isoph/Insulin Regular (Humulin 70-30) 15 units SUBCUT QPM [facility] Last Admin: 05/27/19 17:56 Dose: 15 units Insulin Human Isoph/Insulin Regular (Humulin 70-30) 10 units SUBCUT QPM [facility] Last Admin: 05/29/19 17:44 Dose: 10 units Insulin Human Isoph/Insulin Regular (Humulin 70-30) 25 units SUBCUT ACBREAKFAST [facility] Last Admin: 05/29/19 07:33 Dose: 25 units Insulin Human Lispro (Humalog) 0 unit SUBCUT QIDACANDBED [facility]; Protocol Last Admin: 05/28/19 08:19 Dose: Not Given Sodium Chloride (Saline Flush) 10 ml FLUSH ASDIRECTED PRN PRN Reason: Keep Vein Open - Exam Quality Assessment: No: Supplemental Oxygen General: Alert, Cooperative, No Acute Distress. No: Oriented Lungs: Normal Respiratory Effort, Crackles (left lung base) Cardiovascular: Regular Rate, Regular Rhythm, Gallops GI/Abdominal Exam: Soft, No Distention Extremities: Pedal Edema. No: Increased Warmth Skin: Warm, Dry Psy/Mental Status: Alert. No: Agitated Sepsis Event Note - Evaluation Sepsis Screening Result: No Definite Risk - Focused Exam Vital Signs: Vital Signs Temp Pulse Pulse Resp BP BP Pulse Ox 05/30/19 08:26 102 H 95/60 05/30/19 08:15 102 H 95/60 95 05/30/19 07:00 35.4 C 62 18 78/50 L 94 L 05/30/19 06:58 98 05/30/19 02:29 35.9 C 92 16 94/51 L 94 L Date Exam was Performed: 05/30/19 Time Exam was Performed: 10:53 - Problem List & Annotations (1) Acute combined systolic and diastolic CHF, NYHA class 3 SNOMED Code(s): 560190184232368, 923929870, 181835123998959 Code(s): I50.41 - ACUTE COMBINED SYSTOLIC AND DIASTOLIC (CONGESTIVE) HRT FAIL Status: Acute Current Visit: Yes (2) Elevated troponin SNOMED Code(s): 306168171, 021752819, 874303459 Code(s): R79.89 - OTHER SPECIFIED ABNORMAL FINDINGS OF BLOOD CHEMISTRY Status: Acute Current Visit: Yes (3) Ischemic cardiomyopathy SNOMED Code(s): 409792504 Code(s): I25.5 - ISCHEMIC CARDIOMYOPATHY Status: Chronic Current Visit: Yes (4) Insulin dependent diabetes mellitus SNOMED Code(s): 78986619 Code(s): E11.9 - TYPE 2 DIABETES MELLITUS WITHOUT COMPLICATIONS; Z79.4 - MCFP (CURRENT) USE OF INSULIN Status: Chronic Current Visit: Yes (5) Atrial fibrillation SNOMED Code(s): 34712453 Code(s): I48.91 - UNSPECIFIED ATRIAL FIBRILLATION Status: Chronic Current Visit: Yes Qualifiers: Atrial fibrillation type: permanent Qualified Code(s): I48.21 - Permanent atrial fibrillation (6) CAD (coronary artery disease) SNOMED Code(s): 99384929 Code(s): I25.10 - ATHSCL HEART DISEASE OF [place] CORONARY ARTERY W/O ANG PCTRS Status: Chronic Current Visit: No Qualifiers: Coronary Disease-Associated Artery/Lesion type: [place] artery [place] vs. transplanted heart: [place] heart Associated angina: without angina Qualified Code(s): I25.10 - Atherosclerotic heart disease of [place] coronary artery without angina pectoris (7) CKD (chronic kidney disease) stage 3, GFR 30-59 ml/min SNOMED Code(s): 057594070 Code(s): N18.3 - CHRONIC KIDNEY DISEASE, STAGE 3 (MODERATE) Status: Chronic Current Visit: No - Problem List Review Problem List Initiated/Reviewed/Updated: Yes - My Orders Last 24 Hours: My Active Orders 05/30/19 07:30 Insulin NPH/Insulin Reg,Human [HumuLIN 70-30] 20 units SUBCUT ACBREAKFAST 05/30/19 10:40 Potassium Chloride [Klor-Con M20] 40 meq PO ONETIME ONE 05/30/19 11:30 GLUCOSE POC LAB TO COLLECT [POC] QIDACANDBED 05/30/19 16:30 GLUCOSE POC LAB TO COLLECT [POC] QIDACANDBED 05/30/19 17:00 Insulin NPH/Insulin Reg,Human [HumuLIN 70-30] 5 units SUBCUT QPM 05/30/19 21:00 GLUCOSE POC LAB TO COLLECT [POC] QIDACANDBED risperiDONE [RisperiDAL] 0.5 mg PO BEDTIME 05/31/19 05:00 BASIC METABOLIC PANEL,BMP [CHEM] Timed CBC W/O DIFF,HEMOGRAM [HEME] Timed (1) INR,PT,PROTHROMBIN TIME [COAG] Timed MAGNESIUM [CHEM] Timed TSH ULTRASENSITIVE [CHEM] Timed 05/31/19 07:30 GLUCOSE POC LAB TO COLLECT [POC] QIDACANDBED 05/31/19 09:00 allopurinoL [Zyloprim] 100 mg PO DAILY 05/31/19 11:30 GLUCOSE POC LAB TO COLLECT [POC] QIDACANDBED 05/31/19 16:30 GLUCOSE POC LAB TO COLLECT [POC] QIDACANDBED 05/31/19 21:00 GLUCOSE POC LAB TO COLLECT [POC] QIDACANDBED 06/01/19 07:30 GLUCOSE POC LAB TO COLLECT [POC] QIDACANDBED 06/01/19 11:30 GLUCOSE POC LAB TO COLLECT [POC] QIDACANDBED 06/01/19 16:30 GLUCOSE POC LAB TO COLLECT [POC] QIDACANDBED 06/01/19 21:00 GLUCOSE POC LAB TO COLLECT [POC] QIDACANDBED 06/02/19 07:30 GLUCOSE POC LAB TO COLLECT [POC] QIDACANDBED - Plan Plan:: ASSESSMENT AND PLAN - Acute combined systolic and diastolic congestive heart failure-complicated by hypoxic respiratory failure. Doing better with transition to bumetanide. Echocardiogram showed severely reduced left ventricular function at 25 to 30%. He has global hypokinesis consistent with his ischemic cardiomyopathy that appears worse than his previous echocardiogram. He also has severe MR and severe TR as well as grade 3 diastolic dysfunction. -Supplement oxygen -Strict intake and output monitoring -Continue bumetanide -Continue Rubi catheter for strict intake and output monitoring -Continue beta-iqra -Daily weights -Doni stockings to help with lower extremity edema COPD-stable at this time. No evidence for exacerbation at this time. -Scheduled nebulizers Stage III chronic knee disease-creatinine stable but slightly elevated from baseline. -Labs in the morning with close monitoring during diuresis Insulin-dependent diabetes mellitus-blood sugars on the low side again this morning. -Decrease NovoLog 70/30 to 20 units in the morning and 5 in the evening -Accu-Cheks 4 times daily Chronic atrial fibrillation-rate controlled at this time with his metoprolol. He is chronically anticoagulated and INR remains mildly elevated. -Hold warfarin again today with daily INR -Continue beta-iqra Recent nasal fracture and spinal cord contusion-has been doing well with therapy and is improving from the standpoint. Maintenance issues - - DVT prophylaxis -warfarin - GI prophylaxis -not indicated - Nutrition -consistent carbohydrate - Rubi catheter -placed 05/28 for strict intake and output monitoring in a critical patient with congestive heart failure and chronic kidney disease which is worsening Disposition -[facility] after [facility] hospital stay for additional rehabilitation Wilberto Teixeira M.D.
[2019-05-30] MEDS: Bumetanide 2.5 MG/10 ML MDV IVPUSH SCH ×2 (11:32→22:44)
[2019-05-30] MEDS ORDERED: Potassium Chloride 20 MEQ Tab.ER PO ONE (12:00)
[2019-05-30] MEDS: Melatonin 3 MG Tab PO SCH (20:04)
[2019-05-30] MEDS: atorvaSTATin 20 MG Tab PO SCH (20:05)
[2019-05-30] MEDS: Acetaminophen 325 MG Tab PO PRN (20:06)
[2019-05-30] MEDS ORDERED: risperiDONE 0.5 MG Tab PO SCH (21:00)
[2019-05-30] MEDS ORDERED: Haloperidol 1 MG Tab PO ONE ×2 (22:38→23:47)
[2019-05-31] MEDS: Albuterol/Ipratropium 3.0-0.5 MG/3 ML Neb Soln NEB SCH ×4 (07:18→20:08)
[2019-05-31] MEDS: Insulin NPH/Insulin Regular,Human 70-30 100 Units/ML 10 ML Vial SUBCUT SCH (08:18)
[2019-05-31] MEDS ORDERED: Haloperidol 5 MG Tab PO PRN (09:29)
--- NOTE | 2019-05-31 09:34 | PCM.PN ---
- General Info Date of Service: 05/31/19 Subjective Update: Patient was confused and slightly agitated overnight. He did not sleep for any notable length of time overnight. He does report that his shortness of breath is a little better today. Edema is a little better today. No complaints of chest pain. Not much of an appetite. Kidney function has been stable. Seems a little less confused today. Functional Status: Reports: Pain Controlled, Tolerating Diet - Review of Systems General: Reports: Weakness Cardiovascular: Reports: Edema Neurological: Reports: Confusion - Patient Data Vitals - Most Recent: Last Vital Signs Temp 35.8 C 05/31/19 07:00 Pulse 115 H 05/31/19 07:55 Resp 18 05/31/19 07:55 BP 120/68 05/31/19 07:55 Pulse Ox 95 05/31/19 07:55 Weight - Most Recent: 106.594 kg I&O - Last 24 Hours: Intake & Output 05/30/19 05/31/19 05/31/19 22:59 06:59 14:59 Intake Total 550 240 Output Total 550 600 Balance 0 -600 240 Lab Results Last 24 Hours: Laboratory Results - last 24 hr 05/31/19 05/31/19 05/31/19 Range/Units 04:42 04:42 04:42 WBC 9.9 (4.5-11.0) K/uL RBC 3.87 L (4.30-5.90) M/uL Hgb 10.3 L (12.0-15.0) g/dL Hct 34.1 L (40.0-54.0) % MCV 88 (80-98) fL MCH 27 (27-31) pg MCHC 30 L (32-36) % Plt Count 372 (150-400) K/uL PT 38.0 H (9.5-12.0) sec INR 3.79 H (0.80-1.20) Sodium 134 L (140-148) mmol/L Potassium 3.9 (3.6-5.2) mmol/L Chloride 97 L (100-108) mmol/L Carbon Dioxide 29 (21-32) mmol/L Anion Gap 11.9 (5.0-14.0) mmol/L BUN 57 H (7-18) mg/dL Creatinine 1.8 H (0.8-1.3) mg/dL Est Cr Clr Drug Dosing 34.36 mL/min Estimated GFR (MDRD) 37 L (>60) Glucose 110 H (74-106) mg/dL Calcium 8.5 (8.5-10.1) mg/dL Magnesium 2.3 (1.8-2.4) mg/dL TSH, Ultra Sensitive 3.950 H (0.358-3.740) uIU/mL Med Orders - Current: Current Medications Acetaminophen (Tylenol) 650 mg PO Q4H PRN PRN Reason: Pain (Mild 1-3)/fever Last Admin: 05/30/19 20:06 Dose: 650 mg Albuterol (Proventil Neb Soln) 2.5 mg NEB Q4H PRN PRN Reason: Shortness Of Breath/wheezing Albuterol/Ipratropium (Duoneb 3.0-0.5 Mg/3 Ml) 3 ml NEB QIDRT [facility] Last Admin: 05/31/19 07:18 Dose: 3 ml Allopurinol (Zyloprim) 100 mg PO DAILY [facility] Atorvastatin Calcium (Lipitor) 40 mg PO BEDTIME [facility] Last Admin: 05/30/19 20:05 Dose: 40 mg Bumetanide (Bumex) 2 mg IVPUSH Q12H [facility] Last Admin: 05/30/19 22:44 Dose: 2 mg Clopidogrel Bisulfate (Plavix) 75 mg PO DAILY [facility] Last Admin: 05/30/19 08:26 Dose: 75 mg Insulin Human Isoph/Insulin Regular (Humulin 70-30) 20 units SUBCUT ACBREAKFAST [facility] Last Admin: 05/31/19 08:18 Dose: 20 units Magnesium Hydroxide (Milk Of Magnesia) 30 ml PO Q12H PRN PRN Reason: Constipation Melatonin (Melatonin) 9 mg PO BEDTIME [facility] Last Admin: 05/30/19 20:04 Dose: 9 mg Metoprolol Succinate (Toprol Xl) 25 mg PO DAILY [facility] Last Admin: 05/30/19 08:26 Dose: 25 mg Ondansetron HCl (Zofran Odt) 4 mg PO Q6H PRN PRN Reason: Nausea able to take PO Ondansetron HCl (Zofran) 4 mg IV Q6H PRN PRN Reason: Nausea/Vomiting Oxycodone HCl (Oxycodone) 5 mg PO Q4H PRN PRN Reason: Pain Last Admin: 05/30/19 21:36 Dose: 5 mg Senna/Docusate Sodium (Senna Plus) 1 tab PO BID [facility] Last Admin: 05/30/19 20:05 Dose: 1 tab Sodium Chloride (Saline Flush) 10 ml FLUSH ASDIRECTED PRN PRN Reason: Keep Vein Open Last Admin: 05/29/19 22:38 Dose: 10 ml Discontinued Medications Allopurinol (Zyloprim) 300 mg PO DAILY [facility] Last Admin: 05/30/19 08:26 Dose: 300 mg Furosemide (Lasix) 60 mg IVPUSH ONETIME ONE Stop: 05/27/19 13:34 Last Admin: 05/27/19 14:08 Dose: 60 mg Furosemide (Lasix) 60 mg IVPUSH ONETIME ONE Stop: 05/28/19 07:01 Last Admin: 05/28/19 08:07 Dose: 60 mg Haloperidol (Haldol) 1 mg PO ONETIME ONE Stop: 05/30/19 22:39 Last Admin: 05/30/19 22:49 Dose: 1 mg Haloperidol (Haldol) 1 mg PO ONETIME ONE Stop: 05/30/19 23:48 Last Admin: 05/31/19 00:04 Dose: 1 mg Insulin Human Isoph/Insulin Regular (Humulin 70-30) 30 units SUBCUT ACBREAKFAST [facility] Last Admin: 05/28/19 08:12 Dose: 30 units Insulin Human Isoph/Insulin Regular (Humulin 70-30) 15 units SUBCUT QPM [facility] Last Admin: 05/27/19 17:56 Dose: 15 units Insulin Human Isoph/Insulin Regular (Humulin 70-30) 10 units SUBCUT QPM [facility] Last Admin: 05/29/19 17:44 Dose: 10 units Insulin Human Isoph/Insulin Regular (Humulin 70-30) 25 units SUBCUT ACBREAKFAST [facility] Last Admin: 05/29/19 07:33 Dose: 25 units Insulin Human Isoph/Insulin Regular (Humulin 70-30) 20 units SUBCUT ACBREAKFAST [facility] Last Admin: 05/30/19 08:22 Dose: 20 units Insulin Human Isoph/Insulin Regular (Humulin 70-30) 5 units SUBCUT QPM [facility] Last Admin: 05/30/19 17:37 Dose: 5 units Insulin Human Lispro (Humalog) 0 unit SUBCUT QIDACANDBED [facility]; Protocol Last Admin: 05/28/19 08:19 Dose: Not Given Potassium Chloride (Klor-Con M20) 40 meq PO ONETIME ONE Stop: 05/30/19 12:01 Last Admin: 05/30/19 11:32 Dose: 40 meq Risperidone (Risperidal) 0.5 mg PO BEDTIME [facility] Last Admin: 05/30/19 20:05 Dose: 0.5 mg Sodium Chloride (Saline Flush) 10 ml FLUSH ASDIRECTED PRN PRN Reason: Keep Vein Open Warfarin Sodium (Coumadin) 5 mg PO DAILY@1300 [facility] Last Admin: 05/28/19 13:38 Dose: 5 mg - Exam Quality Assessment: Supplemental Oxygen General: Alert, Oriented, Cooperative, No Acute Distress Lungs: Clear to Auscultation, Normal Respiratory Effort Cardiovascular: Regular Rate, Irregular Rhythm GI/Abdominal Exam: Soft, No Distention Extremities: Pedal Edema Psy/Mental Status: Alert, Normal Affect Sepsis Event Note - Evaluation Sepsis Screening Result: No Definite Risk - Focused Exam Vital Signs: Vital Signs Temp Pulse Resp BP Pulse Ox Pulse Ox 05/31/19 07:55 115 H 18 120/68 95 05/31/19 07:19 106 H 96 05/31/19 07:00 35.8 C 106 H 18 97 05/31/19 05:05 36.2 C 85 18 101/73 94 L 05/31/19 02:40 35.7 C 107 H 18 95/55 L 97 05/30/19 22:27 35.9 C 109 H 20 104/56 L 92 L Date Exam was Performed: 05/31/19 Time Exam was Performed: 11:11 - Problem List & Annotations (1) Acute combined systolic and diastolic CHF, NYHA class 3 SNOMED Code(s): 961564699508965, 390941717, 817130652721171 Code(s): I50.41 - ACUTE COMBINED SYSTOLIC AND DIASTOLIC (CONGESTIVE) HRT FAIL Status: Acute Current Visit: Yes (2) Elevated troponin SNOMED Code(s): 514313114, 935544142, 880040335 Code(s): R79.89 - OTHER SPECIFIED ABNORMAL FINDINGS OF BLOOD CHEMISTRY Status: Acute Current Visit: Yes (3) Ischemic cardiomyopathy SNOMED Code(s): 340818145 Code(s): I25.5 - ISCHEMIC CARDIOMYOPATHY Status: Chronic Current Visit: Yes (4) Insulin dependent diabetes mellitus SNOMED Code(s): 34758444 Code(s): E11.9 - TYPE 2 DIABETES MELLITUS WITHOUT COMPLICATIONS; Z79.4 - HALFWAY (CURRENT) USE OF INSULIN Status: Chronic Current Visit: Yes (5) Atrial fibrillation SNOMED Code(s): 49424464 Code(s): I48.91 - UNSPECIFIED ATRIAL FIBRILLATION Status: Chronic Current Visit: Yes Qualifiers: Atrial fibrillation type: permanent Qualified Code(s): I48.21 - Permanent atrial fibrillation (6) CAD (coronary artery disease) SNOMED Code(s): 08856056 Code(s): I25.10 - ATHSCL HEART DISEASE OF [place] CORONARY ARTERY W/O ANG PCTRS Status: Chronic Current Visit: No Qualifiers: Coronary Disease-Associated Artery/Lesion type: [place] artery [place] vs. transplanted heart: [place] heart Associated angina: without angina Qualified Code(s): I25.10 - Atherosclerotic heart disease of [place] coronary artery without angina pectoris (7) CKD (chronic kidney disease) stage 3, GFR 30-59 ml/min SNOMED Code(s): 634199732 Code(s): N18.3 - CHRONIC KIDNEY DISEASE, STAGE 3 (MODERATE) Status: Chronic Current Visit: No - Problem List Review Problem List Initiated/Reviewed/Updated: Yes - My Orders Last 24 Hours: My Active Orders 05/31/19 07:30 Insulin NPH/Insulin Reg,Human [HumuLIN 70-30] 20 units SUBCUT ACBREAKFAST 05/31/19 09:00 allopurinoL [Zyloprim] 100 mg PO DAILY 05/31/19 09:29 haloperidoL [Haldol] 2.5 mg PO Q4H PRN 05/31/19 09:31 T4 FREE [CHEM] Routine 05/31/19 10:15 Insert Rubi Catheter [Insert Urinary Catheter] [OM.PC] Q24H 05/31/19 11:30 GLUCOSE POC LAB TO COLLECT [POC] QIDACANDBED 05/31/19 16:30 GLUCOSE POC LAB TO COLLECT [POC] QIDACANDBED 05/31/19 21:00 GLUCOSE POC LAB TO COLLECT [POC] QIDACANDBED risperiDONE [RisperiDAL] 1 mg PO BEDTIME 06/01/19 05:00 BASIC METABOLIC PANEL,BMP [CHEM] Timed INR,PT,PROTHROMBIN TIME [COAG] Timed 06/01/19 07:30 GLUCOSE POC LAB TO COLLECT [POC] QIDACANDBED 06/01/19 11:30 GLUCOSE POC LAB TO COLLECT [POC] QIDACANDBED 06/01/19 16:30 GLUCOSE POC LAB TO COLLECT [POC] QIDACANDBED 06/01/19 21:00 GLUCOSE POC LAB TO COLLECT [POC] QIDACANDBED 06/02/19 07:30 GLUCOSE POC LAB TO COLLECT [POC] QIDACANDBED - Plan Plan:: ASSESSMENT AND PLAN - Acute combined systolic and diastolic congestive heart failure-complicated by hypoxic respiratory failure. Doing better with transition to bumetanide. Echocardiogram showed severely reduced left ventricular function at 25 to 30%. He has global hypokinesis consistent with his ischemic cardiomyopathy that appears worse than his previous echocardiogram. He also has severe MR and severe TR as well as grade 3 diastolic dysfunction. Slowly improving with diuresis but still has a fair amount of fluid to be removed. -Supplement oxygen -Strict intake and output monitoring -Continue bumetanide -Continue Rubi catheter for strict intake and output monitoring -Continue beta-iqra -Daily weights -Doni stockings to help with lower extremity edema COPD-stable at this time. No evidence for exacerbation at this time. -Scheduled nebulizers Stage III chronic knee disease-creatinine has remained stable but slightly elevated from baseline. -Labs in the morning with close monitoring during diuresis Insulin-dependent diabetes mellitus-blood sugars on the low side last night but acceptable this morning -Decrease NovoLog 70/30 to 20 units in the morning -discontinue evening dose of 70/30 -Accu-Cheks 4 times daily Chronic atrial fibrillation-rate controlled at this time with his metoprolol. He is chronically anticoagulated and INR remains mildly elevated. -Hold warfarin again today with daily INR -Continue beta-iqra Recent nasal fracture and spinal cord contusion-has been doing well with therapy and is improving from the standpoint. Maintenance issues - - DVT prophylaxis -warfarin - GI prophylaxis -not indicated - Nutrition -consistent carbohydrate - Rubi catheter -placed 05/28 for strict intake and output monitoring in a critical patient with congestive heart failure and chronic kidney disease Disposition -I would anticipate discharge back to the care home after the hospital stay for additional rehabilitation Wilberto Teixeira M.D.
[2019-05-31] MEDS: Clopidogrel 75 MG Tab PO SCH (10:01)
[2019-05-31] MEDS: Metoprolol Succinate 25 MG Tab.ER PO SCH (10:01)
[2019-05-31] MEDS: Allopurinol 100 MG Tab PO SCH (10:02)
[2019-05-31] MEDS: Bumetanide 2.5 MG/10 ML MDV IVPUSH SCH ×2 (10:03→21:54)
[2019-05-31] MEDS: oxyCODONE 5 MG Tab PO PRN (18:18)
[2019-05-31] MEDS: Acetaminophen 325 MG Tab PO PRN (19:43)
[2019-05-31] MEDS: Melatonin 3 MG Tab PO SCH (20:02)
[2019-05-31] MEDS: atorvaSTATin 20 MG Tab PO SCH (20:02)
[2019-05-31] MEDS ORDERED: risperiDONE 0.5 MG Tab PO SCH (21:00)
[2019-05-31] MEDS: Haloperidol 5 MG Tab PO PRN (21:51)
[2019-06-01] MEDS: Albuterol/Ipratropium 3.0-0.5 MG/3 ML Neb Soln NEB SCH ×4 (07:21→20:19)
[2019-06-01] MEDS: Insulin NPH/Insulin Regular,Human 70-30 100 Units/ML 10 ML Vial SUBCUT SCH (08:38)
[2019-06-01] MEDS: Acetaminophen 325 MG Tab PO PRN ×2 (08:42→19:51)
[2019-06-01] MEDS: oxyCODONE 5 MG Tab PO PRN ×2 (08:42→19:51)
[2019-06-01] MEDS: Clopidogrel 75 MG Tab PO SCH (08:43)
[2019-06-01] MEDS: Allopurinol 100 MG Tab PO SCH (08:43)
[2019-06-01] MEDS: Metoprolol Succinate 25 MG Tab.ER PO SCH (08:44)
[2019-06-01] MEDS ORDERED: Phytonadione ORAL 5mg/5ml Soln Simple Syrup U/D PO ONE (09:00)
--- NOTE | 2019-06-01 11:12 | PCM.PN ---
- General Info Date of Service: 06/01/19 Subjective Update: No acute events overnight. Patient did have some agitation yesterday afternoon but responded well to low-dose Haldol. He was able to get some sleep last night and slept for nearly 5 hours. No complaints of shortness of breath at rest but he does get winded with activity. No reports of chest pain. Blood sugars mildly elevated. Kidney function slightly worse today than yesterday. Not a good response to IV push diuresis. Functional Status: Reports: Pain Controlled, Tolerating Diet - Review of Systems General: Reports: Weakness Cardiovascular: Denies: Chest Pain Neurological: Reports: Confusion - Patient Data Vitals - Most Recent: Last Vital Signs Temp 35.4 C 06/01/19 08:08 Pulse 116 H 06/01/19 08:44 Resp 16 06/01/19 08:08 BP 107/55 L 06/01/19 08:44 Pulse Ox 92 L 06/01/19 08:08 Weight - Most Recent: 106.64 kg I&O - Last 24 Hours: Intake & Output 05/31/19 06/01/19 06/01/19 22:59 06:59 14:59 Intake Total 900 1060 Output Total 450 250 Balance 900 -450 810 Lab Results Last 24 Hours: Laboratory Results - last 24 hr 06/01/19 06/01/19 Range/Units 04:30 04:30 PT 42.2 H (9.5-12.0) sec INR 4.24 H* (0.80-1.20) Sodium 134 L (140-148) mmol/L Potassium 4.2 (3.6-5.2) mmol/L Chloride 98 L (100-108) mmol/L Carbon Dioxide 26 (21-32) mmol/L Anion Gap 14.2 H (5.0-14.0) mmol/L BUN 67 H (7-18) mg/dL Creatinine 2.1 H (0.8-1.3) mg/dL Est Cr Clr Drug Dosing 29.45 mL/min Estimated GFR (MDRD) 31 L (>60) Glucose 171 H (74-106) mg/dL Calcium 8.3 L (8.5-10.1) mg/dL Med Orders - Current: Current Medications Acetaminophen (Tylenol) 650 mg PO Q4H PRN PRN Reason: Pain (Mild 1-3)/fever Last Admin: 06/01/19 08:42 Dose: 650 mg Albuterol (Proventil Neb Soln) 2.5 mg NEB Q4H PRN PRN Reason: Shortness Of Breath/wheezing Albuterol/Ipratropium (Duoneb 3.0-0.5 Mg/3 Ml) 3 ml NEB QIDRT [facility] Last Admin: 06/01/19 07:21 Dose: 3 ml Allopurinol (Zyloprim) 100 mg PO DAILY [facility] Last Admin: 06/01/19 08:43 Dose: 100 mg Atorvastatin Calcium (Lipitor) 40 mg PO BEDTIME [facility] Last Admin: 05/31/19 20:02 Dose: 40 mg Clopidogrel Bisulfate (Plavix) 75 mg PO DAILY [facility] Last Admin: 06/01/19 08:43 Dose: 75 mg Haloperidol (Haldol) 5 mg PO Q4H PRN PRN Reason: Agitation Last Admin: 05/31/19 21:51 Dose: 5 mg Magnesium Hydroxide (Milk Of Magnesia) 30 ml PO Q12H PRN PRN Reason: Constipation Melatonin (Melatonin) 9 mg PO BEDTIME [facility] Last Admin: 05/31/19 20:02 Dose: 9 mg Metoprolol Succinate (Toprol Xl) 25 mg PO DAILY [facility] Last Admin: 06/01/19 08:44 Dose: 25 mg Ondansetron HCl (Zofran Odt) 4 mg PO Q6H PRN PRN Reason: Nausea able to take PO Ondansetron HCl (Zofran) 4 mg IV Q6H PRN PRN Reason: Nausea/Vomiting Oxycodone HCl (Oxycodone) 5 mg PO Q4H PRN PRN Reason: Pain Last Admin: 06/01/19 08:42 Dose: 5 mg Risperidone (Risperidal) 1 mg PO BEDTIME [facility] Senna/Docusate Sodium (Senna Plus) 1 tab PO BID [facility] Last Admin: 06/01/19 08:42 Dose: 1 tab Sodium Chloride (Saline Flush) 10 ml FLUSH ASDIRECTED PRN PRN Reason: Keep Vein Open Last Admin: 05/29/19 22:38 Dose: 10 ml Discontinued Medications Allopurinol (Zyloprim) 300 mg PO DAILY [facility] Last Admin: 05/30/19 08:26 Dose: 300 mg Bumetanide (Bumex) 2 mg IVPUSH Q12H [facility] Last Admin: 05/31/19 21:54 Dose: 2 mg Furosemide (Lasix) 60 mg IVPUSH ONETIME ONE Stop: 05/27/19 13:34 Last Admin: 05/27/19 14:08 Dose: 60 mg Furosemide (Lasix) 60 mg IVPUSH ONETIME ONE Stop: 05/28/19 07:01 Last Admin: 05/28/19 08:07 Dose: 60 mg Haloperidol (Haldol) 1 mg PO ONETIME ONE Stop: 05/30/19 22:39 Last Admin: 05/30/19 22:49 Dose: 1 mg Haloperidol (Haldol) 1 mg PO ONETIME ONE Stop: 05/30/19 23:48 Last Admin: 05/31/19 00:04 Dose: 1 mg Haloperidol (Haldol) 2.5 mg PO Q4H PRN PRN Reason: Agitation Last Admin: 05/31/19 17:02 Dose: 2.5 mg Insulin Human Isoph/Insulin Regular (Humulin 70-30) 30 units SUBCUT ACBREAKFAST [facility] Last Admin: 05/28/19 08:12 Dose: 30 units Insulin Human Isoph/Insulin Regular (Humulin 70-30) 15 units SUBCUT QPM [facility] Last Admin: 05/27/19 17:56 Dose: 15 units Insulin Human Isoph/Insulin Regular (Humulin 70-30) 10 units SUBCUT QPM [facility] Last Admin: 05/29/19 17:44 Dose: 10 units Insulin Human Isoph/Insulin Regular (Humulin 70-30) 25 units SUBCUT ACBREAKFAST [facility] Last Admin: 05/29/19 07:33 Dose: 25 units Insulin Human Isoph/Insulin Regular (Humulin 70-30) 20 units SUBCUT ACBREAKFAST [facility] Last Admin: 05/30/19 08:22 Dose: 20 units Insulin Human Isoph/Insulin Regular (Humulin 70-30) 5 units SUBCUT QPM [facility] Last Admin: 05/30/19 17:37 Dose: 5 units Insulin Human Isoph/Insulin Regular (Humulin 70-30) 20 units SUBCUT ACBREAKFAST [facility] Last Admin: 06/01/19 08:38 Dose: 20 units Insulin Human Lispro (Humalog) 0 unit SUBCUT QIDACANDBED [facility]; Protocol Last Admin: 05/28/19 08:19 Dose: Not Given Phytonadione (Aquamephyton) 2.5 mg PO ONETIME ONE Stop: 06/01/19 09:01 Last Admin: 06/01/19 09:27 Dose: 2.5 mg Potassium Chloride (Klor-Con M20) 40 meq PO ONETIME ONE Stop: 05/30/19 12:01 Last Admin: 05/30/19 11:32 Dose: 40 meq Risperidone (Risperidal) 0.5 mg PO BEDTIME [facility] Last Admin: 05/30/19 20:05 Dose: 0.5 mg Risperidone (Risperidal) 1 mg PO BEDTIME [facility] Last Admin: 05/31/19 20:02 Dose: 1 mg Sodium Chloride (Saline Flush) 10 ml FLUSH ASDIRECTED PRN PRN Reason: Keep Vein Open Warfarin Sodium (Coumadin) 5 mg PO DAILY@1300 [facility] Last Admin: 05/28/19 13:38 Dose: 5 mg - Exam Quality Assessment: No: Supplemental Oxygen General: Alert, Cooperative, No Acute Distress. No: Oriented HEENT: Pupils Equal Neck: JVD Lungs: Normal Respiratory Effort, Crackles (few both bases) Cardiovascular: Regular Rate, Irregular Rhythm, Gallops GI/Abdominal Exam: Soft, No Distention Extremities: Pedal Edema (massive pitting edema to the waist bilaterally ), Increased Warmth (mild warmth both lower legs ) Skin: Warm, Dry Psy/Mental Status: Alert, Normal Affect Sepsis Event Note - Evaluation Sepsis Screening Result: No Definite Risk - Focused Exam Vital Signs: Vital Signs Temp Pulse Pulse Resp BP BP BP 06/01/19 08:44 116 H 107/55 L 06/01/19 08:08 35.4 C 116 H 16 107/55 L 06/01/19 07:21 95 06/01/19 05:35 100 20 97/46 L Pulse Ox Pulse Ox 06/01/19 08:44 06/01/19 08:08 92 L 06/01/19 07:21 95 06/01/19 05:35 94 L Date Exam was Performed: 06/01/19 Time Exam was Performed: 14:53 - Problem List & Annotations (1) Acute combined systolic and diastolic CHF, NYHA class 3 SNOMED Code(s): 398256328012918, 951077513, 214489106205186 Code(s): I50.41 - ACUTE COMBINED SYSTOLIC AND DIASTOLIC (CONGESTIVE) HRT FAIL Status: Acute Current Visit: Yes (2) Elevated troponin SNOMED Code(s): 713024477, 723336224, 228265458 Code(s): R79.89 - OTHER SPECIFIED ABNORMAL FINDINGS OF BLOOD CHEMISTRY Status: Acute Current Visit: Yes (3) Ischemic cardiomyopathy SNOMED Code(s): 849030213 Code(s): I25.5 - ISCHEMIC CARDIOMYOPATHY Status: Chronic Current Visit: Yes (4) Insulin dependent diabetes mellitus SNOMED Code(s): 84854032 Code(s): E11.9 - TYPE 2 DIABETES MELLITUS WITHOUT COMPLICATIONS; Z79.4 - 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 transplanted heart: [place] heart Associated angina: without angina Qualified Code(s): I25.10 - Atherosclerotic heart disease of [place] coronary artery without angina pectoris (7) CKD (chronic kidney disease) stage 3, GFR 30-59 ml/min SNOMED Code(s): 655356436 Code(s): N18.3 - CHRONIC KIDNEY DISEASE, STAGE 3 (MODERATE) Status: Chronic Current Visit: No - Problem List Review Problem List Initiated/Reviewed/Updated: Yes - My Orders Last 24 Hours: My Active Orders 05/31/19 10:15 Insert Rubi Catheter [Insert Urinary Catheter] [OM.PC] Q24H 05/31/19 21:18 haloperidoL [Haldol] 5 mg PO Q4H PRN 06/01/19 11:15 Bumetanide Drip 10 MG in D5W @ 0.5 MG/HR(100ml) Bumetanide [Bumex] 10 mg Dextrose 5% in Water 60 ml IV TITRATE 06/01/19 11:30 GLUCOSE POC LAB TO COLLECT [POC] QIDACANDBED 06/01/19 12:00 Bumetanide [Bumex] 1 mg IVPUSH ONETIME ONE 06/01/19 16:30 GLUCOSE POC LAB TO COLLECT [POC] QIDACANDBED 06/01/19 21:00 GLUCOSE POC LAB TO COLLECT [POC] QIDACANDBED risperiDONE [RisperiDAL] 1 mg PO BEDTIME 06/02/19 05:00 BASIC METABOLIC PANEL,BMP [CHEM] Timed CBC W/O DIFF,HEMOGRAM [HEME] Timed (1) INR,PT,PROTHROMBIN TIME [COAG] Timed 06/02/19 07:30 GLUCOSE POC LAB TO COLLECT [POC] QIDACANDBED Insulin NPH/Insulin Reg,Human [HumuLIN 70-30] 25 units SUBCUT ACBREAKFAST - Plan Plan:: ASSESSMENT AND PLAN - Acute combined systolic and diastolic congestive heart failure-complicated by hypoxic respiratory failure. Echocardiogram with EF at 25 to 30%. He has global hypokinesis consistent with his ischemic cardiomyopathy and severe MR and severe TR as well as grade 3 diastolic dysfunction. Not responding to diuresis well and creatinine slowly rising. -Supplement oxygen -Strict intake and output monitoring -Transition to bumetanide infusion -Continue Rubi catheter for strict intake and output monitoring -Continue beta-iqra -Daily weights -Doni stockings to help with lower extremity edema COPD-stable at this time. No evidence for exacerbation at this time. -Scheduled nebulizers Stage III chronic knee disease-creatinine has risen slowly over the past couple of days and he is no longer responding to diuresis. -Labs in the morning with close monitoring during diuresis Insulin-dependent diabetes mellitus-blood sugars mildly elevated. -Decrease NovoLog 70/30 to 25 units in the morning -Accu-Cheks 4 times daily Chronic atrial fibrillation-rate controlled at this time with his metoprolol. He is chronically anticoagulated and INR has been slowly climbing. -Vitamin K 2.5 mg this morning -Hold warfarin again today with daily INR -Continue beta-iqra Recent nasal fracture and spinal cord contusion-has been doing well with therapy and is improving from the standpoint. Maintenance issues - - DVT prophylaxis -warfarin - GI prophylaxis -not indicated - Nutrition -consistent carbohydrate - Rubi catheter -placed 05/28 for strict intake and output monitoring in a critical patient with congestive heart failure and chronic kidney disease. The catheter will remain in place to help titrate bumetanide dosing. Disposition -I would anticipate discharge back to the senior living after the hospital stay for additional rehabilitation Wilberto Teixeira M.D.
[2019-06-01] MEDS ORDERED: Bumetanide 1 MG/4 ML MDV IVPUSH ONE ×2 (12:00→16:00)
[2019-06-01] MEDS: Bumetanide 2.5 MG/10 ML MDV IVPUSH SCH (12:24)
[2019-06-01] MEDS ORDERED: Haloperidol Lactate 5 MG/ML SDV IVPUSH ONE (19:29)
[2019-06-01] MEDS: Melatonin 3 MG Tab PO SCH (20:19)
[2019-06-01] MEDS: atorvaSTATin 20 MG Tab PO SCH (20:19)
[2019-06-01] MEDS ORDERED: risperiDONE 1 MG Tab PO SCH (21:00)
[2019-06-01] MEDS: Morphine 2 MG/ML Syringe IVPUSH PRN (22:06)
[2019-06-01] MEDS: Haloperidol 5 MG Tab PO PRN (23:20)
[2019-06-02] MEDS: Morphine 2 MG/ML Syringe IVPUSH PRN ×3 (00:06→14:53)
[2019-06-02] MEDS: oxyCODONE 5 MG Tab PO PRN (00:24)
[2019-06-02] MEDS: Haloperidol Lactate 5 MG/ML SDV IVPUSH PRN ×2 (00:50→18:42)
[2019-06-02] MEDS: Albuterol/Ipratropium 3.0-0.5 MG/3 ML Neb Soln NEB SCH ×3 (07:02→14:23)
[2019-06-02] MEDS: Insulin NPH/Insulin Regular,Human 70-30 100 Units/ML 10 ML Vial SUBCUT SCH ×2 (08:54→09:47)
[2019-06-02] MEDS: Clopidogrel 75 MG Tab PO SCH (09:41)
[2019-06-02] MEDS: Allopurinol 100 MG Tab PO SCH (09:41)
[2019-06-02] MEDS: Metoprolol Succinate 25 MG Tab.ER PO SCH (09:41)
[2019-06-02] MEDS ORDERED: predniSONE 20 MG Tab PO ONE (10:00)
[2019-06-02] MEDS ORDERED: Divalproex Sodium Delayed-Release 250 MG Tab.CR PO ONE (16:15)
[2019-06-02] MEDS ORDERED: Bumetanide 2.5 MG/10 ML MDV IVPUSH ONE (16:20)
[2019-06-02] MEDS ORDERED: Morphine 10 MG/0.5 ML Oral Syringe PO PRN (17:09)
--- NOTE | 2019-06-02 17:13 | PCM.PN ---
- General Info Date of Service: 06/02/19 Subjective Update: There were multiple difficulties overnight. Patient was started on a bumetanide infusion yesterday and this was titrated up to the maximum. Initially there was a decent response but over the next several hours his output trailed off and was very minimal. Once the maximum dose was reached without much of a benefit we elected to discontinue the bumetanide infusion. Overnight he had significant difficulties with agitation and restlessness. He did finally get a little sleep after a larger dose of IV Haldol. This morning he was very lethargic and unable to communicate. Respiratory status seems to be declining with increased respiratory rate and suboptimal oxygenation. Situation was discussed with his power of civil litigation attorney and who needed to confer with additional family members. Patient did have a decent middle portion of the day but now is very agitated and restless and delirious again. The decision has been made to transition to comfort cares. Patient is not leaving on supplemental oxygen and has pulled out his IV. - Patient Data Vitals - Most Recent: Last Vital Signs Temp 35.6 C 06/02/19 16:00 Pulse 83 06/02/19 16:00 Resp 28 H 06/02/19 16:00 BP 95/48 L 06/02/19 16:00 Pulse Ox 93 L 06/02/19 16:00 Weight - Most Recent: 110.7 kg I&O - Last 24 Hours: Intake & Output 06/02/19 06/02/19 06/02/19 06:59 14:59 22:59 Intake Total 100 780 Output Total 200 250 Balance -100 780 -250 Lab Results Last 24 Hours: Laboratory Results - last 24 hr 06/02/19 06/02/19 06/02/19 Range/Units 05:30 05:30 05:30 WBC 12.8 H (4.5-11.0) K/uL RBC 3.86 L (4.30-5.90) M/uL Hgb 10.2 L (12.0-15.0) g/dL Hct 34.4 L (40.0-54.0) % MCV 89 (80-98) fL MCH 26 L (27-31) pg MCHC 30 L (32-36) % Plt Count 334 (150-400) K/uL PT 19.3 H (9.5-12.0) sec INR 1.85 H D (0.80-1.20) Sodium 133 L (140-148) mmol/L Potassium 4.3 (3.6-5.2) mmol/L Chloride 98 L (100-108) mmol/L Carbon Dioxide 28 (21-32) mmol/L Anion Gap 11.3 (5.0-14.0) mmol/L BUN 74 H (7-18) mg/dL Creatinine 2.2 H (0.8-1.3) mg/dL Est Cr Clr Drug Dosing 28.11 mL/min Estimated GFR (MDRD) 29 L (>60) Glucose 172 H (74-106) mg/dL Calcium 8.3 L (8.5-10.1) mg/dL Med Orders - Current: Current Medications Acetaminophen (Tylenol) 650 mg PO Q4H PRN PRN Reason: Pain (Mild 1-3)/fever Last Admin: 06/01/19 19:51 Dose: 650 mg Allopurinol (Zyloprim) 100 mg PO DAILY [facility] Last Admin: 06/02/19 09:41 Dose: 100 mg Atorvastatin Calcium (Lipitor) 40 mg PO BEDTIME [facility] Last Admin: 06/01/19 20:19 Dose: 40 mg Clopidogrel Bisulfate (Plavix) 75 mg PO DAILY [facility] Last Admin: 06/02/19 09:41 Dose: 75 mg Haloperidol Lactate (Haldol) 5 mg IVPUSH Q4H PRN PRN Reason: severe agitation Last Admin: 06/02/19 00:50 Dose: 5 mg Ondansetron HCl (Zofran Odt) 4 mg PO Q6H PRN PRN Reason: Nausea able to take PO Oxycodone HCl (Oxycodone) 5 mg PO Q4H PRN PRN Reason: Pain Last Admin: 06/02/19 00:24 Dose: 5 mg Sodium Chloride (Saline Flush) 10 ml FLUSH ASDIRECTED PRN PRN Reason: Keep Vein Open Last Admin: 05/29/19 22:38 Dose: 10 ml Discontinued Medications Albuterol (Proventil Neb Soln) 2.5 mg NEB Q4H PRN PRN Reason: Shortness Of Breath/wheezing Albuterol/Ipratropium (Duoneb 3.0-0.5 Mg/3 Ml) 3 ml NEB QIDRT [facility] Last Admin: 06/02/19 14:23 Dose: 3 ml Allopurinol (Zyloprim) 300 mg PO DAILY [facility] Last Admin: 05/30/19 08:26 Dose: 300 mg Bumetanide (Bumex) 2 mg IVPUSH Q12H [facility] Last Admin: 06/01/19 12:24 Dose: Not Given Bumetanide (Bumex) 1 mg IVPUSH ONETIME ONE Stop: 06/01/19 12:01 Last Admin: 06/01/19 11:54 Dose: 1 mg Bumetanide (Bumex) 1 mg IVPUSH ONETIME ONE Stop: 06/01/19 16:01 Last Admin: 06/01/19 16:16 Dose: 1 mg Bumetanide (Bumex) 2.5 mg IVPUSH ONETIME ONE Stop: 06/02/19 16:21 Divalproex Sodium (Divalproex Sodium) 250 mg PO ONETIME ONE Stop: 06/02/19 16:16 Furosemide (Lasix) 60 mg IVPUSH ONETIME ONE Stop: 05/27/19 13:34 Last Admin: 05/27/19 14:08 Dose: 60 mg Furosemide (Lasix) 60 mg IVPUSH ONETIME ONE Stop: 05/28/19 07:01 Last Admin: 05/28/19 08:07 Dose: 60 mg Haloperidol (Haldol) 1 mg PO ONETIME ONE Stop: 05/30/19 22:39 Last Admin: 05/30/19 22:49 Dose: 1 mg Haloperidol (Haldol) 1 mg PO ONETIME ONE Stop: 05/30/19 23:48 Last Admin: 05/31/19 00:04 Dose: 1 mg Haloperidol (Haldol) 2.5 mg PO Q4H PRN PRN Reason: Agitation Last Admin: 05/31/19 17:02 Dose: 2.5 mg Haloperidol (Haldol) 5 mg PO Q4H PRN PRN Reason: Agitation Last Admin: 06/01/19 23:20 Dose: 5 mg Haloperidol Lactate (Haldol) 5 mg IVPUSH ONETIME ONE Stop: 06/01/19 19:30 Last Admin: 06/01/19 19:50 Dose: 5 mg Bumetanide 10 mg/ Dextrose/ (Water) 100 mls @ 5 mls/hr IV TITRATE [facility]; Protocol Stop: 06/04/19 12:01 Last Titration: 06/01/19 19:30 Dose: 2 mg/hr, 20 mls/hr Insulin Human Isoph/Insulin Regular (Humulin 70-30) 30 units SUBCUT ACBREAKFAST [facility] Last Admin: 05/28/19 08:12 Dose: 30 units Insulin Human Isoph/Insulin Regular (Humulin 70-30) 15 units SUBCUT QPM [facility] Last Admin: 05/27/19 17:56 Dose: 15 units Insulin Human Isoph/Insulin Regular (Humulin 70-30) 10 units SUBCUT QPM [facility] Last Admin: 05/29/19 17:44 Dose: 10 units Insulin Human Isoph/Insulin Regular (Humulin 70-30) 25 units SUBCUT ACBREAKFAST [facility] Last Admin: 05/29/19 07:33 Dose: 25 units Insulin Human Isoph/Insulin Regular (Humulin 70-30) 20 units SUBCUT ACBREAKFAST [facility] Last Admin: 05/30/19 08:22 Dose: 20 units Insulin Human Isoph/Insulin Regular (Humulin 70-30) 5 units SUBCUT QPM [facility] Last Admin: 05/30/19 17:37 Dose: 5 units Insulin Human Isoph/Insulin Regular (Humulin 70-30) 20 units SUBCUT ACBREAKFAST [facility] Last Admin: 06/01/19 08:38 Dose: 20 units Insulin Human Isoph/Insulin Regular (Humulin 70-30) 25 units SUBCUT ACBREAKFAST [facility] Last Admin: 06/02/19 09:47 Dose: 25 units Insulin Human Lispro (Humalog) 0 unit SUBCUT QIDACANDBED [facility]; Protocol Last Admin: 05/28/19 08:19 Dose: Not Given Magnesium Hydroxide (Milk Of Magnesia) 30 ml PO Q12H PRN PRN Reason: Constipation Last Admin: 06/01/19 19:51 Dose: 30 ml Melatonin (Melatonin) 9 mg PO BEDTIME [facility] Last Admin: 06/01/19 20:19 Dose: 9 mg Metoprolol Succinate (Toprol Xl) 25 mg PO DAILY [facility] Last Admin: 06/02/19 09:41 Dose: 25 mg Morphine Sulfate (Morphine) 2 mg IVPUSH Q2H PRN PRN Reason: Pain Last Admin: 06/02/19 14:53 Dose: 2 mg Ondansetron HCl (Zofran) 4 mg IV Q6H PRN PRN Reason: Nausea/Vomiting Phytonadione (Aquamephyton) 2.5 mg PO ONETIME ONE Stop: 06/01/19 09:01 Last Admin: 06/01/19 09:27 Dose: 2.5 mg Potassium Chloride (Klor-Con M20) 40 meq PO ONETIME ONE Stop: 05/30/19 12:01 Last Admin: 05/30/19 11:32 Dose: 40 meq Prednisone (Prednisone) 40 mg PO WITHBREAKFAST [facility] Prednisone (Prednisone) 40 mg PO ONETIME ONE Stop: 06/02/19 10:01 Last Admin: 06/02/19 09:42 Dose: 40 mg Risperidone (Risperidal) 0.5 mg PO BEDTIME [facility] Last Admin: 05/30/19 20:05 Dose: 0.5 mg Risperidone (Risperidal) 1 mg PO BEDTIME [facility] Last Admin: 05/31/19 20:02 Dose: 1 mg Risperidone (Risperidal) 1 mg PO BEDTIME [facility] Last Admin: 06/01/19 20:19 Dose: 1 mg Senna/Docusate Sodium (Senna Plus) 1 tab PO BID [facility] Last Admin: 06/02/19 09:41 Dose: 1 tab Sodium Chloride (Saline Flush) 10 ml FLUSH ASDIRECTED PRN PRN Reason: Keep Vein Open Warfarin Sodium (Coumadin) 5 mg PO DAILY@1300 [facility] Last Admin: 05/28/19 13:38 Dose: 5 mg - Exam Quality Assessment: No: Supplemental Oxygen General: Mild Distress. No: Alert, Cooperative HEENT: Pupils Equal Lungs: Wheezing (Diffuse expiratory). No: Normal Respiratory Effort (Increased work of breathing) Cardiovascular: Regular Rhythm, Tachycardia GI/Abdominal Exam: Soft, No Distention Extremities: Pedal Edema. No: Increased Warmth Skin: Warm, Dry Psy/Mental Status: Agitated. No: Alert Sepsis Event Note - Evaluation Sepsis Screening Result: Severe Sepsis Risk - Focused Exam Vital Signs: Vital Signs Temp Pulse Pulse Resp BP BP Pulse Ox 06/02/19 16:00 35.6 C 83 28 H 95/48 L 93 L 06/02/19 14:24 112 H 06/02/19 12:00 35.8 C 96 26 H 92/58 L 95 06/02/19 10:51 97 06/02/19 09:41 116 H 102/60 06/02/19 08:00 108 H 32 H 102/66 94 L 06/02/19 07:02 93 06/02/19 07:00 35.9 C 94 21 H 100/50 L 95 06/02/19 06:00 108 H 17 90/60 96 Date Exam was Performed: 06/02/19 Time Exam was Performed: 17:19 - Problem List & Annotations (1) Acute combined systolic and diastolic CHF, NYHA class 3 SNOMED Code(s): 267008080165867, 229093584, 006278409145067 Code(s): I50.41 - ACUTE COMBINED SYSTOLIC AND DIASTOLIC (CONGESTIVE) HRT FAIL Status: Acute Current Visit: Yes (2) Elevated troponin SNOMED Code(s): 630033179, 699630158, 361953699 Code(s): R79.89 - OTHER SPECIFIED ABNORMAL FINDINGS OF BLOOD CHEMISTRY Status: Acute Current Visit: Yes (3) Ischemic cardiomyopathy SNOMED Code(s): 056939040 Code(s): I25.5 - ISCHEMIC CARDIOMYOPATHY Status: Chronic Current Visit: Yes (4) Insulin dependent diabetes mellitus SNOMED Code(s): 78604448 Code(s): E11.9 - TYPE 2 DIABETES MELLITUS WITHOUT COMPLICATIONS; 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 transplanted heart: [place] heart Associated angina: without angina Qualified Code(s): I25.10 - Atherosclerotic heart disease of [place] coronary artery without angina pectoris (7) CKD (chronic kidney disease) stage 3, GFR 30-59 ml/min SNOMED Code(s): 781851162 Code(s): N18.3 - CHRONIC KIDNEY DISEASE, STAGE 3 (MODERATE) Status: Chronic Current Visit: No - Problem List Review Problem List Initiated/Reviewed/Updated: Yes - My Orders Last 24 Hours: My Active Orders 06/01/19 21:00 risperiDONE [RisperiDAL] 1 mg PO BEDTIME 06/01/19 21:44 Morphine 2 mg IVPUSH Q2H PRN 06/02/19 00:41 Haloperidol Lactate [Haldol] 5 mg IVPUSH Q4H PRN 06/02/19 17:09 LORazepam [Ativan ORAL Concentrate 1MG/0.5 ML U/D] 1 mg PO Q1H PRN Morphine [Morphine 10 MG/0.5 ML Oral Syringe] 10 mg PO Q1H PRN 06/02/19 17:12 Resuscitation Status Routine 06/03/19 08:00 predniSONE 40 mg PO WITHBREAKFAST 06/03/19 10:15 Insert Rubi Catheter [Insert Urinary Catheter] [OM.PC] Q24H - Plan Plan:: ASSESSMENT AND PLAN - Acute combined systolic and diastolic congestive heart failure-suboptimal response to diuresis even with bumetanide infusion at a high dose. Her status has continued to decline and kidney function has declined as well. Situation was discussed with his power of civil litigation attorney. We have elected to transition him to comfort care in the setting of severely reduced ejection fraction with valvular abnormalities further complicated by acute on chronic kidney disease and COPD with worsening respiratory status. His power of civil litigation attorney Catarino and additional family is in agreement with the plan. Kidneys I would anticipate his in a limited number of hours to may be a couple of days. -Morphine for pain and or air hunger -Lorazepam for agitation -Discontinue all additional cares and medications Maintenance issues - - DVT prophylaxis -no longer indicated - GI prophylaxis -not indicated - Nutrition - unable to take anything by mouth - Rubi catheter -placed 05/28 for strict intake and output monitoring. Patient is now transitioning to comfort cares but the catheter will be left in place for comfort at the end of life. Disposition -I would anticipate discharge to the home after the hospital stay. Given the decline in respiratory status and failing Wilberto Teixeira M.D.
[2019-06-02] MEDS: LORazepam ORAL Concentrate 1MG/0.5ML U/D PO PRN ×2 (17:23→18:24)
[2019-06-02] MEDS: Morphine 10 MG/0.5 ML Oral Syringe PO PRN (19:49)
[2019-06-02 19:56] VITALS: BP 85/58; PULSE 93
[2019-06-02] MEDS: atorvaSTATin 20 MG Tab PO SCH (22:26)
[2019-06-03] MEDS: Morphine 10 MG/0.5 ML Oral Syringe PO PRN ×2 (01:29→03:55)
[2019-06-03] MEDS: LORazepam ORAL Concentrate 1MG/0.5ML U/D PO PRN (02:41)
[2019-06-03] MEDS ORDERED: predniSONE 20 MG Tab PO SCH (08:00)
--- NOTE | 2019-06-03 08:37 | PCM.DCSUM1 ---
Discharge Summary - Hospital Course Brief History: 78-year-old male with history of chronic systolic congestive heart failure, stage III chronic kidney disease, insulin-dependent diabetes and COPD as well as recent halfway stay for fall with resulting spinal cord contusion who presented with progressive shortness of breath orthopnea and lower extremity edema. He was admitted for an exacerbation of his congestive heart failure with significant weight gain and the above signs and symptoms. Diagnosis: Stroke: No - Discharge Data Discharge Date: 06/03/19 Discharge Disposition: 20 Preliminary Cause of *Q: Other_Special Instruction (acute on chronic systolic CHF) Condition: - Referral to Home Health Primary Care Physician: PCP None - Discharge Diagnosis/Problem(s) (1) Acute combined systolic and diastolic CHF, NYHA class 3 SNOMED Code(s): 899586924370443, 500996578, [id number] ICD Code: I50.41 - ACUTE COMBINED SYSTOLIC AND DIASTOLIC (CONGESTIVE) HRT FAIL Status: Acute (2) Elevated troponin SNOMED Code(s): 533565276, 227996171, 100135507 ICD Code: R79.89 - OTHER SPECIFIED ABNORMAL FINDINGS OF BLOOD CHEMISTRY Status: Acute (3) Ischemic cardiomyopathy SNOMED Code(s): 251445526 ICD Code: I25.5 - ISCHEMIC CARDIOMYOPATHY Status: Chronic (4) Insulin dependent diabetes mellitus SNOMED Code(s): 66388861 ICD Code: E11.9 - TYPE 2 DIABETES MELLITUS WITHOUT COMPLICATIONS; Z79.4 - DETENTION (CURRENT) USE OF INSULIN Status: Chronic (5) Atrial fibrillation SNOMED Code(s): 64617211 ICD Code: I48.91 - UNSPECIFIED ATRIAL FIBRILLATION Status: Chronic Qualifiers: Atrial fibrillation type: permanent Qualified Code(s): I48.21 - Permanent atrial fibrillation (6) CAD (coronary artery disease) SNOMED Code(s): 88847313 ICD Code: I25.10 - ATHSCL HEART DISEASE OF [place] CORONARY ARTERY W/O ANG PCTRS Status: Chronic Qualifiers: Coronary Disease-Associated Artery/Lesion type: [place] artery [place] vs. transplanted heart: [place] heart Associated angina: without angina Qualified Code(s): I25.10 - Atherosclerotic heart disease of [place] coronary artery without angina pectoris (7) CKD (chronic kidney disease) stage 3, GFR 30-59 ml/min SNOMED Code(s): 876198530 ICD Code: N18.3 - CHRONIC KIDNEY DISEASE, STAGE 3 (MODERATE) Status: Chronic - Patient Summary/Data Hospital Course: Ed presented to the emergency room from the halfway with progressive shortness of breath, dyspnea on exertion and lower extremity edema. Work-up in the emergency room was consistent with congestive heart failure with a chest x- ray suggesting pulmonary edema and examination consistent with heart failure. He did have an elevated d-dimer but lower extremity ultrasound was not suggestive of DVT. He was chronically anticoagulated. He was mildly confused compared to his baseline. His troponin was mildly elevated. EKG did not suggest ischemia. There was no evidence for underlying infection. He received diuretics in the emergency room and was admitted to the hospital for further management. Over the first couple of days we did make some progress with moderate diuresis. His troponin level trended down. He did not have any chest pain. Kidney function initially remained stable. 2 days after admission we were able to complete an echocardiogram which showed severely reduced left ventricular function as well as some valvular abnormalities and global hypokinesis consistent with his previous ischemic cardiomyopathy with a slight worsening of the findings. We continue the IV diuresis over the next couple of days but unfortunately the diuresis was less successful. Diuresis was hampered by a slight worsening of his renal function. He had increasing difficulties with confusion and some agitation in the evenings. His diuretics were escalated and we tried a variety of different medications to help with his evening and nocturnal agitation. Unfortunately the diuresis declined even further and his creatinine carlin even further. We did not make much progress in the way of agitation. We elected to transfer the patient to the intensive care unit to start a bumetanide infusion. The hope was that this would overcome the chronic kidney disease and be more effective with diuresis given persistent elevation of his weight, edema and shortness of breath/orthopnea. Unfortunately even with high-dose diuretics we were not able to achieve much in the way of diuresis. His kidney function remained elevated but did not worsen dramatically. We had increasing difficulties with agitation. Discussions were held with the family and his power of trust and estates attorney about the severity of the situation. I was concerned that the patient was entering the dying process. They were in agreement. They felt that more aggressive interventions or transfer would not be consistent with the patient's previously expressed wishes. Patient was transitioned to comfort care only and the diuretics were discontinued. We transition to use morphine and lorazepam as needed for comfort. The patient peacefully about 12 hours after the transition to comfort care. Cause of is acute on chronic systolic congestive heart failure. I suspect the exacerbating factor may have been the stress of his recent fall and injury. - Discharge Plan Home Medications: Home Meds allopurinoL [Zyloprim] 300 mg PO DAILY 03/25/16 [History] metFORMIN HCl [Metformin HCl] 1,000 mg PO DAILY 03/25/16 [History] Insulin NPH/Insulin Reg,Human [Novolin 70-30] 45 units SQ DAILY 04/29/19 [ History] Potassium Chloride 20 meq PO BID 04/29/19 [History] Warfarin [Coumadin] 5 mg PO DAILY 04/29/19 [History] atorvaSTATin [Lipitor] 40 mg PO BEDTIME 04/29/19 [History] oxyCODONE 5 mg PO Q4H PRN #20 tablet 05/06/19 [Rx] Clopidogrel Bisulfate [Clopidogrel] 75 mg PO DAILY 05/27/19 [History] Furosemide 80 mg PO BIDAC 05/27/19 [History] Ipratropium [Atrovent] 0.5 mg IH Q6HR 05/27/19 [History] Ipratropium/Albuterol Sulfate [Iprat-Albut 0.5-3(2.5) MG/3 ML] 1 vial NEB Q6H PRN 05/27/19 [History] Metoprolol Succinate 25 mg PO DAILY 05/27/19 [History] levoFLOXacin [Levofloxacin] 250 mg PO DAILY 05/27/19 [History] metOLazone [Metolazone] 2.5 mg PO WEEKLY 05/27/19 [History] predniSONE [Prednisone] 40 mg PO ASDIRECTED 05/27/19 [History] Patient Handouts: Heart Failure, [id number] Forms: ED Department Discharge Referrals: PCP,None [Primary Care Provider] - - Discharge Summary/Plan Comment DC Time >30 min.: No - Patient Data Vitals - Most Recent: Last Vital Signs Temp 35.4 C 06/02/19 19:51 Pulse 93 06/02/19 19:51 Resp 36 H 06/02/19 19:51 BP 85/58 L 06/02/19 19:51 Pulse Ox 93 L 06/02/19 19:51 Weight - Most Recent: 110.7 kg I&O - Last 24 hours: Intake & Output 06/02/19 06/03/19 06/03/19 22:59 06:59 14:59 Output Total 250 Balance -250 Med Orders - Current: Current Medications Acetaminophen (Tylenol) 650 mg PO Q4H PRN PRN Reason: Pain (Mild 1-3)/fever Last Admin: 06/01/19 19:51 Dose: 650 mg Allopurinol (Zyloprim) 100 mg PO DAILY [facility] Last Admin: 06/02/19 09:41 Dose: 100 mg Atorvastatin Calcium (Lipitor) 40 mg PO BEDTIME [facility] Last Admin: 06/02/19 22:26 Dose: Not Given Clopidogrel Bisulfate (Plavix) 75 mg PO DAILY [facility] Last Admin: 06/02/19 09:41 Dose: 75 mg Haloperidol Lactate (Haldol) 5 mg IVPUSH Q4H PRN PRN Reason: severe agitation Last Admin: 06/02/19 18:42 Dose: 5 mg Lorazepam (Ativan Oral Concentrate 1mg/0.5 Ml U/D) 1 mg PO Q1H PRN PRN Reason: Agitation Last Admin: 06/03/19 02:41 Dose: 1 mg Morphine Sulfate (Morphine 10 Mg/0.5 Ml Oral Syringe) 20 mg PO Q1H PRN PRN Reason: pain/air hunger Last Admin: 06/03/19 03:55 Dose: 20 mg Ondansetron HCl (Zofran Odt) 4 mg PO Q6H PRN PRN Reason: Nausea able to take PO Oxycodone HCl (Oxycodone) 5 mg PO Q4H PRN PRN Reason: Pain Last Admin: 06/02/19 00:24 Dose: 5 mg Sodium Chloride (Saline Flush) 10 ml FLUSH ASDIRECTED PRN PRN Reason: Keep Vein Open Last Admin: 05/29/19 22:38 Dose: 10 ml Discontinued Medications Albuterol (Proventil Neb Soln) 2.5 mg NEB Q4H PRN PRN Reason: Shortness Of Breath/wheezing Albuterol/Ipratropium (Duoneb 3.0-0.5 Mg/3 Ml) 3 ml NEB QIDRT [place] Last Admin: 06/02/19 14:23 Dose: 3 ml Allopurinol (Zyloprim) 300 mg PO DAILY [facility] Last Admin: 05/30/19 08:26 Dose: 300 mg Bumetanide (Bumex) 2 mg IVPUSH Q12H [facility] Last Admin: 06/01/19 12:24 Dose: Not Given Bumetanide (Bumex) 1 mg IVPUSH ONETIME ONE Stop: 06/01/19 12:01 Last Admin: 06/01/19 11:54 Dose: 1 mg Bumetanide (Bumex) 1 mg IVPUSH ONETIME ONE Stop: 06/01/19 16:01 Last Admin: 06/01/19 16:16 Dose: 1 mg Bumetanide (Bumex) 2.5 mg IVPUSH ONETIME ONE Stop: 06/02/19 16:21 Last Admin: 06/02/19 18:24 Dose: Not Given Divalproex Sodium (Divalproex Sodium) 250 mg PO ONETIME ONE Stop: 06/02/19 16:16 Last Admin: 06/02/19 18:14 Dose: Not Given Furosemide (Lasix) 60 mg IVPUSH ONETIME ONE Stop: 05/27/19 13:34 Last Admin: 05/27/19 14:08 Dose: 60 mg Furosemide (Lasix) 60 mg IVPUSH ONETIME ONE Stop: 05/28/19 07:01 Last Admin: 05/28/19 08:07 Dose: 60 mg Haloperidol (Haldol) 1 mg PO ONETIME ONE Stop: 05/30/19 22:39 Last Admin: 05/30/19 22:49 Dose: 1 mg Haloperidol (Haldol) 1 mg PO ONETIME ONE Stop: 05/30/19 23:48 Last Admin: 05/31/19 00:04 Dose: 1 mg Haloperidol (Haldol) 2.5 mg PO Q4H PRN PRN Reason: Agitation Last Admin: 05/31/19 17:02 Dose: 2.5 mg Haloperidol (Haldol) 5 mg PO Q4H PRN PRN Reason: Agitation Last Admin: 06/01/19 23:20 Dose: 5 mg Haloperidol Lactate (Haldol) 5 mg IVPUSH ONETIME ONE Stop: 06/01/19 19:30 Last Admin: 06/01/19 19:50 Dose: 5 mg Bumetanide 10 mg/ Dextrose/ (Water) 100 mls @ 5 mls/hr IV TITRATE [facility]; Protocol Stop: 06/04/19 12:01 Last Titration: 06/01/19 19:30 Dose: 2 mg/hr, 20 mls/hr Insulin Human Isoph/Insulin Regular (Humulin 70-30) 30 units SUBCUT ACBREAKFAST [facility] Last Admin: 05/28/19 08:12 Dose: 30 units Insulin Human Isoph/Insulin Regular (Humulin 70-30) 15 units SUBCUT QPM [facility] Last Admin: 05/27/19 17:56 Dose: 15 units Insulin Human Isoph/Insulin Regular (Humulin 70-30) 10 units SUBCUT QPM [facility] Last Admin: 05/29/19 17:44 Dose: 10 units Insulin Human Isoph/Insulin Regular (Humulin 70-30) 25 units SUBCUT ACBREAKFAST [facility] Last Admin: 05/29/19 07:33 Dose: 25 units Insulin Human Isoph/Insulin Regular (Humulin 70-30) 20 units SUBCUT ACBREAKFAST [facility] Last Admin: 05/30/19 08:22 Dose: 20 units Insulin Human Isoph/Insulin Regular (Humulin 70-30) 5 units SUBCUT QPM [facility] Last Admin: 05/30/19 17:37 Dose: 5 units Insulin Human Isoph/Insulin Regular (Humulin 70-30) 20 units SUBCUT ACBREAKFAST [facility] Last Admin: 06/01/19 08:38 Dose: 20 units Insulin Human Isoph/Insulin Regular (Humulin 70-30) 25 units SUBCUT ACBREAKFAST [facility] Last Admin: 06/02/19 09:47 Dose: 25 units Insulin Human Lispro (Humalog) 0 unit SUBCUT QIDACANDBED [facility]; Protocol Last Admin: 05/28/19 08:19 Dose: Not Given Magnesium Hydroxide (Milk Of Magnesia) 30 ml PO Q12H PRN PRN Reason: Constipation Last Admin: 06/01/19 19:51 Dose: 30 ml Melatonin (Melatonin) 9 mg PO BEDTIME [facility] Last Admin: 06/01/19 20:19 Dose: 9 mg Metoprolol Succinate (Toprol Xl) 25 mg PO DAILY [facility] Last Admin: 06/02/19 09:41 Dose: 25 mg Morphine Sulfate (Morphine) 2 mg IVPUSH Q2H PRN PRN Reason: Pain Last Admin: 06/02/19 14:53 Dose: 2 mg Morphine Sulfate (Morphine 10 Mg/0.5 Ml Oral Syringe) 10 mg PO Q1H PRN PRN Reason: pain/air hunger Last Admin: 06/02/19 17:42 Dose: 10 mg Ondansetron HCl (Zofran) 4 mg IV Q6H PRN PRN Reason: Nausea/Vomiting Phytonadione (Aquamephyton) 2.5 mg PO ONETIME ONE Stop: 06/01/19 09:01 Last Admin: 06/01/19 09:27 Dose: 2.5 mg Potassium Chloride (Klor-Con M20) 40 meq PO ONETIME ONE Stop: 05/30/19 12:01 Last Admin: 05/30/19 11:32 Dose: 40 meq Prednisone (Pred[facility]one) [facility] Prednisone (Prednisone) 40 mg PO ONETIME ONE Stop: 06/02/19 10:01 Last Admin: 06/02/19 09:42 Dose: 40 mg Risperidone (Risperidal) 0.5 mg PO BEDTIME [facility] Last Admin: 05/30/19 20:05 Dose: 0.5 mg Risperidone (Risperidal) 1 mg PO BEDTIME [facility] Last Admin: 05/31/19 20:02 Dose: 1 mg Risperidone (Risperidal) 1 mg PO BEDTIME [facility] Last Admin: 06/01/19 20:19 Dose: 1 mg Senna/Docusate Sodium (Senna Plus) 1 tab PO BID [facility] Last Admin: 06/02/19 09:41 Dose: 1 tab Sodium Chloride (Saline Flush) 10 ml FLUSH ASDIRECTED PRN PRN Reason: Keep Vein Open Warfarin Sodium (Coumadin) 5 mg PO DAILY@1300 [facility] Last Admin: 05/28/19 13:38 Dose: 5 mg
== END 2019-06-03 10:45 | disposition expired | DRG 291 ==
LOC: JP.ED 12:43 → JP.MS 15:11 → JP.ICU 06-01 11:41
PROVIDERS: ADMIT Internal Medicine; ATTEND Internal Medicine
DX: I11.0 Hypertensive heart disease with heart failure (principal); I50.23 Acute on chronic systolic (congestive) heart failure; N28.9 Disorder of kidney and ureter, unspecified; I13.0 Hypertensive heart and chronic kidney disease with heart failure and stage 1 through stage 4 chronic kidney disease, or unspecified chronic kidney disease; I50.41 Acute combined systolic (congestive) and diastolic (congestive) heart failure; J96.91 Respiratory failure, unspecified with hypoxia; E11.9 Type 2 diabetes mellitus without complications; I48.21 Permanent atrial fibrillation; Z66 Do not resuscitate; Z51.5 Encounter for palliative care; I25.5 Ischemic cardiomyopathy; R74.8 Abnormal levels of other serum enzymes; E11.22 Type 2 diabetes mellitus with diabetic chronic kidney disease; M75.100 Unspecified rotator cuff tear or rupture of unspecified shoulder, not specified as traumatic; I25.10 Atherosclerotic heart disease of native coronary artery without angina pectoris; N18.3 Chronic kidney disease, stage 3 (moderate); R45.1 Restlessness and agitation; R41.0 Disorientation, unspecified; E11.649 Type 2 diabetes mellitus with hypoglycemia without coma; E78.00 Pure hypercholesterolemia, unspecified; I08.1 Rheumatic disorders of both mitral and tricuspid valves; J44.9 Chronic obstructive pulmonary disease, unspecified; T14.8XXD Other injury of unspecified body region, subsequent encounter; W19.XXXD Unspecified fall, subsequent encounter; R79.89 Other specified abnormal findings of blood chemistry; S02.2XXD Fracture of nasal bones, subsequent encounter for fracture with routine healing; Z79.01 Long term (current) use of anticoagulants; Z79.82 Long term (current) use of aspirin; Z79.52 Long term (current) use of systemic steroids; Z88.8 Allergy status to other drugs, medicaments and biological substances; Z98.49 Cataract extraction status, unspecified eye; Z95.5 Presence of coronary angioplasty implant and graft; Z79.02 Long term (current) use of antithrombotics/antiplatelets; Z95.1 Presence of aortocoronary bypass graft; Z98.890 Other specified postprocedural states; Z79.4 Long term (current) use of insulin; Z99.81 Dependence on supplemental oxygen; Z79.899 Other long term (current) drug therapy
CPT/HCPCS: 36415; 36600; 51702; 70450; 80048; 81001; 82803; 82962; 83735; 84439; 84443; 84484; 85027; 85379; 85610; 93005; 93010; 93306; 93970; 94640; 96374; 97110-GP; 97161-GP; 97530-GP; 99284; 99285-25; A9270-GY; J1630; J1815; J1940; J2270; J3490; J7060; J7620-GY